=== PATIENT | male | born 1960 | race Caucasian/White ===

== ENCOUNTER → 2020-07-29 14:45 | Outpatient (BNVA) | payer OTHER, SELFPAY | PROVIDERS: PCP Internal Medicine; Referring Provider Internal Medicine; Visit Provider Urology | DX: R35.1 Nocturia (principal); N40.1 Benign prostatic hyperplasia with lower urinary tract symptoms; N13.8 Other obstructive and reflux uropathy; Z88.8 Allergy status to other drugs, medicaments and biological substances; Z12.5 Encounter for screening for malignant neoplasm of prostate | CPT/HCPCS: 99202 ==

== ENCOUNTER 2020-08-12 10:21 | Outpatient (REF) | payer OTHER, SELFPAY ==
[2020-08-12 13:50] LABS: Urine Cytology See Pathology rpt
[2020-08-12 14:22] LABS: Cholesterol 134 mg/dL; Glucose Fasting 97 mg/dL (60-99); HDL Cholesterol 50 mg/dL; LDL Cholesterol Calculated 75 mg/dl; Triglycerides 46 mg/dL
[2020-08-12 14:31] LABS: Estimated Average Glucose 126 mg/dL
[2020-08-12 14:36] LABS: PSA,Total (Free>4and<10) 1.27 ng/mL (0.00-4.00)
== END 2020-08-12 10:22 | disposition home or self-care (01) ==
LOC: HO.10HDL 10:21
PROVIDERS: Absent Provider Internal Medicine; PCP Internal Medicine; Visit Provider Urology
DX: N40.1 Benign prostatic hyperplasia with lower urinary tract symptoms (principal); N13.8 Other obstructive and reflux uropathy; E11.9 Type 2 diabetes mellitus without complications
CPT/HCPCS: 80061; 82947; 83036; 84153; 88112

== ENCOUNTER 2020-08-28 11:18 | Outpatient (REF) | payer OTHER, SELFPAY ==
--- NOTE | 2020-08-28 11:22 | US_ITS ---
EXAMINATION: US PELVIS LIMITED (BLADDER) CLINICAL INFORMATION: Poor urinary stream. COMPARISON: CT abdomen and pelvis with contrast dated 11/03/2015. TECHNIQUE: Real-time imaging of the bladder. FINDINGS: BLADDER: Well distended and normal. Bilateral ureteral jets are demonstrated. Prevoid bladder volume is 171.8 mL. Postvoid bladder volume is 9.9 mL. Prostate volume is 28.5 mL. There is a hypoechoic avascular area seen in central prostate gland. US/US bladder IMPRESSION: Tiny postvoid residual bladder volume. Hypoechoic avascular area in the prostate may represent a TURP defect. Correlate with clinical or surgical history.
== END 2020-08-28 11:19 | disposition home or self-care (01) ==
LOC: HO.US 11:18
PROVIDERS: PCP Internal Medicine; Visit Provider Urology
DX: N40.1 Benign prostatic hyperplasia with lower urinary tract symptoms (principal); R39.12 Poor urinary stream; N13.8 Other obstructive and reflux uropathy
CPT/HCPCS: 76857

== ENCOUNTER → 2020-09-04 14:56 | Outpatient (BNVA) | payer OTHER, SELFPAY | PROVIDERS: Visit Provider Urology | DX: Z76.89 Persons encountering health services in other specified circumstances (principal) ==

== ENCOUNTER → 2020-10-02 10:23 | Outpatient (BNVA) | payer OTHER, SELFPAY | PROVIDERS: Visit Provider Urology | DX: N40.1 Benign prostatic hyperplasia with lower urinary tract symptoms (principal); R35.1 Nocturia; N13.8 Other obstructive and reflux uropathy | CPT/HCPCS: 81002; 99212 ==

== ENCOUNTER 2020-12-19 08:44 | Outpatient (REF) | payer OTHER, SELFPAY ==
[2020-12-19 10:48] LABS: MANUAL DIFF FLAG NO
[2020-12-19 11:00] LABS: Basophils Percent Auto 0.8 % (0-2); Eosinophils Absolute Auto 0.1 X10*3/uL (0.0-0.4); Eosinophils Percent Auto 1.7 % (0-4); Hematocrit 38.9 % (42-52); Hemoglobin 12.6 g/dl (14.0-18.0); Imm Gran Abs Auto 0.01 X10*3/uL (0.00-0.03); Imm Gran Pct Auto 0.2 % (0.0-0.4); Lymphocytes Percent Auto 20.5 % (20-40); Mean Corpuscular HGB Conc 32.4 g/dl (31.0-36.0); Mean Corpuscular Hemoglobin 30.1 pg (27.0-33.0); Mean Corpuscular Volume 92.8 fL (80-98); Mean Platelet Volume 11.4 fL (9.4-12.4); Monocytes Absolute Auto 0.3 X10*3/uL (0.1-1.2); Monocytes Percent Auto 6.3 % (2-11); Neutrophils Absolute Auto 3.4 X10*3/uL (2.0-8.3); Neutrophils Percent Auto 70.5 % (45-73); Platelet Count 158 X10*3/uL (160-400); Red Blood Count 4.19 X10*6/uL (4.60-5.80); Red Cell Distribution Width 13.5 % (11.0-16.0); White Blood Count 4.8 X10*3/uL (4.8-10.8)
[2020-12-19 11:17] LABS: Alanine Aminotransferase 15 U/L (0-40); Albumin Level 4.2 g/dL (3.5-5.0); Alkaline Phosphatase 80 U/L (39-117); Anion Gap 14 (12-20); Aspartate Amino Transferase 15 U/L (5-37); Bilirubin Total < 0.2 mg/dL (0.0-1.0); Blood Urea Nitrogen 17 mg/dL (9-16); Calcium 8.8 mg/dL (8.4-10.2); Carbon Dioxide 27 mmol/L (22-29); Chloride 106 mmol/L (96-108); Cholesterol 154 mg/dL; Estimated Glomerular Filt Rate > 60; Glucose Fasting 107 mg/dL (60-99); HDL Cholesterol 44 mg/dL; LDL Cholesterol Calculated 80 mg/dl; Potassium 3.5 mmol/L (3.3-5.1); Sodium 143 mmol/L (135-145); Total Protein 6.5 g/dL (6.5-8.0); Triglycerides 153 mg/dL
[2020-12-19 11:18] LABS: Estimated Average Glucose 123 mg/dL; Hemoglobin A1c % 5.9 %
== END 2020-12-19 08:45 | disposition home or self-care (01) ==
LOC: HO.10HDL 08:44
PROVIDERS: Visit Provider Internal Medicine
DX: Z00.00 Encounter for general adult medical examination without abnormal findings (principal); E11.9 Type 2 diabetes mellitus without complications
CPT/HCPCS: 36415; 80053; 80061; 83036; 85025

== ENCOUNTER 2021-06-19 07:59 | Outpatient (REF) | payer OTHER, SELFPAY ==
[2021-06-19 10:29] LABS: Estimated Average Glucose 123 mg/dL; Hemoglobin A1c % 5.9 %
[2021-06-19 10:33] LABS: Alanine Aminotransferase 21 U/L (0-40); Albumin Level 4.2 g/dL (3.5-5.0); Alkaline Phosphatase 76 U/L (39-117); Anion Gap 12 (12-20); Aspartate Amino Transferase 22 U/L (5-37); Bilirubin Total 0.5 mg/dL (0.0-1.0); Blood Urea Nitrogen 20 mg/dL (9-16); Calcium 9.3 mg/dL (8.4-10.2); Carbon Dioxide 27 mmol/L (22-29); Chloride 106 mmol/L (96-108); Cholesterol 150 mg/dL; Estimated Glomerular Filt Rate > 60; Glucose Fasting 124 mg/dL (60-99); HDL Cholesterol 49 mg/dL; LDL Cholesterol Calculated 85 mg/dl; Potassium 3.6 mmol/L (3.3-5.1); Sodium 141 mmol/L (135-145); Total Protein 6.6 g/dL (6.5-8.0); Triglycerides 82 mg/dL
[2021-06-19 10:50] LABS: Prostate Specific Antigen 0.89 ng/mL (<0.05-4.0); Thyroid Stimulating Hormone 3.03 uIU/mL (0.32-4.0)
== END 2021-06-19 08:00 | disposition home or self-care (01) ==
LOC: HO.10HDL 07:59
PROVIDERS: Absent Provider Urology; Visit Provider Internal Medicine
DX: Z12.5 Encounter for screening for malignant neoplasm of prostate (principal); E11.9 Type 2 diabetes mellitus without complications; N40.1 Benign prostatic hyperplasia with lower urinary tract symptoms; N13.8 Other obstructive and reflux uropathy; E03.9 Hypothyroidism, unspecified
CPT/HCPCS: 36415; 80053; 80061; 83036; 84153; 84443

== ENCOUNTER → 2021-06-23 10:56 | Outpatient (BNVA) | payer OTHER, SELFPAY | PROVIDERS: Visit Provider Urology ==

== ENCOUNTER 2021-12-21 09:02 | Outpatient (REF) | payer OTHER, SELFPAY ==
[2021-12-21 10:53] LABS: Estimated Average Glucose 126 mg/dL
[2021-12-21 11:00] LABS: Cholesterol 159 mg/dL; Glucose Fasting 119 mg/dL (60-99); HDL Cholesterol 47 mg/dL; LDL Cholesterol Calculated 94 mg/dl; Triglycerides 92 mg/dL
[2021-12-21 11:25] LABS: Thyroid Stimulating Hormone 2.14 uIU/mL (0.32-4.0)
== END 2021-12-21 09:03 | disposition home or self-care (01) ==
LOC: HO.10HDL 09:02
PROVIDERS: Visit Provider Internal Medicine
DX: E11.65 Type 2 diabetes mellitus with hyperglycemia (principal); E03.9 Hypothyroidism, unspecified
CPT/HCPCS: 36415; 80061; 82947; 83036; 84443

== ENCOUNTER → 2022-01-12 13:18 | Outpatient (BNVA) | payer OTHER, SELFPAY | PROVIDERS: PCP Internal Medicine; Visit Provider Orthopaedic Surgery | DX: M65.342 Trigger finger, left ring finger (principal) | CPT/HCPCS: 20550; 99202; J1100 ==

== ENCOUNTER 2022-05-05 09:12 | Outpatient (REF) | payer OTHER, SELFPAY ==
[2022-05-05 11:07] LABS: Estimated Average Glucose 123 mg/dL; Hemoglobin A1c % 5.9 %
[2022-05-05 11:15] LABS: Cholesterol 142 mg/dL; Glucose Fasting 106 mg/dL (60-99); HDL Cholesterol 56 mg/dL; LDL Cholesterol Calculated 72 mg/dl; Triglycerides 72 mg/dL
[2022-05-05 11:37] LABS: Thyroid Stimulating Hormone 1.61 uIU/mL (0.32-4.0)
== END 2022-05-05 09:13 | disposition home or self-care (01) ==
LOC: HO.10HDL 09:12
PROVIDERS: Visit Provider Internal Medicine
DX: Z00.00 Encounter for general adult medical examination without abnormal findings (principal); E03.9 Hypothyroidism, unspecified; E11.65 Type 2 diabetes mellitus with hyperglycemia
CPT/HCPCS: 36415; 80061; 82947; 83036; 84443

== ENCOUNTER 2022-06-16 09:41 | Outpatient (REF) | payer OTHER, SELFPAY ==
[2022-06-16 11:25] LABS: Prostate Specific Antigen 0.81 ng/mL (<0.05-4.0)
== END 2022-06-16 09:42 | disposition home or self-care (01) ==
LOC: HO.10HDL 09:41
PROVIDERS: Visit Provider Urology
DX: N40.1 Benign prostatic hyperplasia with lower urinary tract symptoms (principal); N13.8 Other obstructive and reflux uropathy; Z12.5 Encounter for screening for malignant neoplasm of prostate
CPT/HCPCS: 36415; 84153

== ENCOUNTER → 2022-06-22 08:31 | Outpatient (BNVA) | payer OTHER, SELFPAY | PROVIDERS: PCP Internal Medicine; Visit Provider Urology | DX: N40.1 Benign prostatic hyperplasia with lower urinary tract symptoms (principal); R35.1 Nocturia; N13.8 Other obstructive and reflux uropathy | CPT/HCPCS: 51798; 99212 ==

== ENCOUNTER 2022-09-10 13:45 | Emergency (ER) | payer OTHER, SELFPAY ==
[2022-09-10 13:55] VITALS: BP 151/87; PULSE 123; RESP 18; TEMP 36.1; O2SAT 96; BMI 27.6
--- NOTE | 2022-09-10 14:17 | ED.GENADULT ---
HPI - General Adult General Chief complaint: General Medical Stated complaint: vomiting, Covid + Time Seen by Provider: 09/10/22 14:17 Source: patient and family (patient's ) Mode of arrival: ambulatory Limitations: no limitations History of Present Illness HPI narrative: Patient is a 62 year old assigned male at with a history of DM presenting to the emergency department today with nausea and vomiting. Patient states that 5 days ago he was diagnosed with COVID-19 and was started on Paxlovid. Patient states that he has continued being nauseous and vomiting. Patient states that he has Zofran at home. Patient denies any dizziness, lightheadedness, abdominal pain, fever, chills, blurry vision, double vision, loss of vision, chest pain, difficulty breathing, shortness of breath, back pain, night sweats, pain with urination, increased urinary frequency, increased urinary urgency, blood in his urine or stool, syncope or a near syncopal episode, recent trauma or falls, bowel incontinence, bladder incontinence, bowel retention, bladder retention, or any other complaints at this time. Onset (ago): day(s) (5) Severity: mild Severity scale (1-10): 3 Relieving factors: none Exacerbating factors: none Associated symptoms: nausea/vomiting Treatments prior to arrival: none Related Data Home Medications Medication Instructions Recorded Confirmed aspirin 81 mg tablet,delayed 81 mg PO DAILY 07/03/21 07/15/22 release (Adult Low Dose Aspirin) Previous Rx's Medication Instructions Recorded glipizide 5 mg tablet, extended 5 mg PO DAILY #90 tabs 09/28/21 release 24 hr hydrochlorothiazide 12.5 mg tablet 12.5 mg PO DAILY #90 tabs 09/28/21 levothyroxine 50 mcg tablet 50 mcg PO DAILY #90 tabs 09/28/21 metformin 500 mg tablet 500 mg PO BID #180 tabs 09/28/21 omeprazole 20 mg capsule,delayed 20 mg PO DAILY #90 caps 09/28/21 release pravastatin 80 mg tablet 80 mg PO DAILY #90 tabs 11/16/21 amlodipine 5 mg tablet 5 mg PO DAILY #90 tabs 12/07/21 blood sugar diagnostic (FreeStyle #200 ea 12/21/21 Lite Strips) lancets 28 gauge #200 ea 12/21/21 finasteride 5 mg tablet 5 mg PO DAILY 90 days #90 tabs 10/04/22 terazosin 5 mg capsule 5 mg PO BEDTIME 90 days #90 caps 06/22/22 meclizine 25 mg chewable tablet 25 mg PO DAILY #90 tabs 08/20/22 ondansetron 4 mg disintegrating 4 mg PO Q8H #10 tabs 08/20/22 tablet nirmatrelvir 300 mg (150 mg See Rx Instructions PO .COMPLEX 09/06/22 x2)-ritonavir 100 mg tablet,dose #30 tabs pack(EUA) (Paxlovid) ondansetron HCl 4 mg tablet 4 mg PO Q8H PRN nausea and 09/09/22 vomiting #20 tabs Allergies Allergy/AdvReac Type Severity Reaction Status Date / Time lisinopril [LISINOPRIL] Allergy Severe ANGIOEDEMA, Verified 07/15/22 14:43 hives Review of Systems Constitutional: Constitutional: Reports no additional constitutional complaints, Denies chills, Denies fever(s) and Denies night sweats Eyes: Eyes: Reports no additional eye complaints, Denies blurry vision, Denies change in vision, Denies diplopia, Denies eye discharge, Denies loss of vision and Denies eye pain ENT: Denies dizziness Cardiovascular: Cardiovascular: Reports no additional cardiovascular complaints, Denies chest pain, Denies lightheadedness, Denies Loss of Consciousness and Denies dyspnea Respiratory: Respiratory: Reports no additional respiratory complaints and Denies dyspnea Gastrointestinal: Gastrointestinal: Reports no additional gastrointestinal complaints, Denies abdominal pain, Denies melena, Denies hematochezia, Denies change in bowel habits, Denies change in stool character, Reports nausea and Reports vomiting Genitourinary: Genitourinary: Reports no additional male genitourinary complaints, Denies hematuria, Denies oliguria, Denies difficulty urinating, Denies dysuria, Denies urinary frequency, Denies urinary hesitancy, Denies urinary incontinence and Denies urinary urgency Musculoskeletal: Musculoskeletal: Reports no additional musculoskeletal complaints, Denies numbness and Denies tingling Neurologic: Denies dizziness, Denies loss of vision, Denies numbness and Denies tingling Psychiatric: Psychiatric: Reports no additional psychiatric complaints Endocrine: Endocrine: Reports no additional endocrine complaints Hematologic/Lymphatic: Hematologic/Lymphatic: Reports no additional hematologic/lymphatic complaints Allergic/Immunologic: Allergic/Immunologic: Reports no additional allergic/immunologic complaints PMFSH Past Medical History Attestation statement: The following information was validated with the patient. Source: old records reviewed, obtained from family (patient's ) and nursing notes reviewed Medical History Diabetes Diabetes mellitus with coincident hypertension Hypertension Hypothyroidism Surgical History History of cholecystectomy History of umbilical hernia repair Family History Family History Father No problems noted. Mother No problems noted. Son Substance use disorder Other Mental health disorder Social History Social History Housing: House Alcohol intake: current Alcohol intake frequency: holidays/special occasions only Patient Tobacco Use Status: Former Tobacco user Tobacco use type: Cigarette e-Cigarette/Vaping Use: Never Used Second Hand Smoke Exposure: No Advance Directives: Yes Advance Directives Information Provided: Yes Advance Directives on File: No service: Yes Current occupational status: retired Current occupation: rt hand Cognitive needs: No Hearing needs: No Vision needs: Yes Physical Exam ED Vital Signs: Vital Signs - 24 hr 09/10/22 13:55 Temperature 97 F Pulse Rate 123 H Respiratory Rate 18 Blood Pressure 151/87 H Pulse Oximetry 96 Oxygen Delivery Method Room Air BMI result Body Mass Index 27.6 Const General: cooperative, no acute distress, alert and awake Nutritional Appearance: well nourished Orientation/consciousness: patient oriented x3 Limitations: no limitations [facility] Head: Yes normal to inspection and Yes atraumatic Ears: hearing grossly normal bilaterally and external ears normal General nose exam: Normal external nose present, no nasal discharge noted and no epistaxis Face and sinus: Yes normal facial exam, No abrasion and No laceration Mouth: Normal oral and palatal mucosa present, no drooling and no muffled voice Eyes General: appearance normal, both eyes and all related structures Periorbital: periorbital findings normal Eyelids: Yes eyelids normal Conjunctivae: conjunctivae normal Pupils: Equal, round and reactive pupils present EOM: EOMs intact bilaterally Neck Neck: Yes normal visual inspection, Yes full ROM and Yes no lymphadenopathy Chest Chest palpation & inspection: normal inspection of the chest Resp Effort & Inspection: normal respiratory effort and able to speak in complete sentences Auscultation: clear to auscultation bilaterally Cardio Rate: regular rate Rhythm: regular rhythm GI Inspection: Yes normal to inspection Palpation (GI): Soft to palpation, not firm, nontender and no guarding Neuro General: patient oriented x3 and moves all extremities Cranial nerves: Yes Equal, round and reactive pupils present Cognition (Neuro): normal cognition Motor exam (neuro): 5/5 motor strength present throughout Sensory Exam: Normal double simultaneous stimulation for sensation Coordination: [id number] test normal Extrem General: Yes normal to inspection, Yes full ROM and Yes capillary refill normal Psych Appearance: grossly normal Mental Status: mental status grossly normal Affect: normal affect Attitude: cooperative Thought process: Normal thought process present Thought content: Normal thought content present Insight: Good insight present (Psych) Medications Administered Discontinued Medications Generic Name Dose Route Start Last Admin Trade Name Freq PRN Reason Stop Dose Admin Sodium Chloride 1,000 mls @ 999 mls/hr 09/10/22 14:30 09/10/22 15:01 Ns IV 09/10/22 15:30 999 mls/hr .Q1H1M [place] Administration Metoclopramide HCl 10 mg 09/10/22 14:29 09/10/22 15:01 Metoclopramide Hcl 10 Mg/2 Ml Vial IVPUSH 09/10/22 14:30 10 mg ONCE ONE Administration Medical Decision Making Medical Decision Making [facility] Narrative: Patient is a 62 year old assigned male at with a history of DM presenting to the emergency department today with nausea and vomiting. Patient's physical exam was unremarkable. Patient's blood work showed a decreased potassium of 2.9 but was otherwise unremarkable. I explained my physical exam findings as well as all test results to the patient and the patient's . I answered all questions asked by the patient and the patient's . Patient received IV potassium and PO Potassium. I stressed the importance of the patient taking his medication as prescribed. I stressed the importance of the patient following up with his primary care provider. I stressed the importance of the patient returning to the emergency department immediately if his symptoms were to worsen or if he were to develop any dizziness, shortness of breath, difficulty breathing, chest pain, blurry vision, loss of vision, nausea, vomiting, abdominal pain, fever, chills, back pain, or any other complaints. Patient and the patient's verbalized agreement and understanding with this treatment plan and discharge. Differential Diagnosis Differential Diagnoses: The differential diagnosis associated with the presentation includes COVID-19, nausea, vomiting, hypokalemia Lab Data MDM Lab Attestation statement: I reviewed the patient's lab results. Result Diagrams: 09/10/22 14:55 09/10/22 14:55 Labs: Lab Results 09/10/22 09/10/22 Range/Units 14:55 14:55 WBC 6.3 (4.8-10.8) X10*3/uL RBC 4.83 (4.60-5.80) X10*6/uL Hgb 14.5 (14.0-18.0) g/dl Hct 41.6 L (42.0-52.0) % MCV 86.1 (80.0-98.0) fL MCH 30.0 (27.0-33.0) pg MCHC 34.9 (31.0-36.0) g/dl RDW 12.8 (11.0-16.0) % Plt Count 167 (160-400) X10*3/uL MPV 10.7 (9.4-12.4) fL Immature Gran % (Auto) 0.3 (0.0-0.4) % Neut % (Auto) 81.9 H (45-73) % Lymph % (Auto) 11.4 L (20-40) % Traverse % (Auto) 5.9 (2-11) % Eos % (Auto) 0.2 (0-4) % Baso % (Auto) 0.3 (0-2) % Lymph # (Auto) 0.7 L (1.2-4.9) X10*3/uL [place] # (Auto) 0.4 (0.1-1.2) X10*3/uL Eos # (Auto) 0.0 (0.0-0.4) X10*3/uL Baso # (Auto) 0.0 (0.0-0.2) X10*3/uL Abs Immat Gran (auto) 0.02 (0.00-0.03) X10*3/uL Absolute Neuts (auto) 5.2 (2.0-8.3) x10*3/uL Absolute Nucleated RBC 0.000 (0.0-0.012) X10*3/uL Nucleated RBC % (auto) 0.0 (0.0-0.2) /100WBC Sodium 138 (135-145) mmol/L Potassium 2.9 L (3.3-5.1) mmol/L Chloride 99 (96-108) mmol/L Carbon Dioxide 24 (22-29) mmol/L Anion Gap 18 (12-20) BUN 19 H (9-16) mg/dL Creatinine 1.24 (0.5-1.4) mg/dL Estim Creat Clear Calc 60.9 Estimated GFR 59 Random Glucose 215 H (60-115) mg/dL Calcium 9.8 (8.4-10.2) mg/dL Total Bilirubin 0.8 (0.0-1.0) mg/dL AST 18 (5-37) U/L ALT 20 (0-40) U/L Alkaline Phosphatase 112 (39-117) U/L Total Protein 7.3 (6.5-8.0) g/dL Albumin 4.6 (3.5-5.0) g/dL Independent Historian Clinical information obtained from an independent historian. History obtained from or confirmed by: Spouse Chronic Conditions Patient?s care impacted by: Diabetes Discharge Plan Discharge Clinical Impression: Hypokalemia, COVID-19 Patient Disposition: Home, Self-Care Instructions: Potassium Content of Foods List (ED), Hypokalemia (ED), COVID-19 (Coronavirus Disease 2019) (ED) Additional Instructions: Eat potassium rich foods. Follow up with your primary care provider. Return to the emergency department immediately if your symptoms worsen or if you develop any dizziness, shortness of breath, difficulty breathing, chest pain, blurry vision, loss of vision, nausea, vomiting, abdominal pain, fever, chills, back pain, or any other complaints. Prescriptions: No Action glipizide 5 mg tablet extended release 24 hr 5 mg PO DAILY Qty: 90 8RF hydrochlorothiazide 12.5 mg tablet 12.5 mg PO DAILY Qty: 90 8RF metformin 500 mg tablet 500 mg PO BID Qty: 180 8RF levothyroxine 50 mcg tablet 50 mcg PO DAILY Qty: 90 8RF omeprazole 20 mg capsule,delayed release(DR/EC) 20 mg PO DAILY Qty: 90 8RF pravastatin 80 mg tablet 80 mg PO DAILY Qty: 90 8RF amlodipine 5 mg tablet 5 mg PO DAILY Qty: 90 8RF (DME) lancets 28 gauge misc See Rx Instructions topical .MEDSUPPLY Qty: 200 8RF Rx Instructions: FREESTYLE 28G- TO CHECK BLOOD SUGARS TWICE A DAY (DME) FreeStyle Lite Strips Strip See Rx Instructions .ROUTE .MEDSUPPLY Qty: 200 8RF Rx Instructions: TO CHECK BLOOD SUGARS TWICE A DAY meclizine 25 mg tablet,chewable 25 mg PO DAILY Qty: 90 8RF ondansetron 4 mg tablet,disintegrating 4 mg PO Q8H Qty: 10 0RF Paxlovid (EUA) 300 mg (150 mg x 2)-100 mg tablets,dose pack See Rx Instructions PO .COMPLEX Qty: 30 0RF Rx Instructions: take TWO 150 mg tablets of nirmatrelvir with ONE 100 mg tablet of ritonavir twice daily for 5 days PO ondansetron HCl 4 mg tablet 4 mg PO Q8H PRN (Reason: nausea and vomiting) Qty: 20 0RF aspirin [Adult Low Dose Aspirin] 81 mg tablet,delayed release (DR/EC) 81 mg PO DAILY terazosin 5 mg capsule 5 mg PO BEDTIME 90 Days Qty: 90 3RF finasteride 5 mg tablet 5 mg PO DAILY 90 Days Qty: 90 3RF Referrals: Aguila Gtz MD [Primary Care Provider] - Stand Alone Forms: Work/School Release Print Language: Northern Irish
[2022-09-10 14:59] LABS: MANUAL DIFF FLAG NO
[2022-09-10 15:01] LABS: Basophils Percent Auto 0.3 % (0-2); Eosinophils Percent Auto 0.2 % (0-4); Hematocrit 41.6 % (42.0-52.0); Hemoglobin 14.5 g/dl (14.0-18.0); Imm Gran Abs Auto 0.02 X10*3/uL (0.00-0.03); Imm Gran Pct Auto 0.3 % (0.0-0.4); Lymphocytes Absolute Auto 0.7 X10*3/uL (1.2-4.9); Lymphocytes Percent Auto 11.4 % (20-40); Mean Corpuscular HGB Conc 34.9 g/dl (31.0-36.0); Mean Corpuscular Volume 86.1 fL (80.0-98.0); Mean Platelet Volume 10.7 fL (9.4-12.4); Monocytes Absolute Auto 0.4 X10*3/uL (0.1-1.2); Monocytes Percent Auto 5.9 % (2-11); Neutrophils Absolute Auto 5.2 x10*3/uL (2.0-8.3); Neutrophils Percent Auto 81.9 % (45-73); Platelet Count 167 X10*3/uL (160-400); Red Blood Count 4.83 X10*6/uL (4.60-5.80); Red Cell Distribution Width 12.8 % (11.0-16.0); White Blood Count 6.3 X10*3/uL (4.8-10.8)
[2022-09-10] MEDS: Metoclopramide HCl 10 MG/2 ML VIAL IVPUSH (15:01)
[2022-09-10] MEDS: 0.9 % Sodium Chloride 1,000 ML 999 ML IV (15:01)
[2022-09-10 15:26] LABS: Alanine Aminotransferase 20 U/L (0-40); Albumin Level 4.6 g/dL (3.5-5.0); Alkaline Phosphatase 112 U/L (39-117); Anion Gap 18 (12-20); Aspartate Amino Transferase 18 U/L (5-37); Bilirubin Total 0.8 mg/dL (0.0-1.0); Blood Urea Nitrogen 19 mg/dL (9-16); Calcium 9.8 mg/dL (8.4-10.2); Carbon Dioxide 24 mmol/L (22-29); Chloride 99 mmol/L (96-108); Creatinine Clr Calc Pharmacy 60.9; Estimated Glomerular Filt Rate 59; Glucose Random 215 mg/dL (60-115); Potassium 2.9 mmol/L (3.3-5.1); Sodium 138 mmol/L (135-145); Total Protein 7.3 g/dL (6.5-8.0)
[2022-09-10] MEDS: Potassium Chloride Packet 20 MEQ PACKET 40 MEQ PO (16:39)
== END 2022-09-10 16:46 | disposition home or self-care (01) ==
PROVIDERS: Emergency Provider Student in an Organized Health Care Education/Training Program; PCP Internal Medicine
DX: U07.1 COVID-19 (principal); E87.6 Hypokalemia; Z87.891 Personal history of nicotine dependence; Z79.899 Other long term (current) drug therapy
CPT/HCPCS: 36415; 80053; 85025; 96374; 99284; J2765

== ENCOUNTER 2023-01-03 07:50 | Outpatient (REF) | payer OTHER, SELFPAY ==
[2023-01-03 10:32] LABS: MANUAL DIFF FLAG NO
[2023-01-03 10:36] LABS: Basophils Percent Auto 0.6 % (0-2); Eosinophils Absolute Auto 0.1 X10*3/uL (0.0-0.4); Eosinophils Percent Auto 2.3 % (0-4); Hematocrit 40.8 % (42.0-52.0); Hemoglobin 13.2 g/dl (14.0-18.0); Imm Gran Abs Auto 0.01 X10*3/uL (0.00-0.03); Imm Gran Pct Auto 0.2 % (0.0-0.4); Lymphocytes Absolute Auto 1.2 X10*3/uL (1.2-4.9); Lymphocytes Percent Auto 26.2 % (20-40); Mean Corpuscular HGB Conc 32.4 g/dl (31.0-36.0); Mean Corpuscular Volume 92.7 fL (80.0-98.0); Mean Platelet Volume 11.6 fL (9.4-12.4); Monocytes Absolute Auto 0.4 X10*3/uL (0.1-1.2); Monocytes Percent Auto 7.9 % (2-11); Neutrophils Absolute Auto 2.9 x10*3/uL (2.0-8.3); Neutrophils Percent Auto 62.8 % (45-73); Platelet Count 150 X10*3/uL (160-400); Red Cell Distribution Width 13.5 % (11.0-16.0); White Blood Count 4.7 X10*3/uL (4.8-10.8)
[2023-01-03 10:47] LABS: Estimated Average Glucose 131 mg/dL; Hemoglobin A1c % 6.2 %
[2023-01-03 10:58] LABS: Alanine Aminotransferase 18 U/L (0-40); Albumin Level 4.2 g/dL (3.5-5.0); Alkaline Phosphatase 82 U/L (39-117); Anion Gap 12 (12-20); Aspartate Amino Transferase 19 U/L (5-37); Bilirubin Total 0.4 mg/dL (0.0-1.0); Blood Urea Nitrogen 18 mg/dL (9-16); Calcium 9.3 mg/dL (8.4-10.2); Carbon Dioxide 25 mmol/L (22-29); Chloride 108 mmol/L (96-108); Cholesterol 153 mg/dL; Estimated Glomerular Filt Rate > 60; Glucose Fasting 116 mg/dL (60-99); HDL Cholesterol 41 mg/dL; LDL Cholesterol Calculated 83 mg/dl; Potassium 4.1 mmol/L (3.3-5.1); Sodium 141 mmol/L (135-145); Total Protein 6.4 g/dL (6.5-8.0); Triglycerides 148 mg/dL
== END 2023-01-03 07:51 | disposition home or self-care (01) ==
LOC: HO.10HDL 07:50
PROVIDERS: Visit Provider Internal Medicine
DX: Z13.0 Encounter for screening for diseases of the blood and blood-forming organs and certain disorders involving the immune mechanism (principal); E11.9 Type 2 diabetes mellitus without complications; E78.5 Hyperlipidemia, unspecified; I10 Essential (primary) hypertension
CPT/HCPCS: 36415; 80053; 80061; 83036; 85025

== ENCOUNTER 2023-06-14 08:41 | Outpatient (REF) | payer OTHER, SELFPAY ==
[2023-06-14 09:56] LABS: Estimated Average Glucose 128 mg/dL; Hemoglobin A1C 127.4275 umol/L; Hemoglobin A1c % 6.1 % (<6.0)
[2023-06-14 10:14] LABS: Cholesterol 151 mg/dL (<200); Glucose Fasting 125 mg/dL (60-99); HDL Cholesterol 48 mg/dL (>40); LDL Cholesterol Calculated 90 mg/dL (<100); Triglycerides 66 mg/dL (<150)
== END 2023-06-14 08:42 | disposition home or self-care (01) ==
LOC: HO.LAB 08:41
PROVIDERS: Absent Provider Internal Medicine; PCP Internal Medicine; Visit Provider Urology
DX: Z12.5 Encounter for screening for malignant neoplasm of prostate (principal); N40.1 Benign prostatic hyperplasia with lower urinary tract symptoms; N13.8 Other obstructive and reflux uropathy; E78.5 Hyperlipidemia, unspecified; R73.9 Hyperglycemia, unspecified
CPT/HCPCS: 36415; 80061; 82947; 83036; 84153

== ENCOUNTER 2023-06-21 08:31 | Outpatient (AMB) | payer OTHER, SELFPAY ==
--- NOTE | 2023-06-21 08:42 | A.OFFVIS_ITS ---
Intake Intake Visit Reasons: 1Y PVR Intake Note: Patient is Present for Follow Up PVR Urology Medication: Finasteride, Terazosin Antibiotic Allergies:None Blood Thinners: Aspirin Pharmacy: [facility] PVR: 0ml Allergies lisinopril [LISINOPRIL] Allergy (Severe, Verified 06/21/23 08:43) ANGIOEDEMA, hives Medication List - Last Reconciled 06/21/23 by Michael Quintanilla MD amlodipine 5 mg PO DAILY aspirin (Adult Low Dose Aspirin) 81 mg PO DAILY blood sugar diagnostic (FreeStyle Lite Strips) TO CHECK BLOOD SUGARS TWICE A DAY finasteride 5 mg PO DAILY 90 days glipizide ER 5 mg PO DAILY hydrochlorothiazide 12.5 mg PO DAILY lancets FREESTYLE 28G- TO CHECK BLOOD SUGARS TWICE A DAY levothyroxine 50 mcg PO DAILY meclizine 25 mg PO DAILY metformin 500 mg PO BID omeprazole 20 mg PO DAILY ondansetron HCl 4 mg PO Q8H PRN pravastatin 80 mg PO DAILY terazosin 5 mg PO BEDTIME 90 days HPI HPI Comments History of Present Illness Details Valdemar is a pleasant male. He is a patient of Dr. Ward. He is seen for the following urologic conditions. - lower urinary tract symptoms Tried stopping terazosin last year. Needed to restart within 5 days May reduce finasteride back to Tuesday, Tuesday, Tuesday Otherwise only has nocturia x1 Lower urinary tract symptoms Current visit is for - further evaluation of lower urinary tr act symptoms Current treatment includes - terazosin 5 mg, finasteride Prior treatments include - tamsulosin Prostate Symptom Score - mild, bother 2 Symptoms include - weak stream, incomplete emptying and h ad been improving Results from testing include - Renal/bladder us Yes Date August 2020 PVR 10 Prostate Size 40 Prior Prostate Score mild PSA 09/07 1.3, 05/10 0.8, 06/11 0.8 Prostate volume 30 Testing at next visit will include - PVR Treatment plan continue with medications. Prescriptions provided [facility] Medical History Diabetes mellitus with coincident hypertension Hypertension Hypothyroidism Diabetes Surgical History History of umbilical hernia repair History of cholecystectomy Family History Father No problems noted. Mother No problems noted. Son Substance use disorder Other Mental health disorder Social History Housing: House Alcohol intake: current Alcohol intake frequency: holidays/special occasions only Patient Tobacco Use Status: Former Tobacco user Tobacco use type: Cigarette e-Cigarette/Vaping Use: Never Used Second Hand Smoke Exposure: No service: Yes Current occupational status: retired Current occupation: rt hand Cognitive needs: No Hearing needs: No Vision needs: Yes Review of Systems Const Denies chills and Denies fever(s) Card Reports no additional complaints and Denies syncope Resp Denies cough GI Denies abdominal pain and Denies heartburn Reports as per HPI and Denies change in libido Neuro Denies syncope Psych Denies change in libido Endo Denies change in libido Physical Exam Const General: cooperative, healthy appearing, comfortable and no acute distress Orientation/consciousness: patient oriented x3 HEENT Face and sinus: Yes normal facial exam Mouth: moist mucous membranes Neck Neck: Yes normal visual inspection, Yes full ROM and Yes trachea midline Chest Chest palpation & inspection: normal inspection of the chest Resp Effort & Inspection: normal respiratory effort, able to speak in complete sentences and no respiratory distress GI Inspection: Yes normal to inspection Back/Spine/Pelvis Cervical Spine: normal cervical lordosis Thoracic/Lumbar Spine: thoracic and lumbar spine normal to inspection Skin General skin exam: no rashes or lesions noted Neuro General: patient oriented x3, gait normal, tone normal and moves all extremities Extrem General: Yes normal to inspection and Yes capillary refill normal Office Procedures Post Void Residual Post Residual Void Post Void Residual (PVR): 0 [id number]-[id number] Void Residual by ultrasound Results AMB Urinalysis, Automated UA Leukoctes 0 Marcel/uL Last Edit by LACEY Garcia on 06/21/23 08:51 UA Nitrite Negative Last Edit by LACEY Garcia on 06/21/23 08:51 UA Urobilinogen 0.2 mg/dL Last Edit by LACEY Garcia on 06/21/23 08:5 1 UA Protein 0 mg/dL Last Edit by LACEY Garcia on 06/21/23 08:51 UA pH 6.0 Last Edit by LACEY Garcia on 06/21/23 08:51 UA Blood 0 Enoc/uL Last Edit by SANDER GarciaA on 06/21/23 08:51 UA Specific [place] 1.015 Last Edit by Tish Rosado RMA on 06/21/23 08: 51 UA Ketone Negative Last Edit by Tish Rosado RMA on 06/21/23 08:51 UA Bilirubin 1 mg/dL Last Edit by Tish Rosado RMA on 06/21/23 08:51 UA Glucose 0 mg/dL Last Edit by Tish Rosado A on 06/21/23 08:51 Results Reviewed Results Reviewed: Laboratory Last Values Urine pH (Auto) 6.0 06/21/23 08:43 Specific [place] (Auto) 1.015 06/21/23 08:43 Urine Protein (Auto) 0 mg/dL 06/21/23 08:43 Glucose (UA)(Auto) 0 mg/dL 06/21/23 08:43 Urine Ketones (Auto) Negative 06/21/23 08:43 Urine Blood (Auto) 0 Enoc/uL 06/21/23 08:43 Urine Nitrite (Auto) Negative 06/21/23 08:43 Urine Bilirubin (Auto) 1 mg/dL 06/21/23 08:43 Urine Urobilinogen (Auto) 0.2 mg/dL 06/21/23 08:43 Leukocyte Esterase (Auto) 0 Marcel/uL 06/21/23 08:43 Assessment & Plan Assessment & Plan (1) Nocturia more than twice per night: Code(s): R35.1 - Nocturia (2) BPH w urinary obs/LUTS: Code(s): N40.1 - Benign prostatic hyperplasia with lower urinary tract symptoms; N13.8 - Other obstructive and reflux uropathy Plan Twelve month follow-up PVR and PSA Orders: Orders AMB Post Void Residual by ultrasound Today N13.8 - Other obstructive and reflux uropathy, N40.1 - Benign prostatic hyperplasia with lower urinary tract symptoms Prostate Specific Antigen 364 Days N13.8 - Other obstructive and reflux uropathy, N40.1 - Benign prostatic hyperplasia with lower urinary tract symptoms AMB Urinalysis Automated Today Z13.9 - Encounter for screening, unspecified Patient Instructions: Imaging studies, laboratory and physical exam results were discussed and reviewed in detail. No major barriers to patient understanding were identified. An opportunity to ask questions regarding the treatment plan was provided. All questions were answered. The patient expressed understanding and agreement with the above treatment plan. The patient is aware they should contact our office by phone for worsening of their current condition or the appearance of new urologic symptoms. Compliance is encouraged with any medications and followup testing that is ordered. It is a privilege to participate in the urologic care of your patient. If you have any questions or concerns regarding treatment for the above conditions, or other urologic issues, please do not hesitate to contact me. The office telephone contact is [phone]. This note is constructed using voice recognition software. While every effort has been made to ensure accuracy patient financial advocate errors may have been included. Yours sincerely, Dr Michael Quintanilla MD, [facility] - Urology Providers of Expert, Compassionate Care for the Genitourinary System Coding Level of Care Code Est Pt Level 4 (78156) Diagnoses Nocturia more than twice per night R35.1 BPH w urinary obs/LUTS N40.1; N13.8 CPT Codes Post Residual Void - PVR CPT Code: 42384-Ehht Void Residual by ultrasound ([id number])
== END 2023-06-21 09:05 | disposition home or self-care (01) ==
PROVIDERS: PCP Internal Medicine; Visit Provider Urology
DX: N40.1 Benign prostatic hyperplasia with lower urinary tract symptoms (principal); R35.1 Nocturia; N13.8 Other obstructive and reflux uropathy; Z13.9 Encounter for screening, unspecified
CPT/HCPCS: 99214

== ENCOUNTER → 2023-06-21 08:31 | Outpatient (BNVA) | payer OTHER, SELFPAY | PROVIDERS: Visit Provider Urology | DX: N40.1 Benign prostatic hyperplasia with lower urinary tract symptoms (principal); N13.8 Other obstructive and reflux uropathy; R35.1 Nocturia | CPT/HCPCS: 51798; 81003; 99212 ==

== ENCOUNTER 2023-06-24 08:14 | Outpatient (AMB) | payer OTHER, SELFPAY ==
[2023-06-24 08:38] VITALS: BP 134/64; PULSE 77; BMI 28.6
--- NOTE | 2023-06-24 08:38 | MHC.PC.OV ---
Vital Signs 06/24/23 08:38 Height 5 ft 9 in Weight 194 lb BMI 28.6 BP 134/64 Blood Pressure Location Lt brachial Position Sitting Pulse 77 Pulse Source Pulse Oximeter Oxygen Delivery Method Room Air Intake Visit Reasons: 6mth f/u DM Allergies lisinopril [LISINOPRIL] Allergy (Severe, Verified 06/24/23 08:38) ANGIOEDEMA, hives Medication List - Last Reconciled 06/24/23 by Aguila Gtz MD amlodipine 5 mg PO DAILY aspirin (Adult Low Dose Aspirin) 81 mg PO DAILY blood sugar diagnostic (FreeStyle Lite Strips) TO CHECK BLOOD SUGARS TWICE A DAY finasteride 5 mg PO DAILY 90 days glipizide ER 5 mg PO DAILY hydrochlorothiazide 12.5 mg PO DAILY lancets FREESTYLE 28G- TO CHECK BLOOD SUGARS TWICE A DAY levothyroxine 50 mcg PO DAILY meclizine 25 mg PO DAILY metformin 500 mg PO BID omeprazole 20 mg PO DAILY ondansetron HCl 4 mg PO Q8H PRN pravastatin 80 mg PO DAILY terazosin 5 mg PO BEDTIME 90 days Tobacco use date assessed: 01/13/23 Dental Screening Dental Screen Date: 06/24/23 Did you have a dental visit in the last 12 months?: Yes Did you have a dental problem in the last 6 months where you did not have access to dental care?: No Was dental information given to patient?: Patient has dentist HPI 6mth f/u DM HPI Details HTN DM and BPH; doing well on rx; compliant [facility] Medical History Diabetes mellitus with coincident hypertension Hypertension Hypothyroidism Diabetes Surgical History History of umbilical hernia repair History of cholecystectomy Family History Father No problems noted. Mother No problems noted. Son Substance use disorder Other Mental health disorder Social History Housing: House Alcohol intake: current Alcohol intake frequency: holidays/special occasions only Patient Tobacco Use Status: Former Tobacco user Tobacco use type: Cigarette e-Cigarette/Vaping Use: Never Used Second Hand Smoke Exposure: No service: Yes Current occupational status: retired Current occupation: rt hand Cognitive needs: No Hearing needs: No Vision needs: Yes Questionnaire PHQ-9 Over the last 2 weeks, how often have you been bothered by any of the following problems? 1. Little interest or pleasure in doing things: not at all 2. Feeling down, depressed, or hopeless: not at all 3. Trouble falling or staying asleep, or sleeping too much: not at all 4. Feeling tired or having little energy: not at all 5. Poor appetite or overeating: not at all 6. Feeling bad about yourself - or that you are a failure or have let yourself or your family down: not at all 7. Trouble concentrating on things, such as reading the newspaper or watching television: not at all 8. Moving or speaking so slowly that other people could have noticed. Or the opposite - being so fidgety or restless that you have been moving around a lot more than usual: not at all 9. Thoughts that you would be better off or of hurting yourself in some way: not at all Total score: 0 Depression Screening Interpretation: Negative Depression Screening Done: Yes [id number] - PHQ-9 Billing: Yes Source: Developed by Drs. Laureano Dean, Gale Chandler, Baltazar Delaney and colleagues, with an educational alva from [employer]. Thrive Questionnaire Date Thrive assessed: 01/13/23 AUDIT C Alcohol Use Questionnaire (AUDIT-C) 1. How often do you have a drink containing alcohol?: Monthly or less 2. How many drinks containing alcohol do you have on a typical day when you are drinking?: 1 or 2 Total Score: 1 Score Reviewed/Action Taken: Yes ARYA-7 AMB Questionnaire ARYA-7 Date ARYA - 7 assessed: 01/13/23 Source: Developed by Drs. Laureano Dean, Gale Chandler, Baltazar Delaney and colleagues, with an educational alva from [employer]. Review of Systems Const Denies chills, Denies headache(s) and Denies weight loss ENT Denies headache(s) Card Denies chest pain, Denies syncope, Denies irregular heart rhythm and Denies dyspnea Resp Denies chest congestion, Denies cough and Denies dyspnea GI Denies abdominal pain, Denies change in stool character, Denies nausea and Denies vomiting Musc Denies deformity and Denies joint swelling Neuro Denies syncope and Denies headache(s) Physical exam (Primary Care) Vital Signs: Last Vital Signs Pulse 77 06/24/23 08:38 BP 134/64 06/24/23 08:38 Oxygen Delivery Method Room Air 06/24/23 08:38 BMI result Body Mass Index 28.6 Tobacco/Smoking Status: Tobacco use Status Tobacco use date assessed 01/13/23 06/24/23 08:41 Patient Tobacco Use Status Former Tobacco user 06/24/23 08:41 Tobacco use type Cigarette 06/24/23 08:41 e-Cigarette/Vaping Use Never Used 06/24/23 08:41 PHQ-9: PHQ-9 Score PHQ-9: Total score 0 06/24/23 08:41 Depression Screening Interpretation: Negative Thrive Assessment: Date of Thrive Assessment Date Thrive assessed 01/13/23 06/24/23 08:41 Const General: cooperative, comfortable, no acute distress and alert Neck Neck: Yes no lymphadenopathy Thyroid: Thyroid normal Resp Effort & Inspection: normal respiratory effort Auscultation: clear to auscultation bilaterally Percussion: percussion normal Cardio Jugular venous distension: no JVD Palpation: normal PMI Rate: regular rate Rhythm: regular rhythm Heart sounds: S1 normal heart sound present and S2 normal heart sound present GI Inspection: Yes normal to inspection Palpation (GI): No hepatosplenomegaly present Skin General skin exam: no rashes or lesions noted Extrem General: Yes no clubbing, cyanosis or edema Assessment and Plan Assessment & Plan (1) Diabetes mellitus with coincident hypertension: Code(s): E11.9 - Type 2 diabetes mellitus without complications; I10 - Essential (primary) hypertension Plan: stable; same rx (2) Hypertension: Code(s): I10 - Essential (primary) hypertension Plan: stable; same rx (3) BPH w urinary obs/LUTS: Code(s): N40.1 - Benign prostatic hyperplasia with lower urinary tract symptoms; N13.8 - Other obstructive and reflux uropathy Plan stable; same rx Orders: Orders Complete Blood Count Auto Diff Today D64.9 - Anemia, unspecified Comprehensive [place]. Panel Fast Today N28.9 - Disorder of kidney and ureter, unspecified Thyroid Stimulating Hormone Today E03.9 - Hypothyroidism, unspecified Lipid Panel Today E78.5 - Hyperlipidemia, unspecified Hemoglobin A1c Today R73.9 - Hyperglycemia, unspecified Microalbumin, Random (w Creat) Today E11.69 - Type 2 diabetes mellitus with other specified complication, E66.01 - Morbid (severe) obesity due to excess calories Coding Level of Care Code Est Pt Level 4 (10842) Diagnoses Diabetes mellitus with coincident hypertension E11.9; I10 Hypertension I10 BPH w urinary obs/LUTS N40.1; N13.8
== END 2023-06-24 08:52 | disposition home or self-care (01) ==
PROVIDERS: PCP Internal Medicine; Visit Provider Internal Medicine
DX: E11.9 Type 2 diabetes mellitus without complications (principal); I10 Essential (primary) hypertension; N40.1 Benign prostatic hyperplasia with lower urinary tract symptoms; N13.8 Other obstructive and reflux uropathy
CPT/HCPCS: 99214

== ENCOUNTER 2023-12-21 08:02 | Outpatient (REF) | payer OTHER, SELFPAY ==
[2023-12-21 10:36] LABS: MANUAL DIFF FLAG NO
[2023-12-21 10:43] LABS: Basophils Percent Auto 0.7 % (0-2); Eosinophils Absolute Auto 0.1 X10*3/uL (0.0-0.4); Eosinophils Percent Auto 3.1 % (0-4); Hematocrit 40.1 % (42.0-52.0); Hemoglobin 13.6 g/dl (14.0-18.0); Imm Gran Abs Auto 0.01 X10*3/uL (0.00-0.03); Imm Gran Pct Auto 0.2 % (0.0-0.4); Lymphocytes Absolute Auto 1.1 X10*3/uL (1.2-4.9); Lymphocytes Percent Auto 26.3 % (20-40); Mean Corpuscular HGB Conc 33.9 g/dl (31.0-36.0); Mean Corpuscular Hemoglobin 30.5 pg (27.0-33.0); Mean Corpuscular Volume 89.9 fL (80.0-98.0); Monocytes Absolute Auto 0.4 X10*3/uL (0.1-1.2); Monocytes Percent Auto 9.6 % (2-11); Neutrophils Absolute Auto 2.5 x10*3/uL (2.0-8.3); Neutrophils Percent Auto 60.1 % (45-73); Platelet Count 153 X10*3/uL (160-400); Red Blood Count 4.46 X10*6/uL (4.60-5.80); Red Cell Distribution Width 13.5 % (11.0-16.0); White Blood Count 4.2 X10*3/uL (4.8-10.8)
[2023-12-21 11:04] LABS: Alanine Aminotransferase 28 U/L (0-40); Albumin Level 4.2 g/dL (3.5-5.0); Alkaline Phosphatase 88 U/L (39-117); Anion Gap 12 (12-20); Aspartate Amino Transferase 23 U/L (5-37); Bilirubin Total 0.4 mg/dL (0.0-1.0); Blood Urea Nitrogen 17 mg/dL (9-16); Calcium 9.4 mg/dL (8.4-10.2); Carbon Dioxide 25 mmol/L (22-29); Chloride 107 mmol/L (96-108); Cholesterol 157 mg/dL (<200); Estimated Glomerular Filt Rate > 60; Glucose Fasting 137 mg/dL (60-99); HDL Cholesterol 49 mg/dL (>40); LDL Cholesterol Calculated 88 mg/dL (<100); Potassium 3.1 mmol/L (3.3-5.1); Sodium 141 mmol/L (135-145); Triglycerides 104 mg/dL (<150)
[2023-12-21 11:21] LABS: Estimated Average Glucose 137 mg/dL; Hemoglobin A1c % 6.4 % (<6.0)
[2023-12-21 11:31] LABS: Creatinine Urine 90.55 mg/dL; Microalbum/Creatinine Ratio Ur 15.4 ug/mg cr (<30)
== END 2023-12-21 08:03 | disposition home or self-care (01) ==
LOC: HO.10HDL 08:02
PROVIDERS: Visit Provider Internal Medicine
DX: E03.9 Hypothyroidism, unspecified (principal); E11.69 Type 2 diabetes mellitus with other specified complication; E11.65 Type 2 diabetes mellitus with hyperglycemia; E66.01 Morbid (severe) obesity due to excess calories; E78.5 Hyperlipidemia, unspecified; D64.9 Anemia, unspecified; N28.9 Disorder of kidney and ureter, unspecified
CPT/HCPCS: 36415; 80053; 80061; 82043; 82570; 83036; 84443; 85025

== ENCOUNTER 2023-12-28 08:11 | Outpatient (AMB) | payer OTHER, SELFPAY ==
--- NOTE | 2023-12-28 08:19 | A.OFFPC_ITS ---
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: No Accompanied by: Self / Same As Patient Allergies lisinopril [LISINOPRIL] Allergy (Severe, Verified 12/28/23 08:21) ANGIOEDEMA, hives Medication List - Last Reconciled 12/28/23 by Aguila Gtz MD amlodipine 5 mg PO DAILY aspirin (Adult Low Dose Aspirin) 81 mg PO DAILY blood sugar diagnostic (FreeStyle Lite Strips) TO CHECK BLOOD SUGARS TWICE A DAY finasteride 5 mg PO DAILY 90 days glipizide ER 5 mg PO DAILY hydrochlorothiazide 12.5 mg PO DAILY lancets FREESTYLE 28G- TO CHECK BLOOD SUGARS TWICE A DAY levothyroxine 50 mcg PO DAILY meclizine 25 mg PO DAILY metformin 500 mg PO BID omeprazole 20 mg PO DAILY ondansetron HCl 4 mg PO Q8H PRN pravastatin 80 mg PO DAILY terazosin 5 mg PO BEDTIME 90 days Tobacco use date assessed: 12/28/23 Fall risk assessment: No Falls in past year Last assessed Fall Risk: 12/28/23 Dental Screening Dental Screen Date: 12/28/23 Did you have a dental visit in the last 12 months?: Yes Did you have a dental problem in the last 6 months where you did not have access to dental care?: No Was dental information given to patient?: Patient has dentist HPI DM HPI Details HTN DM and BPH; stable on rx; BS spikes to 180 and some lows in the 60s; may benefit from CGM [facility] Medical History Diabetes mellitus with coincident hypertension Hypertension Hypothyroidism Diabetes Surgical History History of umbilical hernia repair History of cholecystectomy Family History Father No problems noted. Mother No problems noted. Son Substance use disorder Other Mental health disorder Social History Housing: House Alcohol intake: current Alcohol intake frequency: holidays/special occasions only Patient Tobacco Use Status: Former Tobacco user Tobacco use type: Cigarette e-Cigarette/Vaping Use: Never Used Second Hand Smoke Exposure: No service: Yes Current occupational status: retired Current occupation: rt hand Cognitive needs: No Hearing needs: No Vision needs: Yes Questionnaire PHQ-9 Over the last 2 weeks, how often have you been bothered by any of the following problems? 1. Little interest or pleasure in doing things: not at all 2. Feeling down, depressed, or hopeless: not at all 3. Trouble falling or staying asleep, or sleeping too much: not at all 4. Feeling tired or having little energy: not at all 5. Poor appetite or overeating: not at all 6. Feeling bad about yourself - or that you are a failure or have let yourself or your family down: not at all 7. Trouble concentrating on things, such as reading the newspaper or watching television: not at all 8. Moving or speaking so slowly that other people could have noticed. Or the opposite - being so fidgety or restless that you have been moving around a lot more than usual: not at all 9. Thoughts that you would be better off or of hurting yourself in some way: not at all Total score: 0 Source: Developed by Drs. Laureano Dean, Gale Chandler, Baltazar Delaney and colleagues, with an educational alva from [employer]. Thrive Questionnaire Date Thrive assessed: 12/28/23 I am a: Patient What is your living situation today?: I have a steady place to live Within the past 12 months, did the food you bought not last and you didn't have the money to get more?: Never true Within the past 12 months, did you worry whether your food would run out before you got money to buy more?: Never true Do you have trouble paying for medicines?: No Do you have trouble getting transportation to medical appointments?: No Do you have trouble paying your heating and electricity bill?: No Do you have trouble taking care of your child, family member or friend?: No Do you have trouble with day-to-day activities such as bathing, preparing meals, shopping, managing finances, etc.?: No Are you currently unemployed and looking for a job?: No Are you interested in more education?: No Please select the resources that you would like help with: None Currently or been in a relationship where the following occur: no concerns reported THRIVE Score: 0 AUDIT C Alcohol Use Questionnaire (AUDIT-C) 1. How often do you have a drink containing alcohol?: Monthly or less 2. How many drinks containing alcohol do you have on a typical day when you are drinking?: 1 or 2 3. How often do you have six or more drinks on one occasion?: Never Total Score: 1 ARYA-7 AMB Questionnaire ARYA-7 Date ARYA - 7 assessed: 12/28/23 Feeling nervous, anxious, or on edge: 0 = Not at all Not being able to stop or control worryin = Not at all Worrying too much about different things: 0 = Not at all Trouble relaxin = Not at all Being so restless that it is hard to sit still: 0 = Not at all Becoming easily annoyed or irritable: 0 = Not at all Feeling afraid as if something awful might happen: 0 = Not at all Total ARYA-7 score (0-4 normal; 5-9 mild; 10-14 moderate; 15-21 severe): 0 Source: Developed by Drs. Laureano Dean, Gale Chandler, Baltazar Delaney and colleagues, with an educational alva from [employer]. Review of Systems Const Denies chills, Denies headache(s) and Denies weight loss ENT Denies headache(s) Card Denies chest pain, Denies syncope, Denies irregular heart rhythm and Denies dyspnea Resp Denies chest congestion, Denies cough and Denies dyspnea GI Denies abdominal pain, Denies change in stool character, Denies nausea and Denies vomiting Musc Denies deformity and Denies joint swelling Neuro Denies syncope and Denies headache(s) Physical exam (Primary Care) Vital Signs: Last Vital Signs Pulse 83 12/28/23 08:20 BP 118/64 12/28/23 08:20 Pulse Ox 97 12/28/23 08:20 Oxygen Delivery Method Room Air 12/28/23 08:20 BMI result Body Mass Index 28.6 Tobacco/Smoking Status: Tobacco use Status Tobacco use date assessed 12/28/23 12/28/23 08:26 Patient Tobacco Use Status Former Tobacco user 12/28/23 08:26 Tobacco use type Cigarette 12/28/23 08:26 e-Cigarette/Vaping Use Never Used 12/28/23 08:26 PHQ-9: PHQ-9 Score PHQ-9: Total score 0 12/28/23 08:26 Thrive Assessment: Date of Thrive Assessment Date Thrive assessed 12/28/23 12/28/23 08:26 Currently or been in a relationship where the following occur: no concerns reported Const General: cooperative, comfortable, no acute distress and alert Neck Neck: Yes no lymphadenopathy Thyroid: Thyroid normal Resp Effort & Inspection: normal respiratory effort Auscultation: clear to auscultation bilaterally Percussion: percussion normal Cardio Jugular venous distension: no JVD Palpation: normal PMI Rate: regular rate Rhythm: regular rhythm Heart sounds: S1 normal heart sound present and S2 normal heart sound present GI Inspection: Yes normal to inspection Palpation (GI): No hepatosplenomegaly present Skin General skin exam: no rashes or lesions noted Extrem General: Yes no clubbing, cyanosis or edema Assessment and Plan Assessment & Plan (1) Diabetes mellitus with coincident hypertension: Code(s): E11.9 - Type 2 diabetes mellitus without complications; I10 - Essential (primary) hypertension Plan: stable; same rx; consider CGM (2) Hypertension: Code(s): I10 - Essential (primary) hypertension Plan: stable; same rx (3) BPH w urinary obs/LUTS: Code(s): N40.1 - Benign prostatic hyperplasia with lower urinary tract symptoms; N13.8 - Other obstructive and reflux uropathy Plan: stable; same rx Orders: Orders Lipid Panel Today Z13.220 - Encounter for screening for lipoid disorders Glucose Fasting Today R73.9 - Hyperglycemia, unspecified Hemoglobin A1c Today R73.9 - Hyperglycemia, unspecified Coding Level of Care Code Est Pt Level 4 (10933) Diagnoses Diabetes mellitus with coincident hypertension E11.9; I10 Hypertension I10 BPH w urinary obs/LUTS N40.1; N13.8
[2023-12-28 08:20] VITALS: BP 118/64; PULSE 83; O2SAT 97; BMI 28.6
== END 2023-12-28 08:55 | disposition home or self-care (01) ==
PROVIDERS: PCP Internal Medicine; Visit Provider Internal Medicine
DX: E11.9 Type 2 diabetes mellitus without complications (principal); I10 Essential (primary) hypertension; N40.1 Benign prostatic hyperplasia with lower urinary tract symptoms; N13.8 Other obstructive and reflux uropathy
CPT/HCPCS: 99214

== ENCOUNTER 2024-06-18 08:03 | Outpatient (REF) | payer OTHER, SELFPAY ==
[2024-06-18 09:23] LABS: Estimated Average Glucose 128 mg/dL; Hemoglobin A1C 144.3064 umol/L; Hemoglobin A1c % 6.1 % (<6.0)
[2024-06-18 09:49] LABS: Cholesterol 163 mg/dL (<200); Glucose Fasting 118 mg/dL (60-99); HDL Cholesterol 50 mg/dL (>40); LDL Cholesterol Calculated 95 mg/dL (<100); Triglycerides 94 mg/dL (<150)
[2024-06-18 10:08] LABS: Prostate Specific Antigen 0.89 ng/mL (<0.05-4.0)
== END 2024-06-18 08:04 | disposition home or self-care (01) ==
LOC: HO.LAB 08:03
PROVIDERS: Absent Provider Urology; PCP Internal Medicine; Visit Provider Internal Medicine
DX: R73.9 Hyperglycemia, unspecified (principal); N40.1 Benign prostatic hyperplasia with lower urinary tract symptoms; N13.8 Other obstructive and reflux uropathy; Z13.220 Encounter for screening for lipoid disorders; Z12.5 Encounter for screening for malignant neoplasm of prostate
CPT/HCPCS: 36415; 80061; 82947; 83036; 84153

== ENCOUNTER 2024-06-21 08:22 | Outpatient (AMB) | payer MEDICARE, OTHER, SELFPAY ==
--- NOTE | 2024-06-21 08:37 | A.OFFVIS_ITS ---
Intake Visit Reasons: 1Y Follow Up-PSA/PVR(set) Intake Note: Patient is Present for 1y Follow Up PV/PSA Urology Medication: Finasteride, Terazosin Antibiotic Allergies:None Blood Thinners: Aspirin PVR: 0ml TODAY'S PVR:0ML'S Tattoo Identifier Required: No Allergies lisinopril [LISINOPRIL] Allergy (Severe, Verified 06/21/24 08:39) ANGIOEDEMA, hives HPI Comments Details: Valdemar is a pleasant male. He is a patient of Dr. Ward. He is seen for the following urologic conditions. - lower urinary tract symptoms Yearly appointment Has remained on combination therapy Finasteride back to Tuesday, Tuesday, Tuesday Lower urinary tract symptoms Current visit is for - further evaluation of lower urinary tract symptoms Current treatment includes - terazosin 5 mg, finasteride Prior treatments include - tamsulosin Prostate Symptom Score - mild, bother 2 Symptoms include - weak stream, incomplete emptying and had been improving Results from testing include - Renal/bladder us Yes Date August 2020 PVR 10 Prostate Size 40 Prior Prostate Score mild PSA 09/07 1.3, 05/10 0.8, 06/11 0.8, 06/12 0.9 Prostate volume 30 Testing at next visit will include - PVR Treatment plan continue with medications. Prescriptions provided [facility] Medical History Diabetes mellitus with coincident hypertension Hypertension Hypothyroidism Diabetes Surgical History History of umbilical hernia repair History of cholecystectomy Family History Father No problems noted. Mother No problems noted. Son Substance use disorder Other Mental health disorder Social History Housing: House Alcohol intake: current Alcohol intake frequency: holidays/special occasions only Patient Tobacco Use Status: Former Tobacco user Tobacco use type: Cigarette e-Cigarette/Vaping Use: Never Used Second Hand Smoke Exposure: No service: Yes Current occupational status: retired Current occupation: rt hand Cognitive needs: No Hearing needs: No Vision needs: Yes Review of Systems Const Denies chills and Denies fever(s) Card Reports no additional complaints and Denies syncope Resp Denies cough GI Denies abdominal pain and Denies heartburn Reports as per HPI and Denies change in libido Neuro Denies syncope Psych Denies change in libido Endo Denies change in libido Physical Exam Const General: cooperative, healthy appearing, comfortable and no acute distress Orientation/consciousness: patient oriented x3 HEENT Face and sinus: Yes normal facial exam Mouth: moist mucous membranes Neck Neck: Yes normal visual inspection, Yes full ROM and Yes trachea midline Chest Chest palpation & inspection: normal inspection of the chest Resp Effort & Inspection: normal respiratory effort, able to speak in complete sentences and no respiratory distress GI Inspection: Yes normal to inspection Back/Spine/Pelvis Cervical Spine: normal cervical lordosis Thoracic/Lumbar Spine: thoracic and lumbar spine normal to inspection Skin General skin exam: no rashes or lesions noted Neuro General: patient oriented x3, gait normal, tone normal and moves all extremities Extrem General: Yes normal to inspection and Yes capillary refill normal Office Procedures Post Void Residual Post Residual Void Post Void Residual (PVR): 0 [id number] Void Residual by ultrasound Results AMB Urinalysis, Automated UA Leukoctes 0 Marcel/uL Last Edit by NICOLETTE Lundberg on 06/21/24 08:48 UA Nitrite Negative Last Edit by NICOLETTE Lundberg on 06/21/24 08:48 UA Urobilinogen 0.2 mg/dL Last Edit by NICOLETTE Lundberg on 06/21/24 08:4 8 UA Protein 15 mg/dL Last Edit by NICOLETTE Lundberg on 06/21/24 08:48 UA pH 5.5 Last Edit by NICOLETTE Lundberg on 06/21/24 08:48 UA Blood 0 Enoc/uL Last Edit by NICOLETTE Lundberg on 06/21/24 08:48 UA Specific [place] 1.015 Last Edit by NICOLETTE Lundberg on 06/21/24 08: 48 UA Ketone Negative Last Edit by NICOLETTE Lundberg on 06/21/24 08:48 UA Bilirubin 1 mg/dL Last Edit by NICOLETTE Lundberg on 06/21/24 08:48 UA Glucose 0 mg/dL Last Edit by NICOLETTE Lundberg on 06/21/24 08:48 Results Reviewed Results Reviewed: Laboratory Last Values Urine pH (Auto) 5.5 06/21/24 08:46 Specific [place] (Auto) 1.015 06/21/24 08:46 Urine Protein (Auto) 15 mg/dL 06/21/24 08:46 Glucose (UA)(Auto) 0 mg/dL 06/21/24 08:46 Urine Ketones (Auto) Negative 06/21/24 08:46 Urine Blood (Auto) 0 Enoc/uL 06/21/24 08:46 Urine Nitrite (Auto) Negative 06/21/24 08:46 Urine Bilirubin (Auto) 1 mg/dL 06/21/24 08:46 Urine Urobilinogen (Auto) 0.2 mg/dL 06/21/24 08:46 Leukocyte Esterase (Auto) 0 Marcel/uL 06/21/24 08:46 Assessment & Plan Assessment & Plan (1) Nocturia more than twice per night: Code(s): R35.1 - Nocturia Category: Medical (2) BPH w urinary obs/LUTS: Code(s): N40.1 - Benign prostatic hyperplasia with lower urinary tract symptoms; N13.8 - Other obstructive and reflux uropathy Category: Medical Plan Yearly follow-up Orders: Orders AMB Urinalysis Automated Today Z13.9 - Encounter for screening, unspecified Patient Instructions: Imaging studies, laboratory and physical exam results were discussed and reviewed in detail. No major barriers to patient understanding were identified. An opportunity to ask questions regarding the treatment plan was provided. All questions were answered. The patient expressed understanding and agreement with the above treatment plan. The patient is aware they should contact our office by phone for worsening of their current condition or the appearance of new urologic symptoms. Compliance is encouraged with any medications and followup testing that is ordered. It is a privilege to participate in the urologic care of your patient. If you have any questions or concerns regarding treatment for the above conditions, or other urologic issues, please do not hesitate to contact me. The office telephone contact is [phone]. This note is constructed using voice recognition software. While every effort has been made to ensure accuracy engineering professionals errors may have been included. Yours sincerely, Dr Michael Quintanilla MD, [facility] - Urology Providers of Expert, Compassionate Care for the Genitourinary System Coding Level of Care Code Est Pt Level 4 (98684) Diagnoses Nocturia more than twice per night R35.1 BPH w urinary obs/LUTS N40.1; N13.8 CPT Codes Post Residual Void - PVR CPT Code: 43808-Sfhr Void Residual by ultrasound ([id number])
== END 2024-06-21 09:11 | disposition home or self-care (01) ==
PROVIDERS: PCP Internal Medicine; Visit Provider Urology
DX: N40.1 Benign prostatic hyperplasia with lower urinary tract symptoms (principal); R35.1 Nocturia; N13.8 Other obstructive and reflux uropathy; Z13.9 Encounter for screening, unspecified
CPT/HCPCS: 99214

== ENCOUNTER → 2024-06-21 08:22 | Outpatient (BNVA) | payer OTHER, SELFPAY | PROVIDERS: PCP Internal Medicine; Visit Provider Urology | DX: N40.1 Benign prostatic hyperplasia with lower urinary tract symptoms (principal); N13.8 Other obstructive and reflux uropathy; R35.1 Nocturia | CPT/HCPCS: 51798; 81003; 99212 ==

== ENCOUNTER 2024-06-29 08:21 | Outpatient (AMB) | payer MEDICARE, OTHER, SELFPAY ==
[2024-06-29 08:37] VITALS: BP 142/78; PULSE 76; O2SAT 97; BMI 28.6
--- NOTE | 2024-06-29 08:37 | MHC.PC.OV ---
Vital Signs 06/29/24 08:37 Height 5 ft 9 in Weight 194 lb BMI 28.6 BP 142/78 H Blood Pressure Location Lt brachial Position Sitting Pulse 76 Pulse Source Pulse Oximeter Pulse Oximetry (%) 97 Oxygen Delivery Method Room Air Intake Visit Reasons: 6mth f/u-see comm Recruitment Director Required: No Accompanied by: Self / Same As Patient Allergies lisinopril [LISINOPRIL] Allergy (Severe, Verified 06/29/24 08:38) ANGIOEDEMA, hives Medication List - Last Reconciled 06/29/24 by Aguila Gtz MD amlodipine 5 mg PO DAILY aspirin (Adult Low Dose Aspirin) 81 mg PO DAILY blood sugar diagnostic (FreeStyle Lite Strips) TO CHECK BLOOD SUGARS TWICE A DAY finasteride 5 mg PO DAILY 90 days glipizide ER 5 mg PO DAILY hydrochlorothiazide 12.5 mg PO DAILY lancets FREESTYLE 28G- TO CHECK BLOOD SUGARS TWICE A DAY levothyroxine 50 mcg PO DAILY meclizine 25 mg PO DAILY metformin 500 mg PO BID omeprazole 20 mg PO DAILY ondansetron HCl 4 mg PO Q8H PRN pravastatin 80 mg PO DAILY scopolamine base 1 patch transdermal Q3D PRN terazosin 5 mg PO BEDTIME 90 days Tobacco use date assessed: 12/28/23 Fall risk assessment: No Falls in past year Last assessed Fall Risk: 06/29/24 Dental Screening Dental Screen Date: 12/28/23 HPI 6mth f/u-see comm HPI Details HTN DM and hypothyroidism; doing well; compliant [facility], [facility] Medical History Diabetes mellitus with coincident hypertension Hypertension Hypothyroidism Diabetes Surgical History History of umbilical hernia repair History of cholecystectomy Family History Father No problems noted. Mother No problems noted. Son Substance use disorder Other Mental health disorder Social History Housing: House Alcohol intake: current Alcohol intake frequency: holidays/special occasions only Patient Tobacco Use Status: Former Tobacco user Tobacco use type: Cigarette e-Cigarette/Vaping Use: Never Used Second Hand Smoke Exposure: No service: Yes Current occupational status: retired Current occupation: rt hand Cognitive needs: No Hearing needs: No Vision needs: Yes Questionnaire PHQ-9 Over the last 2 weeks, how often have you been bothered by any of the following problems? 1. Little interest or pleasure in doing things: not at all 2. Feeling down, depressed, or hopeless: not at all 3. Trouble falling or staying asleep, or sleeping too much: not at all 4. Feeling tired or having little energy: not at all 5. Poor appetite or overeating: not at all 6. Feeling bad about yourself - or that you are a failure or have let yourself or your family down: not at all 7. Trouble concentrating on things, such as reading the newspaper or watching television: not at all 8. Moving or speaking so slowly that other people could have noticed. Or the opposite - being so fidgety or restless that you have been moving around a lot more than usual: not at all 9. Thoughts that you would be better off or of hurting yourself in some way: not at all Total score: 0 Source: Developed by Drs. Laureano Dean, Gale Chandler, Baltazar Delaney and colleagues, with an educational alva from [email or web address]. Thrive Questionnaire Date Thrive assessed: 12/28/23 Are you currently unemployed and looking for a job?: No AUDIT C Alcohol Use Questionnaire (AUDIT-C) 1. How often do you have a drink containing alcohol?: Monthly or less 2. How many drinks containing alcohol do you have on a typical day when you are drinking?: 1 or 2 3. How often do you have six or more drinks on one occasion?: Never Total Score: 1 ARYA-7 AMB Questionnaire ARYA-7 Date ARYA - 7 assessed: 12/28/23 Source: Developed by Drs. Laureano Dean, Gale Chandler, Baltazar Delaney and colleagues, with an educational alva from [email or web address]. Review of Systems Const Denies chills, Denies headache(s) and Denies weight loss ENT Denies headache(s) Card Denies chest pain, Denies syncope, Denies irregular heart rhythm and Denies dyspnea Resp Denies chest congestion, Denies cough and Denies dyspnea GI Denies abdominal pain, Denies change in stool character, Denies nausea and Denies vomiting Musc Denies deformity and Denies joint swelling Neuro Denies syncope and Denies headache(s) Physical exam (Primary Care) Vital Signs: Last Vital Signs Pulse 76 06/29/24 08:37 BP 142/78 H 06/29/24 08:37 Pulse Ox 97 06/29/24 08:37 Oxygen Delivery Method Room Air 06/29/24 08:37 BMI result Body Mass Index 28.6 Tobacco/Smoking Status: Tobacco use Status Tobacco use date assessed 12/28/23 06/29/24 08:38 Patient Tobacco Use Status Former Tobacco user 06/29/24 08:38 Tobacco use type Cigarette 06/29/24 08:38 e-Cigarette/Vaping Use Never Used 06/29/24 08:38 PHQ-9: PHQ-9 Score PHQ-9: Total score 0 06/29/24 08:40 Thrive Assessment: Date of Thrive Assessment Date Thrive assessed 12/28/23 06/29/24 08:38 Const General: cooperative, comfortable, no acute distress and alert Neck Neck: Yes no lymphadenopathy Thyroid: Thyroid normal Resp Effort & Inspection: normal respiratory effort Auscultation: clear to auscultation bilaterally Percussion: percussion normal Cardio Jugular venous distension: no JVD Palpation: normal PMI Rate: regular rate Rhythm: regular rhythm Heart sounds: S1 normal heart sound present and S2 normal heart sound present GI Inspection: Yes normal to inspection Palpation (GI): No hepatosplenomegaly present Skin General skin exam: no rashes or lesions noted Extrem General: Yes no clubbing, cyanosis or edema Coding Level of Care Code Est Pt Level 4 (65732) Diagnoses Diabetes mellitus with coincident hypertension E11.9; I10 Hypertension I10 Hypothyroidism E03.9 Assessment & Plan Assessment & Plan (1) Diabetes mellitus with coincident hypertension: Code(s): E11.9 - Type 2 diabetes mellitus without complications; I10 - Essential (primary) hypertension Category: Medical Plan: stable; same rx (2) Hypertension: Code(s): I10 - Essential (primary) hypertension Category: Medical Plan: BP fine at home; stable; same rx (3) Hypothyroidism: Code(s): E03.9 - Hypothyroidism, unspecified Category: Medical Plan: stable; same rx Orders: Orders Glucose Fasting Today R73.9 - Hyperglycemia, unspecified Hemoglobin A1c Today R73.9 - Hyperglycemia, unspecified Thyroid Stimulating Hormone Today Z13.29 - Encounter for screening for other suspected endocrine disorder
== END 2024-06-29 08:55 | disposition home or self-care (01) ==
PROVIDERS: PCP Internal Medicine; Visit Provider Internal Medicine
DX: E11.9 Type 2 diabetes mellitus without complications (principal); I10 Essential (primary) hypertension; E03.9 Hypothyroidism, unspecified

== ENCOUNTER → 2024-06-29 08:21 | Outpatient (BNVA) | payer MEDICARE, OTHER, SELFPAY | PROVIDERS: PCP Internal Medicine; Visit Provider Internal Medicine | DX: E11.9 Type 2 diabetes mellitus without complications (principal); E03.9 Hypothyroidism, unspecified; I10 Essential (primary) hypertension | CPT/HCPCS: 96127; 99212 ==

== ENCOUNTER 2024-11-19 08:22 | Outpatient (REF) | payer MEDICARE, OTHER, SELFPAY ==
[2024-11-19 10:47] LABS: Estimated Average Glucose 131 mg/dL; Hemoglobin A1C 156.5658 umol/L; Hemoglobin A1c % 6.2 % (<6.0); Total Hemoglobin (HGBA1C) 3535.1015 umol/L
[2024-11-19 10:58] LABS: Glucose Fasting 120 mg/dL (60-99)
[2024-11-19 11:19] LABS: Thyroid Stimulating Hormone 3.55 uIU/mL (0.32-4.0)
== END 2024-11-19 08:23 | disposition home or self-care (01) ==
LOC: HO.10HDL 08:22
PROVIDERS: Visit Provider Internal Medicine
DX: R73.9 Hyperglycemia, unspecified (principal); Z13.29 Encounter for screening for other suspected endocrine disorder
CPT/HCPCS: 36415; 82947; 83036; 84443

== ENCOUNTER 2024-11-26 08:25 | Outpatient (AMB) | payer MEDICARE, OTHER, SELFPAY ==
--- NOTE | 2024-11-26 08:33 | MHC.PC.OV ---
Vital Signs 11/26/24 08:35 Height 5 ft 9 in Weight 186 lb 4 oz BMI 27.5 BP 132/72 Blood Pressure Location Lt brachial Position Sitting Pulse 97 Pulse Source Pulse Oximeter Temp 97.5 F Temp Source Temporal Artery Scan Pulse Oximetry (%) 97 Oxygen Delivery Method Room Air Intake Visit Reasons: 5mth f/u Intake Note: Patient is here to follow up on DM, HTN, Hypothyroidism. 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 Turner: Not Required per policy Accompanied by: Self / Same As Patient Allergies lisinopril [LISINOPRIL] Allergy (Severe, Verified 11/26/24 08:35) ANGIOEDEMA, hives Medication List - Last Reconciled 11/26/24 by Aguila Gtz MD amlodipine 5 mg PO DAILY aspirin (Adult Low Dose Aspirin) 81 mg PO DAILY blood sugar diagnostic (FreeStyle Lite Strips) TO CHECK BLOOD SUGARS TWICE A DAY finasteride 5 mg PO DAILY 90 days glipizide ER 5 mg PO DAILY hydrochlorothiazide 12.5 mg PO DAILY lancets FREESTYLE 28G- TO CHECK BLOOD SUGARS TWICE A DAY levothyroxine 50 mcg PO DAILY meclizine 25 mg PO DAILY metformin 500 mg PO BID omeprazole 20 mg PO DAILY ondansetron HCl 4 mg PO Q8H PRN pravastatin 80 mg PO DAILY scopolamine base 1 patch transdermal Q3D PRN terazosin 5 mg PO BEDTIME 90 days Tobacco use date assessed: 11/26/24 Fall risk assessment: 1 Fall in past year Last assessed Fall Risk: 11/26/24 Dental Screening Dental Screen Date: 11/26/24 Did you have a dental visit in the last 12 months?: Yes Did you have a dental problem in the last 6 months where you did not have access to dental care?: No Was dental information given to patient?: Patient has dentist HPI 5mth f/u HPI Details DM and HTN on rx; doing well; compliant [facility] Medical History Diabetes mellitus with coincident hypertension Hypertension Hypothyroidism Diabetes Surgical History History of umbilical hernia repair History of cholecystectomy Family History Father No problems noted. Mother No problems noted. Son Substance use disorder Other Mental health disorder Social History Housing: House Alcohol intake: current Alcohol intake frequency: holidays/special occasions only Patient Tobacco Use Status: Former Tobacco user Tobacco use type: Cigarette e-Cigarette/Vaping Use: Never Used Second Hand Smoke Exposure: Yes service: Yes Current occupational status: retired Current occupation: rt hand Cognitive needs: No Hearing needs: No Vision needs: Yes Questionnaire PHQ-9 Over the last 2 weeks, how often have you been bothered by any of the following problems? 1. Little interest or pleasure in doing things: not at all 2. Feeling down, depressed, or hopeless: not at all 3. Trouble falling or staying asleep, or sleeping too much: not at all 4. Feeling tired or having little energy: not at all 5. Poor appetite or overeating: not at all 6. Feeling bad about yourself - or that you are a failure or have let yourself or your family down: not at all 7. Trouble concentrating on things, such as reading the newspaper or watching television: not at all 8. Moving or speaking so slowly that other people could have noticed. Or the opposite - being so fidgety or restless that you have been moving around a lot more than usual: not at all 9. Thoughts that you would be better off or of hurting yourself in some way: not at all Total score: 0 Depression Screening Interpretation: Negative Depression Screening Done: Yes Source: Developed by Drs. Laureano Dean, Gale Chandler, Baltazar Delaney and colleagues, with an educational alva from [facility]. Thrive Questionnaire Date Thrive assessed: 11/26/24 I am a: Patient What is your living situation today?: I have a steady place to live Within the past 12 months, did the food you bought not last and you didn't have the money to get more?: Never true Within the past 12 months, did you worry whether your food would run out before you got money to buy more?: Never true Do you have trouble paying for medicines?: No Do you have trouble getting transportation to medical appointments?: No Do you have trouble paying your heating and electricity bill?: No Do you have trouble taking care of your child, family member or friend?: No Do you have trouble with day-to-day activities such as bathing, preparing meals, shopping, managing finances, etc.?: No Are you currently unemployed and looking for a job?: No Are you interested in more education?: No Please select the resources that you would like help with: None Currently or been in a relationship where the following occur: No concerns reported THRIVE Score: 0 AUDIT C Alcohol Use Questionnaire (AUDIT-C) 1. How often do you have a drink containing alcohol?: Never 3. How often do you have six or more drinks on one occasion?: Never Total Score: 0 ARYA-7 AMB Questionnaire ARYA-7 Date ARYA - 7 assessed: 11/26/24 Feeling nervous, anxious, or on edge: 0 = Not at all Not being able to stop or control worryin = Not at all Worrying too much about different things: 0 = Not at all Trouble relaxin = Not at all Being so restless that it is hard to sit still: 0 = Not at all Becoming easily annoyed or irritable: 0 = Not at all Feeling afraid as if something awful might happen: 0 = Not at all Total ARYA-7 score (0-4 normal; 5-9 mild; 10-14 moderate; 15-21 severe): 0 Source: Developed by Drs. Laureano Dean, Gale Chandler, Baltazar Delaney and colleagues, with an educational alva from [facility]. Review of Systems Const Denies chills, Denies headache(s) and Denies weight loss ENT Denies headache(s) Card Denies chest pain, Denies syncope, Denies irregular heart rhythm and Denies dyspnea Resp Denies chest congestion, Denies cough and Denies dyspnea GI Denies abdominal pain, Denies change in stool character, Denies nausea and Denies vomiting Musc Denies deformity and Denies joint swelling Neuro Denies syncope and Denies headache(s) Physical exam (Primary Care) Vital Signs: Last Vital Signs Temp 97.5 F 11/26/24 08:35 Pulse 97 11/26/24 08:35 BP 132/72 11/26/24 08:35 Pulse Ox 97 11/26/24 08:35 Oxygen Delivery Method Room Air 11/26/24 08:35 BMI result Body Mass Index 27.5 Tobacco/Smoking Status: Tobacco use Status Tobacco use date assessed 11/26/24 11/26/24 08:40 Patient Tobacco Use Status Former Tobacco user 11/26/24 08:40 Tobacco use type Cigarette 11/26/24 08:40 e-Cigarette/Vaping Use Never Used 11/26/24 08:40 PHQ-9: PHQ-9 Score PHQ-9: Total score 0 11/26/24 08:40 Depression Screening Interpretation: Negative Thrive Assessment: Date of Thrive Assessment Date Thrive assessed 11/26/24 11/26/24 08:40 Currently or been in a relationship where the following occur: No concerns reported Const General: cooperative, comfortable, no acute distress and alert Neck Neck: Yes no lymphadenopathy Thyroid: Thyroid normal Resp Effort & Inspection: normal respiratory effort Auscultation: clear to auscultation bilaterally Percussion: percussion normal Cardio Jugular venous distension: no JVD Palpation: normal PMI Rate: regular rate Rhythm: regular rhythm Heart sounds: S1 normal heart sound present and S2 normal heart sound present GI Inspection: Yes normal to inspection Palpation (GI): No hepatosplenomegaly present Skin General skin exam: no rashes or lesions noted Extrem General: Yes no clubbing, cyanosis or edema Coding Level of Care Code Est Pt Level 3 (66913) Diagnoses Diabetes E11.9 Hypertension I10 Assessment & Plan Assessment & Plan (1) Diabetes: Code(s): E11.9 - Type 2 diabetes mellitus without complications Category: Medical Plan: stable; same rx (2) Hypertension: Code(s): I10 - Essential (primary) hypertension Category: Medical Plan: stable; same rx
[2024-11-26 08:35] VITALS: BP 132/72; PULSE 97; TEMP 36.4; O2SAT 97; BMI 27.5
== END 2024-11-26 08:52 | disposition home or self-care (01) ==
PROVIDERS: PCP Internal Medicine; Visit Provider Internal Medicine
DX: E11.9 Type 2 diabetes mellitus without complications (principal); I10 Essential (primary) hypertension

== ENCOUNTER → 2024-11-26 08:25 | Outpatient (BNVA) | payer MEDICARE, OTHER, SELFPAY | PROVIDERS: PCP Internal Medicine; Visit Provider Internal Medicine | DX: E11.9 Type 2 diabetes mellitus without complications (principal); I10 Essential (primary) hypertension | CPT/HCPCS: 99212 ==

== ENCOUNTER 2025-05-22 08:02 | Outpatient (REF) | payer MEDICARE, OTHER, SELFPAY ==
[2025-05-22 09:38] LABS: MANUAL DIFF FLAG NO
[2025-05-22 09:47] LABS: Hematocrit 40.0 % (42.0-52.0); Hemoglobin 13.4 g/dl (14.0-18.0); Imm Gran Abs Auto 0.01 X10*3/uL (0.00-0.03); Imm Gran Pct Auto 0.2 % (0.0-0.4); Lymphocytes Absolute Auto 1.2 X10*3/uL (1.2-4.9); Mean Corpuscular HGB Conc 33.5 g/dl (31.0-36.0); Mean Corpuscular Hemoglobin 30.5 pg (27.0-33.0); Mean Corpuscular Volume 91.1 fL (80.0-98.0); NRBC Abs Auto 0.000 X10*3/uL (0.0-0.012); NRBC Pct Auto 0.0 /100WBC (0.0-0.2); Platelet Count 158 X10*3/uL (160-400); Red Blood Count 4.39 X10*6/uL (4.60-5.80); White Blood Count 4.9 X10*3/uL (4.8-10.8)
[2025-05-22 09:50] LABS: Appearance Urine Clear; Glucose Urine UA Negative (Negative); PH 6.0 (5.0-9.0); Specific Gravity - Urine 1.020 (1.005-1.025)
[2025-05-22 10:01] LABS: Hemoglobin A1C 161.8233 umol/L; Total Hemoglobin (HGBA1C) 3435.0296 umol/L
[2025-05-22 10:14] LABS: Alanine Aminotransferase 23 U/L (0-40); Albumin Level 4.7 g/dL (3.5-5.0); Alkaline Phosphatase 90 U/L (39-117); Anion Gap 13 (12-20); Aspartate Amino Transferase 25 U/L (5-37); Blood Urea Nitrogen 16 mg/dL (9-16); Calcium 9.5 mg/dL (8.4-10.2); Carbon Dioxide 27 mmol/L (22-29); Chloride 106 mmol/L (96-108); Cholesterol 162 mg/dL (<200); Estimated Glomerular Filt Rate > 60; HDL Cholesterol 44 mg/dL (>40); Potassium 3.5 mmol/L (3.3-5.1); Sodium 142 mmol/L (135-145); Total Protein 7.2 g/dL (6.5-8.0); Triglycerides 145 mg/dL (<150)
[2025-05-22 10:54] LABS: Free T4 (Free Thyroxine) 0.91 ng/dL (0.71-1.85)
== END 2025-05-22 08:03 | disposition home or self-care (01) ==
LOC: HO.10HDL 08:02
DX: Z00.00 Encounter for general adult medical examination without abnormal findings (principal); I10 Essential (primary) hypertension; E11.9 Type 2 diabetes mellitus without complications; E03.9 Hypothyroidism, unspecified; R35.1 Nocturia
CPT/HCPCS: 36415; 80053; 80061; 81003; 82306; 83036; 84439; 84443; 85025

== ENCOUNTER 2025-05-29 08:44 | Outpatient (AMB) | payer MEDICARE, OTHER, SELFPAY ==
[2025-05-29 08:45] VITALS: BP 120/62; PULSE 79; RESP 18; TEMP 36.2; O2SAT 97; BMI 28.7
--- NOTE | 2025-05-29 08:45 | MHC.PC.OV ---
Vital Signs 05/29/25 08:45 Height 5 ft 9 in Weight 194 lb 2 oz BMI 28.7 BP 120/62 Blood Pressure Location Lt brachial Position Sitting Respiration 18 Pulse 79 Pulse Source Pulse Oximeter Temp 97.1 F Temp Source Temporal Artery Scan Pulse Oximetry (%) 97 Oxygen Delivery Method Room Air Intake Visit Reasons: Transfer Care from Dr. Gtz 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 Instructions: Doctor's Order hydrochlorothiazide 12.5 mg PO DAILY lancets FREESTYLE 28G- TO CHECK BLOOD SUGARS TWICE A DAY levothyroxine 50 mcg PO DAILY meclizine 25 mg PO DAILY metformin 500 mg PO BID Held on 05/29/25. Instructions: Doctor's Order metformin ER (Glucophage XR) 1,000 mg (2 x 500 mg) PO DAILY omeprazole 20 mg PO DAILY ondansetron HCl 4 mg PO Q8H PRN pravastatin 80 mg PO DAILY scopolamine base 1 patch transdermal Q3D PRN terazosin 5 mg PO BEDTIME 90 days Tobacco use date assessed: 05/29/25 Fall risk assessment: 1 Fall in past year Last assessed Fall Risk: 05/29/25 Dental Screening Dental Screen Date: 05/29/25 Did you have a dental visit in the last 12 months?: Yes Did you have a dental problem in the last 6 months where you did not have access to dental care?: No Was dental information given to patient?: Patient has dentist HPI Transfer Care from Dr. [facility] f/u HPI Details The patient is a 64-year-old male presenting to transition care from Dr. Gtz who retired six-month ago. He is here for management of chronic conditions including hypertension, hypothyroidism, diabetes mellitus, and Meniere's disease. The patient has a history of essential hypertension and hypothyroidism, both managed with medication. He has diabetes mellitus, treated with glipizide and metformin, and experiences occasional low blood sugar episodes. His diabetes is well-controlled, with a reduced A1c 6.5%. Meniere's disease is managed by avoiding certain head positions, with meclizine used for symptom relief. Attacks vary in duration, and he has not had recent ENT follow-up due to lack of available interventions. The patient has cerumen impaction in right ear, however, there is a risk of setting off a Meniere's attack with ear flushing. Anemia, likely due to B12 and folate deficiency from past alcohol use, was recently identified. He maintains a diet rich in grains and meats, sources of B12 and folate. [facility] Medical History (Updated 05/29/25 @ 21:41 by TESS Cid) Meniere disease Diabetes mellitus with coincident hypertension Hypertension Hypothyroidism Diabetes Surgical History History of umbilical hernia repair History of cholecystectomy Family History Father No problems noted. Mother No problems noted. Son Substance use disorder Other Mental health disorder Social History Housing: House Alcohol intake: current Alcohol intake frequency: holidays/special occasions only Patient Tobacco Use Status: Former Tobacco user Tobacco use type: Cigarette e-Cigarette/Vaping Use: Never Used Second Hand Smoke Exposure: Yes service: Yes Current occupational status: retired Current occupation: rt hand Cognitive needs: No Hearing needs: No Vision needs: Yes Questionnaire PHQ-9 Over the last 2 weeks, how often have you been bothered by any of the following problems? 1. Little interest or pleasure in doing things: not at all 2. Feeling down, depressed, or hopeless: not at all 3. Trouble falling or staying asleep, or sleeping too much: not at all 4. Feeling tired or having little energy: not at all 5. Poor appetite or overeating: not at all 6. Feeling bad about yourself - or that you are a failure or have let yourself or your family down: not at all 7. Trouble concentrating on things, such as reading the newspaper or watching television: not at all 8. Moving or speaking so slowly that other people could have noticed. Or the opposite - being so fidgety or restless that you have been moving around a lot more than usual: not at all 9. Thoughts that you would be better off or of hurting yourself in some way: not at all Total score: 0 Depression Screening Interpretation: Negative Depression Screening Done: Yes Source: Developed by Drs. Laureano Dean, Gale Chandler, Baltazar Delaney and colleagues, with an educational alva from [employer]. Thrive Questionnaire Date Thrive assessed: 05/29/25 I am a: Patient What is your living situation today?: I have a steady place to live Within the past 12 months, did the food you bought not last and you didn't have the money to get more?: Never true Within the past 12 months, did you worry whether your food would run out before you got money to buy more?: Never true Do you have trouble paying for medicines?: No Do you have trouble getting transportation to medical appointments?: No Do you have trouble paying your heating and electricity bill?: No Do you have trouble taking care of your child, family member or friend?: No Do you have trouble with day-to-day activities such as bathing, preparing meals, shopping, managing finances, etc.?: No Are you currently unemployed and looking for a job?: No Are you interested in more education?: No Please select the resources that you would like help with: None Currently or been in a relationship where the following occur: No concerns reported THRIVE Score: 0 AUDIT C Alcohol Use Questionnaire (AUDIT-C) 1. How often do you have a drink containing alcohol?: Monthly or less 2. How many drinks containing alcohol do you have on a typical day when you are drinking?: 1 or 2 Total Score: 1 ARYA-7 AMB Questionnaire ARYA-7 Date ARYA - 7 assessed: 05/29/25 Feeling nervous, anxious, or on edge: 0 = Not at all Not being able to stop or control worryin = Not at all Worrying too much about different things: 0 = Not at all Trouble relaxin = Not at all Being so restless that it is hard to sit still: 0 = Not at all Becoming easily annoyed or irritable: 0 = Not at all Feeling afraid as if something awful might happen: 0 = Not at all Total ARYA-7 score (0-4 normal; 5-9 mild; 10-14 moderate; 15-21 severe): 0 Source: Developed by Drs. Laureano Dean, Gale Chandler, Baltazar Delaney and colleagues, with an educational alva from [employer]. Review of Systems Const Denies headache(s) Eyes Denies loss of vision ENT Reports vertigo (Intermittently), Denies dizziness, Denies headache(s) and Denies sore throat Card Denies chest pain, Denies leg edema and Denies lightheadedness Resp Denies cough, Denies hemoptysis and Denies wheezing GI Denies abdominal pain, Denies melena, Denies constipation, Denies diarrhea, Reports nausea (Associated with vertigo) and Denies vomiting Denies dysuria, Denies urinary frequency and Denies urinary urgency Musc Denies arthralgias, Denies joint swelling, Denies numbness and Denies tingling Neuro Denies Abnormal speech present, Denies behavioral changes, Reports vertigo (Intermittently), Denies dizziness, Denies headache(s), Denies loss of vision, Denies memory loss, Denies numbness and Denies tingling Psych Denies anxiety, Denies behavioral changes, Denies depression, Denies memory loss and Denies panic attacks Paulo/Lymph Denies easy bleeding and Denies easy bruising Aller/Immun Denies wheezing Physical exam (Primary Care) Vital Signs: Last Vital Signs Temp 97.1 F 05/29/25 08:45 Pulse 79 05/29/25 08:45 Resp 18 05/29/25 08:45 BP 120/62 05/29/25 08:45 Pulse Ox 97 05/29/25 08:45 Oxygen Delivery Method Room Air 05/29/25 08:45 BMI result Body Mass Index 28.7 Tobacco/Smoking Status: Tobacco use Status Tobacco use date assessed 05/29/25 05/29/25 08:51 Patient Tobacco Use Status Former Tobacco user 05/29/25 08:51 Tobacco use type Cigarette 05/29/25 08:51 e-Cigarette/Vaping Use Never Used 05/29/25 08:51 PHQ-9: PHQ-9 Score PHQ-9: Total score 0 05/29/25 16:27 Depression Screening Interpretation: Negative Thrive Assessment: Date of Thrive Assessment Date Thrive assessed 05/29/25 05/29/25 08:51 Currently or been in a relationship where the following occur: No concerns reported Const General: healthy appearing, no acute distress, alert and awake Nutritional Appearance: well nourished Orientation/consciousness: oriented to person, oriented to place and oriented to time HENMT Ears: TM normal on the left and Abnormal EAC present cerumen impaction on the right General nose exam: Normal nasal mucous membranes and turbinates present Eyes Conjunctivae: conjunctivae normal Sclerae: sclerae normal Pupils: Equal, round and reactive pupils present Neck Neck: Yes no lymphadenopathy and Yes no JVD Thyroid: Thyroid normal Carotids: no bruits Resp Effort & Inspection: normal respiratory effort and not tachypneic Auscultation: no crackles, no rales, no rhonchi and no wheezes Cardio Rate: regular rate Rhythm: regular rhythm Heart sounds: S1 normal heart sound present, S2 normal heart sound present, no murmurs and normal S1 and S2 GI Palpation (GI): Soft to palpation, nontender, no hepatomegaly and no splenomegaly Auscultation: normal bowel sounds General: Yes no CVA tenderness Back/Spine/Pelvis Back: no CVA tenderness Skin General skin exam: no rashes or lesions noted and dry skin Neuro General: oriented to person, oriented to place and oriented to time Cranial nerves: Yes Equal, round and reactive pupils present Speech: No Abnormal speech present Gait exam (Neuro): Normal gait present Motor exam (neuro): no tremor noted Extrem Right upper extremity: full ROM Left upper extremity: full ROM Right lower extremity: full ROM; no edema Left lower extremity: full ROM; no edema Psych Mental Status: mental status grossly normal Speech and movement: Normal speech and movement present Affect: normal affect Attitude: cooperative Thought process: Normal thought process present Results Reviewed Results Reviewed: Laboratory Tests 05/22/25 08:05 WBC 4.9 RBC 4.39 L Hgb 13.4 L Hct 40.0 L MCV 91.1 MCH 30.5 MCHC 33.5 RDW 13.1 Plt Count 158 L Sodium 142 Potassium 3.5 Chloride 106 Carbon Dioxide 27 Anion Gap 13 BUN 16 Creatinine 0.93 Estimated GFR > 60 Fasting Glucose 121 H Estimat Average Glucose 140 Hemoglobin A1c % 6.5 H Calcium 9.5 Total Bilirubin 0.3 AST 25 ALT 23 Alkaline Phosphatase 90 Total Protein 7.2 Albumin 4.7 Triglycerides 145 Cholesterol 162 LDL Cholesterol, Calc 89 HDL Cholesterol 44 25-OH Vitamin D Total 38.1 TSH 4.80 H Free T4 0.91 Urine Color Yellow Urine Appearance Clear Urine pH 6.0 Ur Specific [place] 1.020 Urine Protein Negative Urine Glucose (UA) Negative Urine Ketones Negative Urine Blood Negative Urine Nitrite Negative Ur Leukocyte Esterase Negative Coding Level of Care Code Est Pt Level 4 (15795) Diagnoses Hypertension, unspecified type I10 Hypertension type: unspecified Type 2 diabetes mellitus with other specified complication, without long-term current use of insulin E11.69 Diabetes mellitus type: type 2 Diabetes mellitus half-way insulin use: without half-way use Diabetes mellitus complication status: with other specified complication Hypothyroidism, unspecified type E03.9 Hypothyroidism type: unspecified BPH w urinary obs/LUTS N40.1; N13.8 Meniere's disease of both ears H81.03 Laterality: bilateral Impacted cerumen of right ear H61.21 Laterality: right Anemia, unspecified type D64.9 Anemia type: unspecified type Time Spent (min) 39 Assessment & Plan Assessment & Plan (1) Hypertension: Code(s): I10 - Essential (primary) hypertension Category: Medical Qualifiers: Hypertension type: unspecified Qualified Code(s): I10 - Essential (primary) hypertension Plan: The patient's essential hypertension is being managed with medication, and no changes were discussed during this visit. Encouraged low-salt diet. Continue amlodipine 5 mg, hydrochlorothiazide 12.5 mg daily (2) Diabetes: Code(s): E11.9 - Type 2 diabetes mellitus without complications Category: Medical Qualifiers: Diabetes mellitus type: type 2 Diabetes mellitus intermediate card tender insulin use: without intermediate card tender use Diabetes mellitus complication status: with other specified complication Qualified Code(s): E11.69 - Type 2 diabetes mellitus with other specified complication Plan: The patient is currently on glipizide and metformin for diabetes management. A plan was discussed to increase metformin to 1000 mg XR 2 tabs daily and discontinue glipizide if blood sugar levels remain stable. Follow-up in three months with repeat A1c testing was recommended to assess the effectiveness of this change. A1c was 6.5% (3) Hypothyroidism: Code(s): E03.9 - Hypothyroidism, unspecified Category: Medical Qualifiers: Hypothyroidism type: unspecified Qualified Code(s): E03.9 - Hypothyroidism, unspecified Plan: The patient's hypothyroidism is under control with current treatment, and no adjustments were made during this visit. Continue levothyroxine 50 mcg daily (4) BPH w urinary obs/LUTS: Code(s): N40.1 - Benign prostatic hyperplasia with lower urinary tract symptoms; N13.8 - Other obstructive and reflux uropathy Category: Medical Plan: Continue terazosin 5 mg at bedtime Follow up with Urology as scheduled (5) Meniere disease: Code(s): H81.09 - Meniere's disease, unspecified ear Category: Medical Qualifiers: Laterality: bilateral Qualified Code(s): H81.03 - Meniere's disease, bilateral Plan: The patient manages Meniere's disease by avoiding certain head positions and using meclizine as needed. A referral to ENT was discussed to address ear wax buildup, which may exacerbate symptoms. (6) Cerumen impaction: Code(s): H61.20 - Impacted cerumen, unspecified ear Category: Medical Qualifiers: Laterality: right Qualified Code(s): H61.21 - Impacted cerumen, right ear Plan: Right ear cerumen impaction. Discussed using Debrox ear drops and flushing ear, which might trigger a Meniere's attack. The decision was made refer the patient to ENT instead. (7) Anemia: Code(s): D64.9 - Anemia, unspecified Category: Medical Qualifiers: Anemia type: unspecified type Qualified Code(s): D64.9 - Anemia, unspecified Plan: Anemia was identified, likely due to B12 and folate deficiency from past alcohol use. Dietary intake of B12 and folate-rich foods was encouraged, and follow-up labs were planned to monitor levels. Orders: Orders Complete Blood Count Auto Diff 3 Months E03.9 - Hypothyroidism, unspecified, E11.9 - Type 2 diabetes mellitus without complications, I10 - Essential (primary) hypertension, N13.8 - Other obstructive and reflux uropathy, N40.1 - Benign prostatic hyperplasia with lower urinary tract symptoms Comprehensive [place]. Panel Fast 3 Months E03.9 - Hypothyroidism, unspecified, E11.9 - Type 2 diabetes mellitus without complications, I10 - Essential (primary) hypertension, N13.8 - Other obstructive and reflux uropathy, N40.1 - Benign prostatic hyperplasia with lower urinary tract symptoms Vitamin D 25-OH Total 3 Months E03.9 - Hypothyroidism, unspecified, E11.9 - Type 2 diabetes mellitus without complications, I10 - Essential (primary) hypertension, N13.8 - Other obstructive and reflux uropathy, N40.1 - Benign prostatic hyperplasia with lower urinary tract symptoms TSH reflex Free T4 3 Months E03.9 - Hypothyroidism, unspecified, E11.9 - Type 2 diabetes mellitus without complications, I10 - Essential (primary) hypertension, N13.8 - Other obstructive and reflux uropathy, N40.1 - Benign prostatic hyperplasia with lower urinary tract symptoms Hemoglobin A1c 3 Months E03.9 - Hypothyroidism, unspecified, E11.9 - Type 2 diabetes mellitus without complications, I10 - Essential (primary) hypertension, N13.8 - Other obstructive and reflux uropathy, N40.1 - Benign prostatic hyperplasia with lower urinary tract symptoms Vitamin B12 and Folate 3 Months E03.9 - Hypothyroidism, unspecified, E11.9 - Type 2 diabetes mellitus without complications, I10 - Essential (primary) hypertension, N13.8 - Other obstructive and reflux uropathy, N40.1 - Benign prostatic hyperplasia with lower urinary tract symptoms Lipid Panel 3 Months E03.9 - Hypothyroidism, unspecified, E11.9 - Type 2 diabetes mellitus without complications, I10 - Essential (primary) hypertension, N13.8 - Other obstructive and reflux uropathy, N40.1 - Benign prostatic hyperplasia with lower urinary tract symptoms UA CC w/rflx Micro + Cult 3 Months E03.9 - Hypothyroidism, unspecified, E11.9 - Type 2 diabetes mellitus without complications, I10 - Essential (primary) hypertension, N13.8 - Other obstructive and reflux uropathy, N40.1 - Benign prostatic hyperplasia with lower urinary tract symptoms Referrals Ear/Nose/Throat Referral H61.21 - Impacted cerumen, right ear, H81.03 - Meniere's disease, bilateral Medications: New metformin ER (Glucophage XR) 1,000 mg (2 x 500 mg) PO DAILY 30 tabs 3RF On Hold glipizide ER Hold Comment: Doctor's Order 5 mg PO DAILY 90 tabs 8RF metformin Hold Comment: Doctor's Order 500 mg PO BID 180 tabs 8RF
== END 2025-05-29 09:38 | disposition home or self-care (01) ==
LOC: HO.HMCH 08:44
DX: I10 Essential (primary) hypertension (principal); E11.69 Type 2 diabetes mellitus with other specified complication; E03.9 Hypothyroidism, unspecified; N40.1 Benign prostatic hyperplasia with lower urinary tract symptoms; N13.8 Other obstructive and reflux uropathy; H81.03 Meniere's disease, bilateral; H61.21 Impacted cerumen, right ear; D64.9 Anemia, unspecified

== ENCOUNTER → 2025-05-29 08:44 | Outpatient (BNVA) | payer MEDICARE, OTHER, SELFPAY | PROVIDERS: PCP Internal Medicine | DX: I10 Essential (primary) hypertension (principal); E03.9 Hypothyroidism, unspecified; D64.9 Anemia, unspecified; E11.69 Type 2 diabetes mellitus with other specified complication; N40.1 Benign prostatic hyperplasia with lower urinary tract symptoms; N13.8 Other obstructive and reflux uropathy; H81.03 Meniere's disease, bilateral; H61.21 Impacted cerumen, right ear; Z79.84 Long term (current) use of oral hypoglycemic drugs | CPT/HCPCS: 96127; 99212 ==

== ENCOUNTER 2025-06-21 08:25 | Outpatient (AMB) | payer MEDICARE, OTHER, SELFPAY ==
--- NOTE | 2025-06-21 08:27 | MHC.OFFVIS ---
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 He is a patient of Dr. Ward. He is seen for the following urologic conditions. - lower urinary tract symptoms Yearly appointment Has remained on combination therapy Finasteride back to Tuesday, Tuesday, Tuesday Borderline HbA1c 6.5 Recommend testosterone review None on file Check today Has lost significant weight over past 4 years On metformin 500 mg t.i.d. Lower urinary tract symptoms Current visit is for - further evaluation of lower urinary tract symptoms Current treatment includes - terazosin 5 mg, finasteride Prior treatments include - tamsulosin Prostate Symptom Score - mild, bother 2 Symptoms include - weak stream, incomplete emptying and had been improving Results from testing include - Renal/bladder us Yes Date August 2020 PVR 10 Prostate Size 40 Prior Prostate Score mild PSA 09/07 1.3, 05/10 0.8, 06/11 0.8, 06/12 0.9, 06/13 0.9 Prostate volume 30 Testing at next visit will include - PVR Treatment plan continue with medications. Prescriptions provided [facility] Medical History (Updated 05/29/25 @ 21:41 by TESS Cid) Meniere disease Diabetes mellitus with coincident hypertension Hypertension Hypothyroidism Diabetes Surgical History History of umbilical hernia repair History of cholecystectomy Family History Father No problems noted. Mother No problems noted. Son Substance use disorder Other Mental health disorder Social History Housing: House Alcohol intake: current Alcohol intake frequency: holidays/special occasions only Patient Tobacco Use Status: Former Tobacco user Tobacco use type: Cigarette e-Cigarette/Vaping Use: Never Used Second Hand Smoke Exposure: Yes service: Yes Current occupational status: retired Current occupation: rt hand Cognitive needs: No Hearing needs: No Vision needs: Yes Review of Systems Const Denies chills and Denies fever(s) Card Reports no additional complaints and Denies syncope Resp Denies cough GI Denies abdominal pain and Denies heartburn Reports as per HPI and Denies change in libido Neuro Denies syncope Psych Denies change in libido Endo Denies change in libido Physical Exam Const General: cooperative, healthy appearing, comfortable and no acute distress Orientation/consciousness: patient oriented x3 HEENT Face and sinus: Yes normal facial exam Mouth: moist mucous membranes Neck Neck: Yes normal visual inspection, Yes full ROM and Yes trachea midline Chest Chest palpation & inspection: normal inspection of the chest Resp Effort & Inspection: normal respiratory effort, able to speak in complete sentences and no respiratory distress GI Inspection: Yes normal to inspection Back/Spine/Pelvis Cervical Spine: normal cervical lordosis Thoracic/Lumbar Spine: thoracic and lumbar spine normal to inspection Skin General skin exam: no rashes or lesions noted Neuro General: patient oriented x3, gait normal, tone normal and moves all extremities Extrem General: Yes normal to inspection and Yes capillary refill normal Office Procedures Post Void Residual Post Residual Void Post Void Residual (PVR): 0 [id number] Void Residual by ultrasound Results AMB Urinalysis, Automated UA Leukoctes 0 Marcel/uL Last Edit by NICOLETTE Schmitt on 06/21/25 08:48 UA Nitrite Last Edit by NICOLETTE Schmitt on 06/21/25 08:48 UA Urobilinogen 0.2 mg/dL Last Edit by NICOLETTE Schmitt on 06/21/25 08:48 UA Protein 15 mg/dL Last Edit by NICOLETTE Schmitt on 06/21/25 08:48 UA pH 6.0 Last Edit by NICOLETTE Schmitt on 06/21/25 08:48 UA Blood 0 Enoc/uL Last Edit by NICOLETTE Schmitt on 06/21/25 08:48 UA Specific [place] 1.015 Last Edit by NICOLETTE Schmitt on 06/21/25 08:48 UA Ketone Last Edit by NICOLETTE Schmitt on 06/21/25 08:48 UA Bilirubin 1 mg/dL Last Edit by NICOLETTE Schmitt on 06/21/25 08:48 UA Glucose 0 mg/dL Last Edit by NICOLETTE Schmitt on 06/21/25 08:48 Assessment & Plan Assessment & Plan (1) Nocturia more than twice per night: Code(s): R35.1 - Nocturia Category: Medical (2) BPH w urinary obs/LUTS: Code(s): N40.1 - Benign prostatic hyperplasia with lower urinary tract symptoms; N13.8 - Other obstructive and reflux uropathy Category: Medical Plan Twelve month follow-up PSA Orders: Orders AMB Post Void Residual by ultrasound Today N13.8 - Other obstructive and reflux uropathy, N40.1 - Benign prostatic hyperplasia with lower urinary tract symptoms Testosterone, Total Today E11.69 - Type 2 diabetes mellitus with other specified complication Lutenizing Hormone Today E11.69 - Type 2 diabetes mellitus with other specified complication AMB Urinalysis Automated Today Z13.9 - Encounter for screening, unspecified Prostate Specific Antigen 12 Months N13.8 - Other obstructive and reflux uropathy, N40.1 - Benign prostatic hyperplasia with lower urinary tract symptoms Medications: Discontinued glipizide ER Discontinued Reason: Patient Completed Course 5 mg PO DAILY 90 tabs 8RF metformin Discontinued Reason: Patient Completed Course 500 mg PO BID 180 tabs 8RF Patient Instructions: This note is constructed using voice recognition software. While every effort has been made to ensure accuracy boilermaker industrial boilers errors may have been included. Imaging studies, laboratory and physical exam results were discussed and reviewed in detail. No major barriers to patient understanding were identified. An opportunity to ask questions regarding the treatment plan was provided. All questions were answered. The patient expressed understanding and agreement with the above treatment plan. The patient is aware they should contact our office by phone for worsening of their current condition or the appearance of new urologic symptoms. Compliance is encouraged with any medications and followup testing that is ordered. It is a privilege to participate in the urologic care of your patient. If you have any questions or concerns regarding treatment for the above conditions, or other urologic issues, please do not hesitate to contact me. The office telephone contact is [phone]. Sincerely, Dr Michael Quintanilla MD, [facility] - Urology Compassionate Specialist Care for the Genitourinary System Coding Level of Care Code Est Pt Level 4 (56049) Complex EM visit Add On G2211 Diagnoses Nocturia more than twice per night R35.1 BPH w urinary obs/LUTS N40.1; N13.8 CPT Codes Post Residual Void - PVR CPT Code: 99643-Vhlb Void Residual by ultrasound ([id number])
== END 2025-06-21 08:53 | disposition home or self-care (01) ==
LOC: HO.HUSH 08:25
PROVIDERS: Visit Provider Urology
DX: N40.1 Benign prostatic hyperplasia with lower urinary tract symptoms (principal); R35.1 Nocturia; N13.8 Other obstructive and reflux uropathy
CPT/HCPCS: 99214

== ENCOUNTER → 2025-06-21 08:25 | Outpatient (BNVA) | payer MEDICARE, OTHER, SELFPAY | PROVIDERS: Visit Provider Urology | DX: N40.1 Benign prostatic hyperplasia with lower urinary tract symptoms (principal); R35.1 Nocturia; N13.8 Other obstructive and reflux uropathy | CPT/HCPCS: 51798; 81003; 99212 ==

== ENCOUNTER 2025-06-21 08:54 | Outpatient (REF) | payer MEDICARE, OTHER, SELFPAY | END 2025-06-21 08:55 | disposition home or self-care (01) | LOC: HO.10HDL 08:54 | PROVIDERS: Visit Provider Urology | DX: E11.69 Type 2 diabetes mellitus with other specified complication (principal) | CPT/HCPCS: 36415; 83002; 84403 ==

== ENCOUNTER 2025-06-25 10:57 | Outpatient (AMB) | payer MEDICARE, OTHER, SELFPAY ==
--- NOTE | 2025-06-25 11:02 | MHC.PC.OV ---
Vital Signs 06/25/25 11:03 Height 5 ft 9 in Weight 187 lb 6 oz BMI 27.7 BP 140/64 H Blood Pressure Location Lt brachial Position Sitting Pulse 112 H Pulse Source Pulse Oximeter Temp 97.1 F Temp Source Temporal Artery Scan Pulse Oximetry (%) 98 Oxygen Delivery Method Room Air Intake Visit Reasons: Bad Cough Intake Note: Patient is here to follow up on Bad cough. Other symptoms are no appetite, fatigue, diarrhea and chills on Tuesday. Did not test for covid at home. 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 The patient has been experiencing diarrhea since the increase in metformin dosage to three 500 mg extended-release tablets daily, which began on the of the month. The diarrhea is severe, with the patient reporting significant fluid loss in the mornings, occurring two to three times before subsiding. Imodium has been ineffective in managing the symptoms, and the diarrhea persisted. The patient also reports a persistent cough that began around the same time as the diarrhea, approximately a day after starting the increased metformin dosage. The cough has progressively worsened, impacting the patient's ability to walk and perform daily activities. There is no associated fever or chills currently, although chills were experienced over the weekend. The patient has a history of well-controlled diabetes mellitus with an A1c of 6.5 or below when on a regimen of metformin and glipizide. The recent change in medication was due to a previous physician's preference to discontinue glipizide, due to concerns of low blood sugar. The patient has been monitoring blood glucose levels more frequently due to fluctuations, with recent readings as high as 150 mg/dL in the morning. The patient denies smoking for the past 23 years and reports significant weight loss of approximately 50 pounds. He maintains an active lifestyle, walking seven miles daily, and has recently eliminated sugar from his diet, reporting improved well-being. [facility] Medical History (Updated 06/25/25 @ 12:03 by Harvinder Acuña MD) Meniere disease Diabetes mellitus with coincident hypertension Hypertension Hypothyroidism Diabetes Surgical History History of umbilical hernia repair History of cholecystectomy Family History Father No problems noted. Mother No problems noted. Son Substance use disorder Other Mental health disorder Social History Housing: House Alcohol intake: current Alcohol intake frequency: holidays/special occasions only Patient Tobacco Use Status: Former Tobacco user Tobacco use type: Cigarette e-Cigarette/Vaping Use: Never Used Second Hand Smoke Exposure: Yes service: Yes Current occupational status: retired Current occupation: rt hand Cognitive needs: No Hearing needs: No Vision needs: Yes Questionnaire Thrive Questionnaire Date Thrive assessed: 05/23/25 I am a: Patient What is your living situation today?: I have a steady place to live Within the past 12 months, did the food you bought not last and you didn't have the money to get more?: Never true Within the past 12 months, did you worry whether your food would run out before you got money to buy more?: Never true Do you have trouble paying for medicines?: No Do you have trouble getting transportation to medical appointments?: No Do you have trouble paying your heating and electricity bill?: No Do you have trouble taking care of your child, family member or friend?: No Do you have trouble with day-to-day activities such as bathing, preparing meals, shopping, managing finances, etc.?: No Are you currently unemployed and looking for a job?: No Are you interested in more education?: No Please select the resources that you would like help with: None Currently or been in a relationship where the following occur: No concerns reported THRIVE Score: 0 ARYA-7 AMB Questionnaire ARYA-7 Date ARYA - 7 assessed: 05/29/25 Source: Developed by Drs. Laureano Dean, Gale Chandler, Baltazar Delaney and colleagues, with an educational alva from [employer]. Review of Systems Const Details: Positives besides what was mentioned in HPI are in BOLD Constitutional: No Weight Change, No Fever, No Chills, No Night Sweats, No Fatigue, No Malaise ENT/Mouth: No Hearing Changes, No Ear Pain, No Nasal Congestion, No Sinus Pain, No Hoarseness, No sore throat, No Rhinorrhea, No Swallowing Difficulty Eyes: No Eye Pain, No Swelling, No Redness, No Foreign Body, No Discharge, No Vision Changes Cardiovascular: No Chest Pain, No SOB, No PND, No Dyspnea on Exertion, No Orthopnea, No Claudication, No Edema, No Palpitations Respiratory: No Cough, No Sputum, No Wheezing, No Smoke Exposure, No Dyspnea Gastrointestinal: No Nausea, No Vomiting, No Diarrhea, No Constipation, No Pain, No Heartburn, No Anorexia, No Dysphagia, No Hematochezia, No Melena, No Flatulence, No Jaundice Genitourinary: No Dysmenorrhea, No DUB, No Dyspareunia, No Dysuria, No Urinary Frequency, No Hematuria, No Urinary Incontinence, No Urgency, No Flank Pain, No Urinary Flow Changes, No Hesitancy Musculoskeletal: No Arthralgias, No Myalgias, No Joint Swelling, No Joint Stiffness, No Back Pain, No Neck Pain, No Injury History Skin: No Skin Lesions, No Pruritis, No Hair Changes, No Breast/Skin Changes, No Nipple Discharge Neuro: No Weakness, No Numbness, No Paresthesias, No Loss of Consciousness, No Syncope, No Dizziness, No Headache, No Coordination Changes, No Recent Falls Psych: No Anxiety/Panic, No Depression, No Insomnia, No Personality Changes, No Delusions, No Rumination, No SI/HI/AH/VH, No Social Issues, No Memory Changes, No Violence/Abuse Hx., No Eating Concerns Heme/Lymph: No Bruising, No Bleeding, No Transfusions History, No Lymphadenopathy Endocrine: No Polyuria, No Polydipsia, No Temperature Intolerance Physical exam (Primary Care) Vital Signs: Last Vital Signs Temp 97.1 F 06/25/25 11:03 Pulse 112 H 06/25/25 11:03 BP 140/64 H 06/25/25 11:03 Pulse Ox 98 06/25/25 11:03 Oxygen Delivery Method Room Air 06/25/25 11:03 BMI result Body Mass Index 27.7 Tobacco/Smoking Status: Tobacco use Status Tobacco use date assessed 06/25/25 06/25/25 11:09 Patient Tobacco Use Status Former Tobacco user 06/25/25 11:09 Tobacco use type Cigarette 06/25/25 11:09 e-Cigarette/Vaping Use Never Used 06/25/25 11:09 Thrive Assessment: Date of Thrive Assessment Date Thrive assessed 05/23/25 06/25/25 11:09 Currently or been in a relationship where the following occur: No concerns reported Const Other: Pertinent findings are in BOLD GENERAL APPEARANCE NAD, activity normal for age, well developed/ well nourished, no cyanosis, pallor, or diaphoresis. EYES lids/conjunctiva normal. EARS/NOSE/THROAT Mucous membranes moist, nares normal, lips/teeth normal uvula midline without oral pharyngeal erythema, exudate or swelling TMs normal bilaterally. No lymphangitis/lymphedema. HEAD/NECK normocephalic atraumatic, no facial trauma, neck is supple. RESPIRATORY respiratory effort normal, speaks in full sentences, no tripod position, no accessory muscle use. Lungs clear to auscultation without rhonchi, wheezes, rales CARDIAC Regular rate and rhythm, no edema. ABDOMINAL Soft, ND/NT. No evidence of fluid wave. No pulsatile masses on exam, rebound tenderness, Ramires sign or pain over Mcburney's point. MUSCLES/EXTREMITIES No abnormal range of motion, no swelling. SKIN Warm, pink and dry. No rashes, dermatoses, petechiae or lesions. NEUROLOGICAL Speech is clear and appropriate. Normal level of consciousness. Gait and coordination are normal. 5/5 strength in all extremities. PSYCH Normal mood and affect. Judgement/competence is appropriate Coding Level of Care Code Est Pt Level 4 (16439) Diagnoses Cough R05.9 Diarrhea R19.7 Type 2 diabetes mellitus with other specified complication, without long-term current use of insulin E11.69 Diabetes mellitus type: type 2 Diabetes mellitus terminal press operator insulin use: without care home use Diabetes mellitus complication status: with other specified complication Insomnia G47.00 Time Spent (min) 30 Assessment & Plan Assessment & Plan (1) Cough: Code(s): R05.9 - Cough, unspecified Category: Medical Plan: - Conduct COVID-19 and flu testing to rule out infectious causes. - Prescribe Z-Yimi (azithromycin) for potential bacterial infection. - Order chest x-ray to assess for any underlying pulmonary issues. - Continue OTC cough medication. (2) Diarrhea: Code(s): R19.7 - Diarrhea, unspecified Category: Medical Plan: Might be 2/2 Metformin dose increase vs viral infection. Metformrin dose reduced to 625 BID. Was increased to 1500 mg ER. Conduct COVID-19 and flu testing to rule out infectious causes. (3) Diabetes: Code(s): E11.9 - Type 2 diabetes mellitus without complications Category: Medical Qualifiers: Diabetes mellitus type: type 2 Diabetes mellitus terminal press operator insulin use: without terminal press operator use Diabetes mellitus complication status: with other specified complication Qualified Code(s): E11.69 - Type 2 diabetes mellitus with other specified complication Plan: Patient reports significant diarrhea since his metformin was increased. He reports his blood sugar were better controlled when he was on Glipizide. Metformin dose reduced back to 625 BID. Okay to increase the dose once GI symptoms improve. Sitagliptin was started. Asked patient to bring Blood sugar log to his next appointment. (4) Insomnia: Code(s): G47.00 - Insomnia, unspecified Category: Medical Plan: Started Melatonin 3 mg Daily. Plan During the visit, we discussed the management of diabetes mellitus, including adjusting the metformin dosage and introducing sitagliptin to better control blood glucose levels. We also addressed the patient's gastrointestinal symptoms by reducing the metformin dosage and monitoring for improvement. For the cough, we planned to conduct COVID-19 and flu testing, prescribe a Z-Yimi, and order a chest x-ray to rule out any underlying issues. Additionally, we recommended melatonin to help with insomnia. Follow-up was advised to monitor the effectiveness of these interventions. Orders: Orders XR chest 2V Today R05.9 - Cough, unspecified SARS-CoV2/FLU/RSV Today R05.9 - Cough, unspecified Medications: New azithromycin 1 g PO DAILY 10 ea 0RF 5 days melatonin 3 mg PO BEDTIME PRN 30 caps 3RF sleep metformin 625 mg PO BID 30 tabs 3RF sitagliptin 25 mg PO DAILY 30 tabs 3RF Discontinued metformin ER (Glucophage XR) Discontinued Reason: Doctor's Order 1,500 mg (3 x 500 mg) PO DAILY 90 tabs 3RF
[2025-06-25 11:03] VITALS: BP 140/64; PULSE 112; TEMP 36.2; O2SAT 98; BMI 27.7
== END 2025-06-25 12:31 | disposition home or self-care (01) ==
LOC: HO.HMCH 10:58
PROVIDERS: Visit Provider Internal Medicine
DX: R05.9 Cough, unspecified (principal); R19.7 Diarrhea, unspecified; E11.69 Type 2 diabetes mellitus with other specified complication; G47.00 Insomnia, unspecified

== ENCOUNTER 2025-06-25 10:57 | Outpatient (REF) | payer MEDICARE, OTHER, SELFPAY ==
--- NOTE | ~2025-06-25 | XR_ITS ---
EXAMINATION: XR CHEST CLINICAL INFORMATION: R05.9 - Cough, unspecified COMPARISON: None available. TECHNIQUE: 2 views of the chest were obtained. FINDINGS: The patient is rotated toward the right. No significant abnormality is noted involving the heart, lungs, mediastinum, bony thorax or soft tissues. XR/XR chest 2V IMPRESSION: No acute disease. Electronically signed by: Severiano Donahue MD 06/25/2025 12:43 PM EDT
[2025-06-25 13:31] LABS: Resp Syncy Virus RNA Qual PCR NEGATIVE (Negative); SARS COV2 PCR INHOUSE NEGATIVE (Negative)
== END 2025-06-25 10:58 | disposition home or self-care (01) ==
LOC: HO.XRAY 10:57
PROVIDERS: Visit Provider Internal Medicine
DX: R05.3 Chronic cough (principal); E11.9 Type 2 diabetes mellitus without complications; E11.69 Type 2 diabetes mellitus with other specified complication; G47.00 Insomnia, unspecified; R19.7 Diarrhea, unspecified; Z79.84 Long term (current) use of oral hypoglycemic drugs; Z87.891 Personal history of nicotine dependence
CPT/HCPCS: 71046; 87637; 99212

== ENCOUNTER → 2025-06-25 12:28 | Outpatient (BNV) | payer MEDICARE, OTHER, SELFPAY | PROVIDERS: Visit Provider Radiology Diagnostic Radiology | DX: R05.9 Cough, unspecified (principal) | CPT/HCPCS: 71046 ==

== ENCOUNTER 2025-07-01 11:14 | Inpatient (IN) | payer MEDICARE, OTHER, SELFPAY ==
[2025-07-01] VITALS (7 sets, daily range): BP systolic 130–179; BP diastolic 70–89; PULSE 61–118; RESP 16–20; TEMP 35.9–36.6; O2SAT 95–99; BMI 26.4
--- NOTE | ~2025-07-01 | XR_ITS ---
CLINICAL HISTORY: cough 2 view chest x-ray Comparison: CR/SR - XR CHEST 2 VIEWS - 06/25/25 12:35 EDT Findings: The lungs are clear. Normal size heart. No acute fracture. IMPRESSION: 1. No acute findings. This document has been electronically signed by: Jaya Dobson DO on 07/01/2025 12:40:26
--- NOTE | ~2025-07-01 | CT_ITS ---
CLINICAL HISTORY: Diffuse abdominal pain, persistent vomiting CT abdomen and pelvis with contrast Comparison: None available Findings: No consolidation at the lung bases. Unremarkable gallbladder and bladder. The solid organs are normal. Small hiatal hernia. Duodenal and jejunal diverticula. No bowel wall thickening or dilation. A normal appendix is identified. Colonic diverticulosis. No aneurysm. Mild calcified atherosclerotic disease. No lymphadenopathy. No ascites. No acute osseous abnormality. Impression: No acute findings. This document has been electronically signed by: Ivon Capone MD on 07/01/2025 14:00:53
--- NOTE | 2025-07-01 11:20 | ED.GENADULT ---
HPI - General Adult General Chief complaint: Nausea/Vomiting/Diarrhea Stated complaint: n/v/d 1 week Time Seen by Provider: 07/01/25 12:44 Source: patient Mode of arrival: ambulatory Limitations: no limitations History of Present Illness ED Provider: DR. Reyes HPI narrative: A 64-year-old male history of diabetes symptoms started a week ago with cough and nonbloody watery diarrhea patient was seen and evaluated by his PCP started on the Zithromax x5 days with persistent of his symptoms, patient now complaining of vomiting on unable to keep any food or fluids down, patient claimed that he lost 8 lb in the last week. Complain of no abdominal pain, no fever, no chills, no recent travel, patient recently used Zithromax, patient reports that the GI symptoms started before using the Zithromax. Past surgical abdominal history significant for cholecystectomy, patient has been passing flatus with ongoing diarrhea. Exposure to sick contacts 2 days before patient's symptoms started. Related Data Home Medications ?Medication ?Instructions ?Recorded ?Confirmed aspirin 81 mg tablet,delayed 81 mg PO DAILY 07/03/21 05/29/25 release (Adult Low Dose Aspirin) Previous Rx's ?Medication ?Instructions ?Recorded scopolamine base 1 mg over 3 days 1 patch transdermal Q3D PRN nausea 12/28/23 transdermal patch and vomiting #4 ea meclizine 25 mg chewable tablet 25 mg PO DAILY #90 tabs 03/09/24 ondansetron HCl 4 mg tablet 4 mg PO Q8H PRN nausea and 04/25/24 vomiting #20 tabs amlodipine 5 mg tablet 5 mg PO DAILY #90 tabs 09/05/24 blood sugar diagnostic (FreeStyle #200 ea 09/05/24 Lite Strips) finasteride 5 mg tablet 5 mg PO DAILY 90 days #90 tabs 09/05/24 hydrochlorothiazide 12.5 mg tablet 12.5 mg PO DAILY #90 tabs 09/05/24 lancets 28 gauge #200 ea 09/05/24 levothyroxine 50 mcg tablet 50 mcg PO DAILY #90 tabs 09/05/24 omeprazole 20 mg capsule,delayed 20 mg PO DAILY #90 caps 09/05/24 release terazosin 5 mg capsule 5 mg PO BEDTIME 90 days #90 caps 09/05/24 pravastatin 80 mg tablet 80 mg PO DAILY #90 tabs 11/08/24 melatonin 3 mg capsule 3 mg PO BEDTIME PRN sleep #30 caps 06/25/25 azithromycin 500 mg tablet 1,000 mg (2 x 500 mg) PO DAILY 5 06/26/25 days #10 tabs glipizide 5 mg tablet 5 mg PO DAILY #90 tabs 06/27/25 metformin 500 mg tablet 500 mg PO BID 90 days #180 tabs 06/27/25 Allergies Allergy/AdvReac Type Severity Reaction Status Date / Time lisinopril (LISINOPRIL) Allergy Severe ANGIOEDEMA, Verified 07/01/25 11:21 hives Review of Systems Review of Systems: All other systems are reviewed and are negative Constitutional: Reports as per HPI and Reports no additional constitutional complaints Eyes: Reports as per HPI and Reports no additional eye complaints Reports system reviewed and no additional complaints, except as documented Cardiovascular: Reports as per HPI and Reports no additional cardiovascular complaints Respiratory: Reports as per HPI and Reports no additional respiratory complaints Gastrointestinal: Reports as per HPI and Reports no additional gastrointestinal complaints Genitourinary: Reports no additional female genitourinary complaints Musculoskeletal: Reports no additional musculoskeletal complaints Skin/Breast: Reports system reviewed and no additional complaints, except as docu Psychiatric: Reports no additional psychiatric complaints Endocrine: Reports no additional endocrine complaints Hematologic/Lymphatic: Reports no additional hematologic/lymphatic complaints Allergic/Immunologic: Reports no additional allergic/immunologic complaints Reports system reviewed and no additional complaints, except as documented and Reports Abnormal speech present [facility] Past Medical History Medical History Meniere disease Diabetes mellitus with coincident hypertension Hypertension Hypothyroidism Diabetes Surgical History History of umbilical hernia repair History of cholecystectomy Family History Family History Father No problems noted. Mother No problems noted. Son Substance use disorder Other Mental health disorder Social History Social History Housing: House Alcohol intake: current Alcohol intake frequency: holidays/special occasions only Patient Tobacco Use Status: Former Tobacco user Tobacco use type: Cigarette Smoked in Last 30 Days: No e-Cigarette/Vaping Use: Never Used Second Hand Smoke Exposure: Yes Use of substances other than those prescribed or required for medical reasons: No Advance Directives: Yes Advance Directives Information Provided: No Advance Directives on File: No Do you have a plan to hurt others: No Plan service: Yes Current occupational status: retired Current occupation: rt hand Cognitive needs: No Hearing needs: No Vision needs: Yes Physical Exam ED Vital Signs: Vital Signs - 24 hr 07/01/25 11:20 07/01/25 13:38 07/01/25 13:38 Temperature 97.6 F Pulse Rate 118 H 78 80 Respiratory Rate 20 Blood Pressure 179/89 H 142/81 H 142/75 H Pulse Oximetry 95 Oxygen Delivery Method Room Air 07/01/25 13:41 Temperature Pulse Rate 98 Respiratory Rate Blood Pressure 148/82 H Pulse Oximetry Oxygen Delivery Method BMI result Body Mass Index 26.4 Vital signs have been reviewed and appear to be correct. Blood pressure elevated. Heart rate normal. Respiratory rate normal. Temperature normal. Oxygen saturation normal. Appearance: Alert. Oriented X3. No acute distress. Head: Normal external exam. Normocephalic. Atraumatic. No Perez signs noted. No raccoon eyes noted Eyes: PERRLA. EOMI. Conjunctiva and sclera normal. Eyelids normal. ENT: TM's Normal. Pharynx normal. Uvula midline. Dry mucous membranes. No trismus noted. No drooling noted. No muffled voice noted. Neck: Normal inspection. Neck supple. FROM. No adenopathy. Thyroid Normal. No meningeal signs. No neck mass noted. CVS: Normal heart rate and rhythm. Heart sound normal. No murmurs noted. Pulses normal throughout. Respiratory: No respiratory distress. Painless inspiration. Breath sounds normal. No wheezes/rales/rhonchi noted. Chest nontender. No accessory muscle usage noted or decreased air movement noted. Abdomen: Soft and nontender. Bowel sounds normal in all 4 quadrants. No distention noted. No organomegaly noted. No visible injury noted. Back: No CVA tenderness. Full range of motion noted. Skin: Skin warm and dry. Normal skin color. Normal skin turgor. No rashes/lesions/lacerations noted. Extremities: No lower extremity edema. Extremities exhibit normal range of motion. Extremities nontender. Neuro: Oriented X 3. Cranial nerve exam: II-XII are grossly intact No motor deficit. No sensory deficit. Reflexes normal. Course Course Course Narrative: Rapid medical examination performed in triage by Collette Condon PA-C. Patient is a 64 year old assigned male at presenting to the emergency department with a cough and vomiting. Patient states that he was recently seen for the cough and diarrhea for which he was given Azithromycin and finished but he continues to have vomiting, cough, and feel generally unwell. Detailed physical exam and review of systems are deferred to the triage clinician. Labs ordered. Patient placed back in the waiting room pending room availability and results. Reevaluation(s) Reevaluation #1: Gastroenteritis, hypomagnesemia, dehydration, patient's symptoms started before using the Zithromax for upper respiratory infection by his PCP await for stool culture to test for C diff, will cover was 1 empirical vancomycin orally. Because the severity of the symptoms and hypomagnesemia patient do not feel better will hospitalize the patient for IV hydration. Time: 14:28 Medications Administered Discontinued Medications Generic Name Dose Route Start Last Admin Trade Name Genaro PRN Reason Stop Dose Admin Famotidine 20 mg 07/01/25 13:06 07/01/25 14:12 Famotidine/Pf 20 Mg/2 Ml Vial IVPUSH 07/01/25 13:07 20 mg ONCE ONE Administration Sodium Chloride 1,000 mls @ 999 mls/hr 07/01/25 12:15 07/01/25 13:33 Ns IV 07/01/25 13:15 Infused .Q1H1M [facility] Infusion Magnesium Sulfate/Dextrose 1 gm in 100 mls @ 100 mls/hr 07/01/25 12:15 07/01/25 13:32 Magnesium Sulfate/D5w IV 07/01/25 13:14 Infused ONCE ONE Infusion Iohexol 85 ml 07/01/25 13:21 07/01/25 13:21 Iohexol 350 Mg/Ml 75 Ml Infus..Btl IV 07/01/25 13:22 85 ml ONCE ONE Administration Ondansetron HCl 4 mg 07/01/25 12:15 07/01/25 12:32 Ondansetron Hcl 4 Mg/2 Ml Vial IVPUSH 07/01/25 12:16 4 mg ONCE ONE Administration Sucralfate 1 gm 07/01/25 13:06 07/01/25 14:12 Sucralfate Oral Suspension 1 Gm/10 Ml Oral.Susp PO 07/01/25 13:07 1 gm ONCE ONE Administration Medical Decision Making Differential Diagnosis Differential Diagnoses: The differential diagnosis associated with the presentation includes (Dehydration, electrolyte derangement, severe anemia, C diff, colitis, diverticulitis, small-bowel obstruction.) Admission/Observation Consideration of admission/observation: Escalation of care including admission/observation considered Consult Healthcare Provider Management of the patient was discussed with: Hospitalist (Becka Saha) Lab Data MDM Lab Attestation statement: I reviewed the patient's lab results. 07/01/25 11:33 07/01/25 11:33 Labs: Lab Results 07/01/25 Range/Units 11:33 WBC 8.3 (4.8-10.8) X10*3/uL RBC 4.97 (4.60-5.80) X10*6/uL Hgb 14.9 (14.0-18.0) g/dl Hct 43.6 (42.0-52.0) % MCV 87.7 (80.0-98.0) fL MCH 30.0 (27.0-33.0) pg MCHC 34.2 (31.0-36.0) g/dl RDW 12.3 (11.0-16.0) % Plt Count 167 (160-400) X10*3/uL MPV 10.9 (9.4-12.4) fL Immature Gran % (Auto) 0.4 (0.0-0.4) % Neut % (Auto) 73.3 H (45-73) % Lymph % (Auto) 18.5 L (20-40) % [place] % (Auto) 5.5 (2-11) % Eos % (Auto) 1.7 (0-4) % Baso % (Auto) 0.6 (0-2) % Lymph # (Auto) 1.5 (1.2-4.9) X10*3/uL [place] # (Auto) 0.5 (0.1-1.2) X10*3/uL Eos # (Auto) 0.1 (0.0-0.4) X10*3/uL Baso # (Auto) 0.1 (0.0-0.2) X10*3/uL Abs Immat Gran (auto) 0.03 (0.00-0.03) X10*3/uL Absolute Neuts (auto) 6.1 (2.0-8.3) x10*3/uL Absolute Nucleated RBC 0.000 (0.0-0.012) X10*3/uL Nucleated RBC % (auto) 0.0 (0.0-0.2) /100WBC Sodium 143 (135-145) mmol/L Potassium 3.4 (3.3-5.1) mmol/L Chloride 101 (96-108) mmol/L Carbon Dioxide 27 (22-29) mmol/L Anion Gap 18 (12-20) BUN 13 (9-16) mg/dL Creatinine 1.07 (0.5-1.4) mg/dL Estim Creat Clear Calc 68.8 Estimated GFR > 60 Random Glucose 168 H (60-115) mg/dL Calcium 9.8 (8.4-10.2) mg/dL Magnesium 1.4 L* (1.6-2.6) mg/dL Total Bilirubin 0.7 (0.0-1.0) mg/dL AST 28 (5-37) U/L ALT 24 (0-40) U/L Alkaline Phosphatase 106 (39-117) U/L Total Protein 7.5 (6.5-8.0) g/dL Albumin 4.9 (3.5-5.0) g/dL COVID-19 (GANGA) Negative (Negative) COVID-19 Clin Com See Note Influenza Type A (ARELI) Negative (Negative) Influenza Type B (ARELI) Negative (Negative) Influenza A & B Note See Note Independent Interpretation I performed an independent interpretation of an: Plain X-Ray (Chest: No acute findings.) and CT Scan (Abdomen pelvis: No acute findings.) Radiology Impression Discussion of test interpretation with radiology: I have reviewed the radiologist's reading. Discharge Plan Discharge Clinical Impression: Gastroenteritis, Hypomagnesemia, Dehydration Patient Disposition: Admitted As Inpatient
[2025-07-01 11:40] LABS: MANUAL DIFF FLAG NO
[2025-07-01 11:42] LABS: Hematocrit 43.6 % (42.0-52.0); Hemoglobin 14.9 g/dl (14.0-18.0); Imm Gran Abs Auto 0.03 X10*3/uL (0.00-0.03); Imm Gran Pct Auto 0.4 % (0.0-0.4); Lymphocytes Absolute Auto 1.5 X10*3/uL (1.2-4.9); Mean Corpuscular HGB Conc 34.2 g/dl (31.0-36.0); Mean Corpuscular Hemoglobin 30.0 pg (27.0-33.0); Mean Corpuscular Volume 87.7 fL (80.0-98.0); NRBC Abs Auto 0.000 X10*3/uL (0.0-0.012); NRBC Pct Auto 0.0 /100WBC (0.0-0.2); Platelet Count 167 X10*3/uL (160-400); Red Blood Count 4.97 X10*6/uL (4.60-5.80); White Blood Count 8.3 X10*3/uL (4.8-10.8)
[2025-07-01 11:57] LABS: COVID-19 Test Negative (Negative); IDNOW Serial# 152EDE1D
--- NOTE | 2025-07-01 12:00 | PC.NURSE ---
patient a&ox3, iv inserted, labs drawn, pt aware we need a stool sample, rr equal/non labored, denies abdominal pain at this time, call price within reach, plan of care ongoing
[2025-07-01 12:04] LABS: Alanine Aminotransferase 24 U/L (0-40); Albumin Level 4.9 g/dL (3.5-5.0); Alkaline Phosphatase 106 U/L (39-117); Anion Gap 18 (12-20); Aspartate Amino Transferase 28 U/L (5-37); Blood Urea Nitrogen 13 mg/dL (9-16); Calcium 9.8 mg/dL (8.4-10.2); Carbon Dioxide 27 mmol/L (22-29); Chloride 101 mmol/L (96-108); Creatinine Clr Calc Pharmacy 68.8; Estimated Glomerular Filt Rate > 60; Magnesium 1.4 mg/dL (1.6-2.6); Potassium 3.4 mmol/L (3.3-5.1); Sodium 143 mmol/L (135-145); Total Protein 7.5 g/dL (6.5-8.0)
[2025-07-01 12:12] LABS: IDNOW Serial# 58CA691E; Influenza B2 Negative (Negative)
[2025-07-01] MEDS: iohexoL 350 MG/ML 75 ML INFUS..BTL 85 ML IV (13:21)
--- NOTE | 2025-07-01 13:40 | PC.NURSE ---
patient medicated per order
--- NOTE | 2025-07-01 13:45 | PC.NURSE ---
chest xr performed, orthostats performed
--- NOTE | 2025-07-01 14:10 | PC.NURSE ---
pt returned from ct
[2025-07-01] MEDS: Sucralfate Oral Suspension 1 GM/10 ML ORAL.SUSP PO (14:12)
--- NOTE | 2025-07-01 14:45 | PM.IMHP ---
History of Present Illness Date of Service: 07/01/25 Chief Complaint: nausea and vomiting 64-year-old man reported that approximately 2 weeks ago developed upper respiratory symptoms including dry cough and stuffy nose. He then developed nausea, vomiting and watery diarrhea. Reports after a few days he was just vomiting bile and having at least 2 episodes a day of watery stools. He reported that he likely lost about 14 lb had not been eating well. He went to see his primary care provider who had started him on azithromycin and he completed the treatment but symptoms continued. Just prior to symptoms started he did report that his primary care provider changed his medications including stopping his glipizide and doubling his metformin. Patient then also reported that a friend of his reported having the same exact symptoms as him. The patient denied fever, chills, recent travel, eating improperly cooked foods. In the ED, Abdominal CT negative for acute abnormality, normal LFTs, no fever leukocytosis. Magnesium 1.4, treated with IV magnesium in the ED. Also was given IV fluids, Pepcid, Zofran, oral vancomycin empirically secondary to diarrhea. Patient replaced on observation for intractable nausea and vomiting and diarrhea. Review of Systems Review of Systems: Denies any recent fever chills or decrease in appetite respiratory denies any shortness of breath or cough cardiovascular denied chest pain gastrointestinal see HPI genitourinary denies any dysuria frequency or hematuria musculoskeletal denies any joint pain or swelling neuropsych denies any weakness or seizures all other systems reviewed are negative [facility] Medical History Meniere disease Diabetes mellitus with coincident hypertension Hypertension Hypothyroidism Diabetes Family History Father No problems noted. Mother No problems noted. Son Substance use disorder Other Mental health disorder Surgical History History of umbilical hernia repair History of cholecystectomy Social History Housing: House Alcohol intake: current Alcohol intake frequency: holidays/special occasions only Patient Tobacco Use Status: Former Tobacco user Tobacco use type: Cigarette Smoked in Last 30 Days: No e-Cigarette/Vaping Use: Never Used Second Hand Smoke Exposure: Yes Use of substances other than those prescribed or required for medical reasons: No Advance Directives: Yes Advance Directives Information Provided: No Advance Directives on File: No Advance Directives Date on File: 07/01/25 Do you have a plan to hurt others: No Plan service: Yes Current occupational status: retired Current occupation: rt hand Cognitive needs: No Hearing needs: No Vision needs: Yes Meds Allergies Allergy/AdvReac Type Severity Reaction Status Date / Time lisinopril (LISINOPRIL) Allergy Severe ANGIOEDEMA, Verified 07/01/25 11:21 hives Active Medications: Current Medications Famotidine (Famotidine/Pf 20 Mg/2 Ml Vial) 20 mg IVPUSH BID [facility] Home Medications ?Medication ?Instructions ?Recorded ?Confirmed ?Last Taken ?Type aspirin 81 mg tablet,delayed 81 mg PO DAILY 07/03/21 07/01/25 Unknown History release (Adult Low Dose Aspirin) finasteride 5 mg tablet 5 mg PO BEDTIME 07/01/25 07/01/25 Unknown History glipizide 5 mg tablet 5 mg PO BEDTIME 07/01/25 07/01/25 Unknown History levothyroxine 50 mcg tablet 50 mcg PO DAILY@0600 07/01/25 07/01/25 Unknown History meclizine 25 mg chewable tablet 25 mg PO DAILY PRN Vertigo 07/01/25 07/01/25 Unknown History omeprazole 20 mg capsule,delayed 20 mg PO DAILY@0630 07/01/25 07/01/25 Unknown History release Physical Exam Vital Signs and Narrative: Vital Signs: Last Vital Signs Temp 97.6 F 07/01/25 11:20 Pulse 98 07/01/25 13:41 Resp 20 07/01/25 11:20 BP 148/82 H 07/01/25 13:41 Pulse Ox 95 07/01/25 11:20 O2 Del Method Room Air 07/01/25 11:20 BMI result Body Mass Index 26.4 Appearing in no acute distress head is normocephalic atraumatic eyes pupils are PERRLA sclera is anicteric mouth throat mucous membranes are intact and moist neck is supple no lymphadenopathy, no JVD noted lung sounds are clear to auscultation heart regular rate rhythm, clear S1, S2 positive bowel sounds, abdomen is soft, nontender neuro patient is alert x3, no focal deficits Results Labs 07/01/25 11:33 07/01/25 11:33 Labs: Laboratory Results - last 24 hr 07/01/25 11:33 MCV 87.7 MCH 30.0 MCHC 34.2 RDW 12.3 Plt Count 167 MPV 10.9 Immature Gran % (Auto) 0.4 Neut % (Auto) 73.3 H Lymph % (Auto) 18.5 L [place] % (Auto) 5.5 Eos % (Auto) 1.7 Baso % (Auto) 0.6 Lymph # (Auto) 1.5 [place] # (Auto) 0.5 Eos # (Auto) 0.1 Baso # (Auto) 0.1 Abs Immat Gran (auto) 0.03 Absolute Neuts (auto) 6.1 Absolute Nucleated RBC 0.000 Nucleated RBC % (auto) 0.0 Anion Gap 18 Estim Creat Clear Calc 68.8 Estimated GFR > 60 Random Glucose 168 H Calcium 9.8 Magnesium 1.4 L* Total Bilirubin 0.7 AST 28 ALT 24 Alkaline Phosphatase 106 Total Protein 7.5 Albumin 4.9 COVID-19 (GANGA) Negative COVID-19 Clin Com See Note Influenza Type A (ARELI) Negative Influenza Type B (ARELI) Negative Influenza A & B Note See Note Assessment and Plan (1) Gastroenteritis: Status: Acute (2) Diabetes mellitus with coincident hypertension: Status: Acute Plan 64 year old man placed on observation for intractable nausea and vomiting with abdominal pain Intractable Nausea, vomiting and diarrhea Recent antibiotic use, ? Cdiff vs viral gastroenteritis illness Abd ct neg for acute abnormalities normal LFT's Continue IV fluids Clear liquid diet for now and advance as tolerated stool studies and cdiff pending IV pepcid If no improvement consider Gastroenterology consultation Hypomagnesemia secondary to GI lossed s/p IV magnesium recheck in the am Hypertension stable continue amlodipine hold HCTZ for now due to GI loses DM 2 SS, clear diet for now hold metformin and glipizide due to GI symptoms Hypothyroidism Continue levothyroxine Hyperlipidemia Hold statin and aspirin due to GI symptoms and possible gastroenteritis BPH Continue finasteride and terazosin DVT prophylaxis with Lovenox Full code Quality Stroke Does the patient have a stroke diagnosis?: No VTE Prior VTE?: No VTE Risk Level:: Medical - moderate - high VTE Device Contraindication: Treatment Not Indicated VTE Drug Contraindication: N/A - Med Ordered
[2025-07-01] MEDS: Lactated Ringers 1,000 ML 100 ML IVCONT (15:39)
--- NOTE | 2025-07-01 15:44 | PC.NURSE ---
patient medicated per order
--- NOTE | 2025-07-01 15:45 | PHA.MEDREC ---
Pharmacy Consult ? Medication Reconciliation Pharmacy has completed the medication reconciliation. Patient had a medication list with them.
--- NOTE | 2025-07-01 15:45 | HO.NURTONUR ---
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 IVF just hung LR @ 100ml/hr, on a clear liquid diet. he has been unable to give us a stool sample- he is aware he needs to give one.
[2025-07-01 22:09] LABS: Glucose, Whole Blood 113 mg/dL (60-115)
[2025-07-01 22:51] LABS: Appearance Urine Clear; Glucose Urine UA Negative (Negative); PH 7.5 (5.0-9.0); Specific Gravity - Urine 1.020 (1.005-1.025)
--- NOTE | 2025-07-02 | ECG_ITS ---
Test Reason : qtc Blood Pressure : */* mmHG Vent. Rate : 64 BPM Atrial Rate : 64 BPM P-R Int : 178 ms QRS Dur : 136 ms QT Int : 440 ms P-R-T Axes : -15 -43 25 degrees QTcB Int : 453 ms Normal sinus rhythm with sinus arrhythmia Left axis deviation Right bundle branch block Minimal voltage criteria for LVH, may be normal variant ( R in aVL ) Abnormal ECG When compared with ECG of 04-Dec-2015 16:56, Vent. rate has decreased by 43 bpm Right bundle branch block is now Present Referred By: Brittany Dexter Electronically Signed By: Matthieu Benavidez
[2025-07-02] MEDS: Lactated Ringers 1,000 ML 100 ML IVCONT ×2 (00:50→19:46)
[2025-07-02 03:39] VITALS: BP 145/68; PULSE 63; RESP 18; TEMP 36; O2SAT 98
[2025-07-02 06:25] LABS: Hematocrit 35.8 % (42.0-52.0); Hemoglobin 12.2 g/dl (14.0-18.0); Mean Corpuscular HGB Conc 34.1 g/dl (31.0-36.0); Mean Corpuscular Hemoglobin 30.2 pg (27.0-33.0); Mean Corpuscular Volume 88.6 fL (80.0-98.0); NRBC Abs Auto 0.000 X10*3/uL (0.0-0.012); NRBC Pct Auto 0.0 /100WBC (0.0-0.2); Platelet Count 139 X10*3/uL (160-400); Red Blood Count 4.04 X10*6/uL (4.60-5.80); White Blood Count 5.0 X10*3/uL (4.8-10.8)
[2025-07-02 06:50] LABS: Anion Gap 12 (12-20); Blood Urea Nitrogen 10 mg/dL (9-16); Calcium 8.7 mg/dL (8.4-10.2); Carbon Dioxide 28 mmol/L (22-29); Chloride 106 mmol/L (96-108); Creatinine Clr Calc Pharmacy 79.1; Estimated Glomerular Filt Rate > 60; Magnesium 1.6 mg/dL (1.6-2.6); Potassium 2.9 mmol/L (3.3-5.1); Sodium 143 mmol/L (135-145)
[2025-07-02] MEDS: Potassium Chloride Packet 20 MEQ PACKET 40 MEQ PO ×2 (07:38→16:57)
[2025-07-02 07:47] VITALS: BP 152/72; PULSE 66; RESP 18; TEMP 36.2; O2SAT 99
[2025-07-02 08:00] LABS: Glucose, Whole Blood 113 mg/dL (60-115)
[2025-07-02] MEDS: Magnesium Sulfate/H2O 2 GM/50 ML PIGGYBACK IV (09:38)
--- NOTE | 2025-07-02 10:35 | MHC.CM.PN ---
IMM DELIVERED PT LIVES WITH SPOUSE AND IS FUNCTIONALLY INDEPENDENT. PT WALKS 7 MILES DAILY. NO DME OR SERVICES. + COPY OF HCP AT HOME. PCP CAROLE CASTANEDA DP: HOME, NO SERVICES IS THE GOAL. PT'S SPOUSE WILL DRIVE. CM WILL CONTINUE TO FOLLOW FOR ANY CHANGE TO DC PLAN/NEEDS.
[2025-07-02 11:25] LABS: Glucose, Whole Blood 125 mg/dL (60-115)
[2025-07-02 11:26] VITALS: BP 141/78; PULSE 61; RESP 20; TEMP 36.1; O2SAT 98
[2025-07-02 11:33] LABS: Reflex Lactate? Lactic Acid Added
[2025-07-02] MEDS: Potassium Chloride/H20 10 MEQ/100 ML PIGGYBACK 50 MEQ IV ×4 (11:33→16:48)
[2025-07-02 12:52] LABS: Anion Gap 13 (12-20); Carbon Dioxide 26 mmol/L (22-29); Chloride 106 mmol/L (96-108); Potassium 3.0 mmol/L (3.3-5.1); Sodium 142 mmol/L (135-145)
[2025-07-02 12:56] LABS: ~Lactic Acid-LAB USE ONLY 0.9 mmol/L (0.5-2.0)
--- NOTE | 2025-07-02 14:36 | HO.PM.IMPN ---
Subjective Subjective Date of Service: 07/02/25 Interval History: Pt seen this am, at bedside, pt states that he feels slightly better today and his nausea and vomiting are better now, he has not been able to keep anything down for a week now, does state that other ppl are also sick after they all ate from the same place, CT abd -ve, Review of Systems -ve except as stated above Physical Exam Exam: Exam: Appearing in no acute distress mouth throat mucous membranes are intact and moist lung sounds are clear to auscultation, on RA heart RRR positive bowel sounds, abdomen is soft, nontender neuro patient is alert x3, no focal deficits Vital Signs: Vital Signs: Last Vital Signs Temp 97.0 F 07/02/25 11:26 Pulse 61 07/02/25 11:26 Resp 20 07/02/25 11:26 BP 141/78 H 07/02/25 11:26 Pulse Ox 98 07/02/25 11:26 O2 Del Method Room Air 07/02/25 11:26 BMI result Body Mass Index 26.4 Objective Data Active Medications Acetaminophen (Acetaminophen 325 Mg Tablet) 650 mg PO Q6H PRN PRN Reason: Pain, Mild 1-3,fever,headache Amlodipine Besylate (Amlodipine Besylate 5 Mg Tablet) 5 mg PO DAILY [facility]; Protocol Last Admin: 07/02/25 07:42 Dose: 5 mg Documented By: LYLE Calcium Carbonate (Calcium Carbonate 750 Mg Tab.Chew) 750 mg PO Q4H PRN PRN Reason: Heartburn Dextrose (Dextrose 50 % 25 Gm/50 Ml Syringe) 25 gm IVPUSH Q15M PRN; Protocol PRN Reason: per Hypoglycemia Standing Ord. Doxazosin Mesylate (Doxazosin Mesylate 2 Mg Tablet) 4 mg PO BEDTIME [facility] Last Admin: 07/01/25 20:42 Dose: 4 mg Documented By: HEMA Enoxaparin Sodium (Enoxaparin Sodium 40 Mg/0.4 Ml Syringe) 40 mg SUBCUT Q24H [facility] Last Admin: 07/01/25 15:38 Dose: 40 mg Documented By: LISA Famotidine (Famotidine/Pf 20 Mg/2 Ml Vial) 20 mg IVPUSH BID [facility] Last Admin: 07/02/25 07:38 Dose: 20 mg Documented By: LYLE Finasteride (Finasteride 5 Mg Tablet) 5 mg PO BEDTIME PENDING SALE TO [facility] Last Admin: 07/01/25 20:42 Dose: 5 mg Documented By: HEMA Glucose (Glucose Gel 15 Gm Gel..Gram.) 15 gm PO Q15M PRN; Protocol PRN Reason: per Hypoglycemia Standing Ord. Lactated Ringer's (Lr) 1,000 mls @ 100 mls/hr IVCONT .Q10H PENDING SALE TO [facility] Last Infusion: 07/02/25 11:59 Dose: Infused Documented By: LYLE Insulin Human Lispro (Insulin Lispro 100 Unit/Ml 3 Ml Vial) 0 unit SUBCUT QIDACHS PENDING SALE TO [facility]; Protocol Last Admin: 07/02/25 11:49 Dose: Not Given Documented By: LYLE Non-Admin Reason: No Insulin Coverage Levothyroxine Sodium (Levothyroxine Sodium 50 Mcg Tablet) 50 mcg PO DAILY@0600 [facility]END[facility] S[facility] TO [facility] Last Admin: 07/02/25 05:59 Dose: 50 mcg Documented By: HEMA Magnesium Hydroxide (Milk Of Magnesia 30 Ml Oral.Susp) 30 ml PO DAILY PRN PRN Reason: Constipation Meclizine HCl (Meclizine Hcl 25 Mg Tablet) 25 mg PO DAILY PRN PRN Reason: Vertigo Melatonin (Melatonin 3 Mg Tablet) 6 mg PO BEDTIME PRN PRN Reason: Insomnia Ondansetron HCl (Ondansetron Hcl 4 Mg/2 Ml Vial) 4 mg IVPUSH Q8H PRN PRN Reason: Nausea and Vomiting Last Admin: 07/02/25 12:03 Dose: 4 mg Documented By: LYLE Sodium Chloride (0.9 % Sodium Chloride Flush 3 Ml Syringe) 3 ml IVFLUSH QSHIFT [facility]END[facility] S[facility] TO [facility] Last Admin: 07/02/25 07:38 Dose: Not Given Documented By: LYLE Non-Admin Reason: IV Running Labs 07/02/25 05:42 07/02/25 12:32 Labs: Laboratory Results - last 24 hr 07/01/25 07/01/25 07/02/25 22:05 22:10 05:42 MCV 88.6 MCH 30.2 MCHC 34.1 RDW 12.2 Plt Count 139 L MPV 11.1 Absolute Nucleated RBC 0.000 Nucleated RBC % (auto) 0.0 Hold Purple Top Anion Gap 12 Estim Creat Clear Calc 79.1 Estimated GFR > 60 POC Glucose 113 Random Glucose 109 Lactic Acid Lactic Acid F/U @ 2Hr Calcium 8.7 D Magnesium 1.6 Urine Color Yellow Urine Appearance Clear Urine pH 7.5 Ur Specific [place] 1.020 Urine Protein Negative Urine Glucose (UA) Negative Urine Ketones Negative Urine Blood Negative Urine Nitrite Negative Ur Leukocyte Esterase Negative 07/02/25 07/02/25 07/02/25 07:55 09:27 09:31 MCV MCH MCHC RDW Plt Count MPV Absolute Nucleated RBC Nucleated RBC % (auto) Hold Purple Top SEE NOTE Anion Gap Estim Creat Clear Calc Estimated GFR POC Glucose 113 Random Glucose Lactic Acid 2.1 H* Lactic Acid F/U @ 2Hr Calcium Magnesium Urine Color Urine Appearance Urine pH Ur Specific [place] Urine Protein Urine Glucose (UA) Urine Ketones Urine Blood Urine Nitrite Ur Leukocyte Esterase 07/02/25 07/02/25 11:09 12:32 MCV MCH MCHC RDW Plt Count MPV Absolute Nucleated RBC Nucleated RBC % (auto) Hold Purple Top Anion Gap 13 Estim Creat Clear Calc Estimated GFR POC Glucose 125 H Random Glucose Lactic Acid Lactic Acid F/U @ 2Hr 0.9 Calcium Magnesium Urine Color Urine Appearance Urine pH Ur Specific [place] Urine Protein Urine Glucose (UA) Urine Ketones Urine Blood Urine Nitrite Ur Leukocyte Esterase Assessment and Plan (1) Hypertension: Status: Acute (2) Diabetes: Status: Acute (3) Hypothyroidism: Status: Acute (4) Gastroenteritis: Status: Acute (5) Vomiting: Status: Acute Plan 64 year old man placed on observation for intractable nausea and vomiting with abdominal pain Intractable Nausea, vomiting likely gastroenteritis diarrhea resolved Abd ct -ve lfts wnl CLD and advance as tolerated IVF famotidine IV Hypomagnesemia secondary to GI lossed s/p IV magnesium monitor and replete Hypertension stable continue amlodipine hold HCTZ for now due to GI loses DM 2 SS, clear diet for now hold metformin and glipizide due to GI symptoms Hypothyroidism Continue levothyroxine Hyperlipidemia Hold statin and aspirin due to GI symptoms and possible gastroenteritis BPH Continue finasteride and doxazosin DVT prophylaxis with Lovenox Full code Quality Stroke Does the patient have a stroke diagnosis?: No VTE Prior VTE?: No VTE Risk Level:: Medical - moderate - high VTE Device Contraindication: Treatment Not Indicated VTE Drug Contraindication: N/A - Med Ordered
[2025-07-02 15:36] VITALS: BP 160/80; PULSE 79; RESP 18; TEMP 36.3; O2SAT 99
[2025-07-02 16:34] LABS: Glucose, Whole Blood 172 mg/dL (60-115)
[2025-07-02 20:00] VITALS: BP 141/78; PULSE 74; RESP 18; TEMP 36.4; O2SAT 97
[2025-07-02] MEDS: 0.9 % Sodium Chloride Flush 3 ML SYRINGE IVFLUSH (20:27)
[2025-07-02 20:34] LABS: Glucose, Whole Blood 149 mg/dL (60-115)
[2025-07-03 03:43] VITALS: BP 158/89; PULSE 62; RESP 18; TEMP 36.6; O2SAT 98
[2025-07-03] MEDS: Lactated Ringers 1,000 ML 100 ML IVCONT (05:15)
[2025-07-03 06:45] LABS: Alanine Aminotransferase 22 U/L (0-40); Albumin Level 3.9 g/dL (3.5-5.0); Alkaline Phosphatase 80 U/L (39-117); Anion Gap 11 (12-20); Aspartate Amino Transferase 26 U/L (5-37); Blood Urea Nitrogen 9 mg/dL (9-16); Calcium 8.8 mg/dL (8.4-10.2); Carbon Dioxide 27 mmol/L (22-29); Chloride 109 mmol/L (96-108); Creatinine Clr Calc Pharmacy 85.6; Estimated Glomerular Filt Rate > 60; Potassium 3.8 mmol/L (3.3-5.1); Sodium 143 mmol/L (135-145); Total Protein 6.0 g/dL (6.5-8.0)
[2025-07-03 07:35] VITALS: BP 158/74; PULSE 65; RESP 16; TEMP 36.6; O2SAT 98
[2025-07-03 07:52] LABS: Glucose, Whole Blood 140 mg/dL (60-115)
[2025-07-03 11:16] LABS: Glucose, Whole Blood 198 mg/dL (60-115)
[2025-07-03] MEDS: 0.9 % Sodium Chloride Flush 3 ML SYRINGE IVFLUSH ×2 (14:24→21:43)
--- NOTE | 2025-07-03 14:43 | MHC.CM.PN ---
EMR REVIEWED. PT IS SLIGHTLY IMPROVED TODAY. DP: REMAINS HOME, NO SERVICES ANTICIPATED. CM WILL CONTINUE TO FOLLOW.
[2025-07-03 15:06] LABS: CDiff Gene PCR NEGATIVE (Negative)
[2025-07-03 15:40] VITALS: BP 160/81; PULSE 63; RESP 18; TEMP 36.6; O2SAT 96
--- NOTE | 2025-07-03 16:02 | HO.PM.IMPN ---
Subjective Subjective Date of Service: 07/03/25 Interval History: Pt seen this am, states he feels worse in am, nauseous and feeling ill, states that as the days goes by he starts to feel better but he is still not back to his baseline. Review of Systems -ve except as stated above Physical Exam Exam: Exam: Appearing in no acute distress mouth throat mucous membranes are intact and moist lung sounds are clear to auscultation, on RA heart RRR positive bowel sounds, abdomen is soft, nontender neuro patient is alert x3, no focal deficits Vital Signs: Vital Signs: Last Vital Signs Temp 97.8 F 07/03/25 15:40 Pulse 63 07/03/25 15:40 Resp 18 07/03/25 15:40 BP 160/81 H 07/03/25 15:40 Pulse Ox 96 07/03/25 15:40 O2 Del Method Room Air 07/03/25 15:40 BMI result Body Mass Index 26.4 Objective Data Active Medications Acetaminophen (Acetaminophen 325 Mg Tablet) 650 mg PO Q6H PRN PRN Reason: Pain, Mild 1-3,fever,headache Last Admin: 07/03/25 09:13 Dose: 650 mg Documented By: LYLE Amlodipine Besylate (Amlodipine Besylate 5 Mg Tablet) 5 mg PO DAILY [facility]; Protocol Last Admin: 07/03/25 08:52 Dose: 5 mg Documented By: LYLE Calcium Carbonate (Calcium Carbonate 750 Mg Tab.Chew) 750 mg PO Q4H PRN PRN Reason: Heartburn Dextrose (Dextrose 50 % 25 Gm/50 Ml Syringe) 25 gm IVPUSH Q15M PRN; Protocol PRN Reason: per Hypoglycemia Standing Ord. Doxazosin Mesylate (Doxazosin Mesylate 2 Mg Tablet) 4 mg PO BEDTIME [facility] Last Admin: 07/02/25 20:26 Dose: 4 mg Documented By: BORADHAQC Enoxaparin Sodium (Enoxaparin Sodium 40 Mg/0.4 Ml Syringe) 40 mg SUBCUT Q24H [facility] Last Admin: 07/03/25 14:23 Dose: 40 mg Documented By: LYLE Famotidine (Famotidine/Pf 20 Mg/2 Ml Vial) 20 mg IVPUSH BID [facility] Last Admin: 07/03/25 08:52 Dose: 20 mg Documented By: LYLE Finasteride (Finasteride 5 Mg Tablet) 5 mg PO BEDTIME [facility] Last Admin: 07/02/25 20:26 Dose: 5 mg Documented By: JUN Glucose (Glucose Gel 15 Gm Gel..Gram.) 15 gm PO Q15M PRN; Protocol PRN Reason: per Hypoglycemia Standing Ord. Insulin Human Lispro (Insulin Lispro 100 Unit/Ml 3 Ml Vial) 0 unit SUBCUT QIDACHS [facility]; Protocol Last Admin: 07/03/25 12:24 Dose: 2 unit Documented By: LYLE Levothyroxine Sodium (Levothyroxine Sodium 50 Mcg Tablet) 50 mcg PO DAILY@0600 [facility] Last Admin: 07/03/25 05:15 Dose: 50 mcg Documented By: JUN Magnesium Hydroxide (Milk Of Magnesia 30 Ml Oral.Susp) 30 ml PO DAILY PRN PRN Reason: Constipation Meclizine HCl (Meclizine Hcl 25 Mg Tablet) 25 mg PO DAILY PRN PRN Reason: Vertigo Melatonin (Melatonin 3 Mg Tablet) 6 mg PO BEDTIME PRN PRN Reason: Insomnia Last Admin: 07/02/25 20:27 Dose: 6 mg Documented By: JUN Ondansetron HCl (Ondansetron Hcl 4 Mg/2 Ml Vial) 4 mg IVPUSH Q8H PRN PRN Reason: Nausea and Vomiting Last Admin: 07/03/25 14:30 Dose: 4 mg Documented By: LYLE Sodium Chloride (0.9 % Sodium Chloride Flush 3 Ml Syringe) [facility] Last Admin: 07/03/25 14:24 Dose: 3 ml Documented By: LYLE Labs 07/02/25 05:42 07/03/25 06:15 Labs: Laboratory Results - last 24 hr 07/02/25 07/02/25 07/03/25 16:27 20:25 06:15 Hold Purple Top SEE NOTE Anion Gap 11 L Estim Creat Clear Calc 85.6 Estimated GFR > 60 POC Glucose 172 H 149 H Random Glucose 139 H Calcium 8.8 Total Bilirubin 0.5 AST 26 ALT 22 Alkaline Phosphatase 80 Total Protein 6.0 L Albumin 3.9 C. difficile Tox B Gene 07/03/25 07/03/25 07/03/25 07:36 11:07 13:54 Hold Purple Top Anion Gap Estim Creat Clear Calc Estimated GFR POC Glucose 140 H 198 H Random Glucose Calcium Total Bilirubin AST ALT Alkaline Phosphatase Total Protein Albumin C. difficile Tox B Gene NEGATIVE Assessment and Plan (1) Hypertension: Status: Acute (2) Diabetes: Status: Acute (3) Hypothyroidism: Status: Acute (4) Vomiting: Status: Acute (5) Gastroenteritis: Status: Acute Plan 64 year old man placed on observation for intractable nausea and vomiting with abdominal pain Intractable Nausea, vomiting likely gastroenteritis diarrhea resolved Abd ct -ve lfts wnl regular diet IVF dc today famotidine IV Hypomagnesemia secondary to GI loss s/p IV magnesium monitor and replete Hypertension stable continue amlodipine hold HCTZ for now due to GI loses DM 2 SS, clear diet for now hold metformin and glipizide due to GI symptoms Hypothyroidism Continue levothyroxine Hyperlipidemia Hold statin and aspirin due to GI symptoms and possible gastroenteritis BPH Continue finasteride and doxazosin DVT prophylaxis with Lovenox Full code Quality Stroke Does the patient have a stroke diagnosis?: No VTE Prior VTE?: No VTE Risk Level:: Medical - moderate - high VTE Device Contraindication: Treatment Not Indicated VTE Drug Contraindication: N/A - Med Ordered
[2025-07-03 16:10] LABS: Glucose, Whole Blood 117 mg/dL (60-115)
[2025-07-03 16:35] LABS: Magnesium 1.9 mg/dL (1.6-2.6)
[2025-07-03 19:20] VITALS: BP 157/81; PULSE 69; RESP 18; TEMP 37.1; O2SAT 96
[2025-07-03 20:23] LABS: Glucose, Whole Blood 159 mg/dL (60-115)
[2025-07-04 04:00] VITALS: BP 121/86; PULSE 70; RESP 16; TEMP 36.1; O2SAT 98
[2025-07-04 06:28] LABS: Alanine Aminotransferase 26 U/L (0-40); Albumin Level 3.9 g/dL (3.5-5.0); Alkaline Phosphatase 78 U/L (39-117); Anion Gap 12 (12-20); Aspartate Amino Transferase 29 U/L (5-37); Blood Urea Nitrogen 8 mg/dL (9-16); Calcium 9.3 mg/dL (8.4-10.2); Carbon Dioxide 26 mmol/L (22-29); Chloride 108 mmol/L (96-108); Creatinine Clr Calc Pharmacy 78.3; Estimated Glomerular Filt Rate > 60; Potassium 3.3 mmol/L (3.3-5.1); Sodium 143 mmol/L (135-145); Total Protein 6.1 g/dL (6.5-8.0)
--- NOTE | 2025-07-04 07:34 | PC.NURSE ---
End of Shift Note [id number] 07/04/25 Pt Alert oriented x4. One episode of Nausea noted at beginning of shift, Zofran providing good effect in alleviating Nausea and allowing patient to sleep. Patient independent in ambulation and toileting. Pt utilizing call price appropriately. Patient rested quietly with eyes closed throughout the shift with stable VS.
[2025-07-04] MEDS: 0.9 % Sodium Chloride Flush 3 ML SYRINGE IVFLUSH ×3 (07:46→20:24)
[2025-07-04 07:50] LABS: Glucose, Whole Blood 125 mg/dL (60-115)
[2025-07-04 07:58] VITALS: BP 147/80; PULSE 70; RESP 20; TEMP 36.1; O2SAT 96
[2025-07-04] MEDS: Bismuth Subsalicylate Liquid 524 MG/30 ML ORAL.SUSP 262 MG PO (09:06)
[2025-07-04 11:06] LABS: E. coli EAEC Not Detected (Not Detect.); E. coli EPEC Not Detected (Not Detect.); E. coli ETEC Not Detected (Not Detect.); E. coli STEC Not Detected (Not Detect.); Shigella sp./EIEC Not Detected (Not Detect.)
[2025-07-04 11:43] LABS: Glucose, Whole Blood 140 mg/dL (60-115)
--- NOTE | 2025-07-04 14:26 | HO.PM.IMPN ---
Subjective Subjective Date of Service: 07/04/25 Interval History: Patient seen examined at bedside this morning, patient complaining of persistent nausea and vomiting, mentions that his nausea will usually begin after exertion. With prior history of Meniere's disease. Review of Systems Review of Systems: Yes all other systems are reviewed and are negative Physical Exam Exam: Exam: General: AxOx3, No acute distress Head: AT/NC ENT: Moist mucous membranes Neck: supple CVS; RRR, S1 S2 normal Lungs: Clear bilateral breath sounds, no wheezes or crackles Abd: Soft non tender, non distended Ext: No edema and no calf tenderness MSK: moving all 4 limbs Skin: No cyanosis or edema Psych: Cooperative with exam Neurology: no focal deficit Vital Signs: Vital Signs: Last Vital Signs Temp 96.9 F 07/04/25 07:58 Pulse 70 07/04/25 07:58 Resp 20 07/04/25 07:58 BP 147/80 H 07/04/25 07:58 Pulse Ox 96 07/04/25 07:58 O2 Del Method Room Air 07/04/25 07:58 BMI result Body Mass Index 26.4 Objective Data Active Medications Acetaminophen (Acetaminophen 325 Mg Tablet) 650 mg PO Q6H PRN PRN Reason: Pain, Mild 1-3,fever,headache Last Admin: 07/03/25 09:13 Dose: 650 mg Documented By: LYLE Amlodipine Besylate (Amlodipine Besylate 5 Mg Tablet) 5 mg PO DAILY [facility]; Protocol Last Admin: 07/04/25 07:45 Dose: 5 mg Documented By: LYLE Calcium Carbonate (Calcium Carbonate 750 Mg Tab.Chew) 750 mg PO Q4H PRN PRN Reason: Heartburn Last Admin: 07/03/25 19:43 Dose: 750 mg Documented By: SHAHAB Dextrose (Dextrose 50 % 25 Gm/50 Ml Syringe) 25 gm IVPUSH Q15M PRN; Protocol PRN Reason: per Hypoglycemia Standing Ord. Doxazosin Mesylate (Doxazosin Mesylate 2 Mg Tablet) 4 mg PO BEDTIME [facility] Last Admin: 07/03/25 21:02 Dose: 4 mg Documented By: SHAHAB Enoxaparin Sodium (Enoxaparin Sodium 40 Mg/0.4 Ml Syringe) 40 mg SUBCUT Q24H [facility] Last Admin: 07/04/25 13:50 Dose: 40 mg Documented By: LYLE Famotidine (Famotidine/Pf 20 Mg/2 Ml Vial) 20 mg IVPUSH BID [facility] Last Admin: 07/04/25 07:45 Dose: 20 mg Documented By: LYLE Finasteride (Finasteride 5 Mg Tablet) 5 mg PO BEDTIME [facility] Last Admin: 07/03/25 21:02 Dose: 5 mg Documented By: SHAHAB Glucose (Glucose Gel 15 Gm Gel..Gram.) 15 gm PO Q15M PRN; Protocol PRN Reason: per Hypoglycemia Standing Ord. Insulin Human Lispro (Insulin Lispro 100 Unit/Ml 3 Ml Vial) 0 unit SUBCUT QIDACHS [facility]; Protocol Last Admin: 07/04/25 12:21 Dose: Not Given Documented By: LYLE Non-Admin Reason: No Insulin Coverage Levothyroxine Sodium (Levothyroxine Sodium 50 Mcg Tablet) 50 mcg PO DAILY@0600 [facility] Last Admin: 07/04/25 05:54 Dose: 50 mcg Documented By: SHAHAB Magnesium Hydroxide (Milk Of Magnesia 30 Ml Oral.Susp) 30 ml PO DAILY PRN PRN Reason: Constipation Meclizine HCl (Meclizine Hcl 25 Mg Tablet) 25 mg PO DAILY PRN PRN Reason: Vertigo Last Admin: 07/04/25 10:37 Dose: 25 mg Documented By: LYLE Melatonin (Melatonin 3 Mg Tablet) 6 mg PO BEDTIME PRN PRN Reason: Insomnia Last Admin: 07/02/25 20:27 Dose: 6 mg Documented By: MONICAQC Ondansetron HCl (Ondansetron Hcl 4 Mg/2 Ml Vial) 4 mg IVPUSH Q8H PRN PRN Reason: Nausea and Vomiting Last Admin: 07/04/25 09:06 Dose: 4 mg Documented By: LYLE Sodium Chloride (0.9 % Sodium Chloride Flush 3 Ml Syringe) [facility] Last Admin: 07/04/25 13:52 Dose: 3 ml Documented By: LYLE Labs 07/02/25 05:42 07/04/25 05:49 Labs: Laboratory Results - last 24 hr 07/03/25 07/03/25 07/03/25 06:15 13:54 16:03 Anion Gap Estim Creat Clear Calc Estimated GFR POC Glucose 117 H Random Glucose Calcium Magnesium 1.9 Total Bilirubin AST ALT Alkaline Phosphatase Total Protein Albumin Stl C. cayetanensis PCR Not Detected Stool Rotavirus A PCR Not Detected Stl Adenov F 40/41 PCR Not Detected Stool Astrovirus (PCR) Not Detected Stool Campylobacter PCR Not Detected Stool Cryptosporidium PCR Not Detected Stl Sh Tox Pr E STEC PCR Not Detected Stool E coli O157 PCR Not applicable Stl Enterotoxigenic E PCR Not Detected Stool EPEC (PCR) Not Detected Stool EAEC (PCR) Not Detected Stl E. histolytica PCR Not Detected Stool Giardia Lamblia PCR Not Detected Stl P. shigelloides PCR Not Detected Stool Salmonella PCR Not Detected Stool Sapovirus (PCR) Not Detected Stl Shigella/EIEC PCR Not Detected St Y.enterocolitica PCR Not Detected Stool Vibrio (PCR) Not Detected Stl Vibrio cholerae PCR Not Detected Stl Norovirus GI/GII PCR Not Detected C. difficile Tox B Gene NEGATIVE 07/03/25 07/04/25 07/04/25 20:12 05:49 07:39 Anion Gap 12 Estim Creat Clear Calc 78.3 Estimated GFR > 60 POC Glucose 159 H 125 H Random Glucose 119 H Calcium 9.3 Magnesium Total Bilirubin 0.4 AST 29 ALT 26 Alkaline Phosphatase 78 Total Protein 6.1 L Albumin 3.9 Stl C. cayetanensis PCR Stool Rotavirus A PCR Stl Adenov F 40/ PCR Stool Astrovirus (PCR) Stool Campylobacter PCR Stool Cryptosporidium PCR Stl Sh Tox Pr E STEC PCR Stool E coli O157 PCR Stl Enterotoxigenic E PCR Stool EPEC (PCR) Stool EAEC (PCR) Stl E. histolytica PCR Stool Giardia Lamblia PCR Stl P. shigelloides PCR Stool Salmonella PCR Stool Sapovirus (PCR) Stl Shigella/EIEC PCR St Y.enterocolitica PCR Stool Vibrio (PCR) Stl Vibrio cholerae PCR Stl Norovirus GI/GII PCR C. difficile Tox B Gene 07/04/25 11:39 Anion Gap Estim Creat Clear Calc Estimated GFR POC Glucose 140 H Random Glucose Calcium Magnesium Total Bilirubin AST ALT Alkaline Phosphatase Total Protein Albumin Stl C. cayetanensis PCR Stool Rotavirus A PCR Stl Adenov F 40/41 PCR Stool Astrovirus (PCR) Stool Campylobacter PCR Stool Cryptosporidium PCR Stl Sh Tox Pr E STEC PCR Stool E coli O157 PCR Stl Enterotoxigenic E PCR Stool EPEC (PCR) Stool EAEC (PCR) Stl E. histolytica PCR Stool Giardia Lamblia PCR Stl P. shigelloides PCR Stool Salmonella PCR Stool Sapovirus (PCR) Stl Shigella/EIEC PCR St Y.enterocolitica PCR Stool Vibrio (PCR) Stl Vibrio cholerae PCR Stl Norovirus GI/GII PCR C. difficile Tox B Gene Assessment and Plan (1) Vomiting: Status: Acute (2) Diabetes mellitus with coincident hypertension: Status: Acute (3) Meniere disease: Status: Acute (4) Hypertension: Status: Acute (5) Hypothyroidism: Status: Acute (6) BPH w urinary obs/LUTS: Status: Acute Plan Assessment: 64 year old man admitted to hospital for intractable nausea and vomiting, suspected secondary to gastroenteritis, on imaging found to have diverticulosis in duodenum, jejunum and colon. Patient with prior history of Meniere disease. Intractable Nausea, vomiting, to rule out gastroparesis Abdominal CT scan with small hiatal hernia and no acute findings. All labs, no electrolyte abnormalities, negative infectious etiology. We will initiate Reglan for suspected gastroparesis, as well as oral antacid. If no improvement, to consider GI consult, plus/minus MRI given prior history of Meniere's disease Hypertension stable continue amlodipine hold HCTZ for now due to GI loses, will restart once improvement of electrolytes. DM 2 SS, clear diet for now hold metformin and glipizide due to GI symptoms Will order Reglan Hypothyroidism Continue levothyroxine Hyperlipidemia Hold statin and aspirin due to GI symptoms, once improved we will restart BPH Continue finasteride and doxazosin DVT prophylaxis with Lovenox Full code Quality Stroke Does the patient have a stroke diagnosis?: No VTE Prior VTE?: No VTE Risk Level:: Medical - moderate - high VTE Device Contraindication: Treatment Not Indicated VTE Drug Contraindication: N/A - Med Ordered
[2025-07-04 16:26] VITALS: BP 124/70; PULSE 80; RESP 18; TEMP 36.1; O2SAT 96
[2025-07-04 16:39] LABS: Glucose, Whole Blood 116 mg/dL (60-115)
[2025-07-04 17:44] VITALS: BP 147/87; PULSE 79; O2SAT 99
[2025-07-04 19:42] VITALS: BP 132/70; PULSE 83; RESP 18; TEMP 37.1; O2SAT 98
[2025-07-04 19:49] LABS: Glucose, Whole Blood 225 mg/dL (60-115)
[2025-07-05 03:40] VITALS: BP 129/61; PULSE 70; RESP 17; TEMP 36.1; O2SAT 97
[2025-07-05 07:31] LABS: Glucose, Whole Blood 134 mg/dL (60-115)
[2025-07-05 07:34] VITALS: BP 158/76; PULSE 68; RESP 12; TEMP 36.2; O2SAT 94
[2025-07-05 09:18] LABS: MANUAL DIFF FLAG NO
[2025-07-05 09:20] LABS: Hematocrit 39.3 % (42.0-52.0); Hemoglobin 13.5 g/dl (14.0-18.0); Imm Gran Abs Auto 0.02 X10*3/uL (0.00-0.03); Imm Gran Pct Auto 0.4 % (0.0-0.4); Lymphocytes Absolute Auto 1.0 X10*3/uL (1.2-4.9); Mean Corpuscular HGB Conc 34.4 g/dl (31.0-36.0); Mean Corpuscular Hemoglobin 30.3 pg (27.0-33.0); Mean Corpuscular Volume 88.3 fL (80.0-98.0); NRBC Abs Auto 0.000 X10*3/uL (0.0-0.012); NRBC Pct Auto 0.0 /100WBC (0.0-0.2); Platelet Count 164 X10*3/uL (160-400); Red Blood Count 4.45 X10*6/uL (4.60-5.80); White Blood Count 5.2 X10*3/uL (4.8-10.8)
[2025-07-05 09:36] LABS: Alanine Aminotransferase 65 U/L (0-40); Albumin Level 4.3 g/dL (3.5-5.0); Alkaline Phosphatase 89 U/L (39-117); Anion Gap 14 (12-20); Aspartate Amino Transferase 60 U/L (5-37); Blood Urea Nitrogen 12 mg/dL (9-16); Calcium 9.7 mg/dL (8.4-10.2); Carbon Dioxide 28 mmol/L (22-29); Chloride 105 mmol/L (96-108); Creatinine Clr Calc Pharmacy 69.4; Estimated Glomerular Filt Rate > 60; Magnesium 1.7 mg/dL (1.6-2.6); Potassium 3.6 mmol/L (3.3-5.1); Sodium 143 mmol/L (135-145); Total Protein 6.6 g/dL (6.5-8.0)
--- NOTE | 2025-07-05 09:56 | MHC.CM.PN ---
IMM 07/05/25 Patient discharged to home self care. He has arranged for transportation home.
[2025-07-05 11:18] LABS: Glucose, Whole Blood 146 mg/dL (60-115)
[2025-07-05] MEDS: 0.9 % Sodium Chloride Flush 3 ML SYRINGE IVFLUSH (11:29)
--- NOTE | 2025-07-05 12:38 | PM.DS ---
DS: Providers Provider Date of Service: 07/05/25 Date of admission: 07/02/25 08:49 Date of discharge: 07/05/25 Primary care physician: TESS Cid Attending physician on discharge: Jan Moss DS: Diagnosis Discharge Diagnosis (1) Vomiting: Status: Acute (2) Diabetes mellitus with coincident hypertension: Status: Acute (3) Meniere disease: Status: Acute (4) Hypertension: Status: Acute (5) Hypothyroidism: Status: Acute (6) BPH w urinary obs/LUTS: Status: Acute DS: Summary Hospital Course Hospital Course: 64-year-old male who was admitted to hospital for intractable nausea and vomiting, with CT scan showing diverticulosis and duodenum, jejunum and colon. Patient was treated with meclizine, p.r.n. Zofran, Reglan and resolution of Pepto-Bismol. Once patient was no longer presenting with nausea/vomiting, tolerating foods was able to be discharge. All new and continued medications were discussed in depth with the patient, and new prescriptions were given directly to patient and/or verification of the prescriptions were sent to patient's preferred pharmacy directly. All side effects were discussed. Follow-up instructions were given. Patient voiced understanding. Patient was given the opportunity ask questions and express concerns, all of which were answered to their satisfaction. Patient was instructed to follow-up with his PCP within 3 to 10 days of discharge, as well as follow up with GI and head to the nearest emergency room or call 911 if symptoms worsen or new symptoms develop. This is a summary of the patient's stay; for more complete details please see chart. More than 35 minutes was spent with patient regarding workup, diagnosis and follow-up. Intractable Nausea, vomiting, to rule out gastroparesis, resolved Abdominal CT scan with small hiatal hernia and no acute findings. labs reviewed, no electrolyte abnormalities, negative infectious etiology. follow up w/ GI and PCP, take peptobismol oral solution as needed. Hypertension stable continue amlodipine and HCTZ DM 2 Continue metformin and glipizide Hypothyroidism Continue levothyroxine Hyperlipidemia Continue statin and ASA BPH Continue finasteride and doxazosin Status at Discharge Functional status at discharge: independent ambulation Overall status at discharge: patient is back to baseline Time Attestation Discharge Coordination Time (in mins): greater than 35 minutes Quality: Safe Use of Opioids Does Pt have an Active Cancer Diagnosis on the Problem List?: No Quality: Stroke Does the patient have a stroke diagnosis?: No Physical Exam Exam: Exam: General: AxOx3, No acute distress Head: AT/NC ENT: Moist mucous membranes Neck: supple CVS; RRR, S1 S2 normal Lungs: Clear bilateral breath sounds, no wheezes or crackles Abd: Soft non tender, non distended Ext: No edema and no calf tenderness MSK: moving all 4 limbs Skin: No cyanosis or edema Psych: Cooperative with exam Neurology: no focal deficit Vital Signs: Vital Signs: Last Vital Signs Temp 97.1 F 07/05/25 07:34 Pulse 68 07/05/25 07:34 Resp 12 07/05/25 07:34 BP 158/76 H 07/05/25 07:34 Pulse Ox 94 07/05/25 07:34 O2 Del Method Room Air 07/05/25 07:34 BMI result Body Mass Index 26.4 DS: Data Data Completed and Pending Labs on day of discharge: Laboratory Results - last 24 hr 07/04/25 07/04/25 07/05/25 16:34 19:45 07:18 WBC RBC Hgb Hct MCV MCH MCHC RDW Plt Count MPV Immature Gran % (Auto) Neut % (Auto) Lymph % (Auto) [place] % (Auto) Eos % (Auto) Baso % (Auto) Lymph # (Auto) [place] # (Auto) Eos # (Auto) Baso # (Auto) Abs Immat Gran (auto) Absolute Neuts (auto) Absolute Nucleated RBC Nucleated RBC % (auto) Sodium Potassium Chloride Carbon Dioxide Anion Gap BUN Creatinine Estim Creat Clear Calc Estimated GFR POC Glucose 116 H 225 H 134 H Random Glucose Calcium Magnesium Total Bilirubin AST ALT Alkaline Phosphatase Total Protein Albumin 07/05/25 07/05/25 08:55 11:10 WBC 5.2 RBC 4.45 L Hgb 13.5 L Hct 39.3 L MCV 88.3 MCH 30.3 MCHC 34.4 RDW 12.6 Plt Count 164 MPV 10.6 Immature Gran % (Auto) 0.4 Neut % (Auto) 68.7 Lymph % (Auto) 19.3 L [place] % (Auto) 6.8 Eos % (Auto) 4.2 H Baso % (Auto) 0.6 Lymph # (Auto) 1.0 L [place] # (Auto) 0.4 Eos # (Auto) 0.2 Baso # (Auto) 0.0 Abs Immat Gran (auto) 0.02 Absolute Neuts (auto) 3.6 Absolute Nucleated RBC 0.000 Nucleated RBC % (auto) 0.0 Sodium 143 Potassium 3.6 Chloride 105 Carbon Dioxide 28 Anion Gap 14 BUN 12 Creatinine 1.06 Estim Creat Clear Calc 69.4 Estimated GFR > 60 POC Glucose 146 H Random Glucose 192 H Calcium 9.7 Magnesium 1.7 Total Bilirubin 0.5 AST 60 H ALT 65 H Alkaline Phosphatase 89 Total Protein 6.6 Albumin 4.3 Discharge Plan Discharge Anticipated Discharge Date/Time: 07/05/25 09:54 Patient Disposition: Home, Self-Care Discharge Diagnosis: Suspect gastroparesis T2DM gastroenteritis Referrals: Rajiv Oviedo FNP-C [Primary Care Provider, Internal Medicine] - 1 Week Discharge Medications: Continued amlodipine 5 mg tablet 5 mg PO DAILY Qty: 90 8RF (DME) FreeStyle Lite Strips Strip See Rx Instructions .ROUTE .MEDSUPPLY Qty: 200 8RF Rx Instructions: TO CHECK BLOOD SUGARS TWICE A DAY hydrochlorothiazide 12.5 mg tablet 12.5 mg PO DAILY Qty: 90 8RF (DME) lancets 28 gauge misc See Rx Instructions topical .MEDSUPPLY Qty: 200 8RF Rx Instructions: FREESTYLE 28G- TO CHECK BLOOD SUGARS TWICE A DAY terazosin 5 mg capsule 5 mg PO BEDTIME 90 Days Qty: 90 3RF pravastatin 80 mg tablet 80 mg PO DAILY Qty: 90 8RF metformin 500 mg tablet 500 mg PO BID 90 Days Qty: 180 3RF levothyroxine 50 mcg tablet 50 mcg PO DAILY@0600 omeprazole 20 mg capsule,delayed release(DR/EC) 20 mg PO DAILY@0630 finasteride 5 mg tablet 5 mg PO BEDTIME glipizide 5 mg tablet 5 mg PO BEDTIME meclizine 25 mg tablet,chewable 25 mg PO DAILY PRN (Reason: Vertigo) aspirin [Adult Low Dose Aspirin] 81 mg tablet,delayed release (DR/EC) 81 mg PO DAILY Discharge Orders: Discharge Order (Routine); Ordered 07/05/25 Ordered By: Jan Moss Diet: Advance to usual diet Activity on Discharge: As tolerated Stand Alone Forms: Patient Portal Discharge page Print Language: Greek Care Plan Goals: See below Health Concerns: Possible gastroparesis, Meniere's disease, T2 dm Plan of Treatment: Counseling given on taking oral/suspension Pepto-Bismol in the setting of possible gastroparesis. Patient to follow up with his primary care provider as well as GI in outpatient setting. Assessment: 64-year-old male who presents to hospital for intractable nausea and vomiting, suspected gastroenteritis. With CT scan showing tuberculosis and duodenum, jejunum and colon. Patient with prior history of Meniere's disease treated with meclizine. Patient was given Reglan and oral suspension Pepto-Bismol. Today patient states that he is feeling better, nausea has resolved, able to tolerate his breakfast, no vomiting. Labs showing no electrolyte abnormalities. All new and continued medications were discussed in depth with the patient, and new prescriptions were given directly to patient and/or verification of the prescriptions were sent to patient's preferred pharmacy directly. All side effects were discussed. Follow-up instructions were given. Patient voiced understanding. Patient was given the opportunity ask questions and express concerns, all of which were answered to their satisfaction. Patient was instructed to follow-up with PCP within 3 to 10 days of discharge and head to the nearest emergency room or call 911 if symptoms worsen or new symptoms develop. This is a summary of the patient's stay; for more complete details please see chart. More than 35 minutes was spent with patient regarding workup, diagnosis and follow-up. Patient Instructions: Diabetic Gastroparesis (DC), Dehydration (DC), Gastroenteritis (DC), Acute Nausea and Vomiting (DC)
[2025-07-05 12:40] VITALS: BP 146/78; PULSE 87; RESP 18; TEMP 36.3; O2SAT 97
== END 2025-07-05 11:50 | disposition home or self-care (01) | DRG 392 ==
LOC: HO.ED 14:28 → HO.EDOVER 14:45 → HO.S3 15:00
PROVIDERS: Hospitalist; Physician Assistant Medical; Admitting Provider Nurse Practitioner Acute Care; Emergency Provider Emergency Medicine; Visit Provider Student in an Organized Health Care Education/Training Program
DX: K52.9 Noninfective gastroenteritis and colitis, unspecified (principal); E83.42 Hypomagnesemia; I10 Essential (primary) hypertension; E11.43 Type 2 diabetes mellitus with diabetic autonomic (poly)neuropathy; K31.84 Gastroparesis; E78.5 Hyperlipidemia, unspecified; K44.9 Diaphragmatic hernia without obstruction or gangrene; N40.0 Benign prostatic hyperplasia without lower urinary tract symptoms; Z20.822 Contact with and (suspected) exposure to COVID-19; Z87.891 Personal history of nicotine dependence; Z79.82 Long term (current) use of aspirin; Z79.84 Long term (current) use of oral hypoglycemic drugs; Z79.890 Hormone replacement therapy; Z79.899 Other long term (current) drug therapy
CPT/HCPCS: 36415; 71046; 74177; 80048; 80051; 80053; 81003; 82947; 83605; 83735; 85025; 85027; 87493; 87502; 87507; 87635; 93005; 99221; 99285; J1308; J1650; J2405; J3475; J3480; J7120; Q9967

== ENCOUNTER → 2025-07-01 11:21 | Outpatient (BNV) | payer MEDICARE, OTHER, SELFPAY | PROVIDERS: Emergency Provider Emergency Medicine; Visit Provider Family Medicine | DX: R05.9 Cough, unspecified (principal) | CPT/HCPCS: 71046 ==

== ENCOUNTER → 2025-07-01 14:32 | Outpatient (BNV) | payer MEDICARE, OTHER, SELFPAY | PROVIDERS: Admitting Provider Nurse Practitioner Acute Care; Emergency Provider Emergency Medicine; Visit Provider Nurse Practitioner Acute Care | DX: K52.9 Noninfective gastroenteritis and colitis, unspecified (principal); E11.9 Type 2 diabetes mellitus without complications; I10 Essential (primary) hypertension | CPT/HCPCS: 99223 ==

== ENCOUNTER 2025-07-02 08:49 | Outpatient (BNV) | payer MEDICARE, OTHER, SELFPAY | END 2025-07-02 10:07 | PROVIDERS: Admitting Provider Nurse Practitioner Acute Care; Emergency Provider Emergency Medicine; Visit Provider Internal Medicine Cardiovascular Disease | DX: I45.10 Unspecified right bundle-branch block (principal); I49.9 Cardiac arrhythmia, unspecified | CPT/HCPCS: 93010 ==

== ENCOUNTER 2025-07-10 11:14 | Outpatient (AMB) | payer MEDICARE, OTHER, SELFPAY ==
--- NOTE | 2025-07-10 11:36 | A.OFFPC_ITS ---
Vital Signs 07/10/25 11:37 Height 5 ft 9 in Weight 185 lb BMI 27.3 BP 120/64 Blood Pressure Location Lt brachial Position Sitting Pulse 95 Pulse Source Pulse Oximeter Temp 97.3 F Temp Source Temporal Artery Scan Pulse Oximetry (%) 96 Oxygen Delivery Method Room Air Intake Visit Reasons: [facility] [place]7 nausea/vomiting Intake Note: Patient is here for hospital discharge follow up. Patient was discharged [place] [facility] [place]05[place]25. Concreter Required: No Eligibility Manager: Not Required per policy Accompanied by: Self / Same As Patient Allergies lisinopril (LISINOPRIL) Allergy (Severe, Verified 07/10/25 11:37) ANGIOEDEMA, hives Medication List - Last Reconciled 07/10/25 by Harvinder Acuña MD amlodipine 5 mg PO DAILY aspirin (Adult Low Dose Aspirin) 81 mg PO DAILY blood sugar diagnostic (FreeStyle Lite Strips) TO CHECK BLOOD SUGARS TWICE A DAY finasteride 5 mg PO BEDTIME glipizide 5 mg PO BEDTIME hydrochlorothiazide 12.5 mg PO DAILY lancets FREESTYLE 28G- TO CHECK BLOOD SUGARS TWICE A DAY levothyroxine 50 mcg PO DAILY@0600 meclizine 25 mg PO DAILY PRN metformin 500 mg PO BID 90 days omeprazole 20 mg PO DAILY@0630 pravastatin 80 mg PO DAILY terazosin 5 mg PO BEDTIME 90 days Tobacco use date assessed: 07/10/25 Fall risk assessment: No Falls in past year Last assessed Fall Risk: 07/10/25 Dental Screening Dental Screen Date: 05/29/25 HPI HPI Comments History of Present Illness Details 64 yo M presenting after being admitted to the hospital 07/01 to 07/05 for nausea and vomiting. His symptoms improved with supportive treatment. HE was diagnosed with diverticulosis and gastroenteritis. The patient was having diarrhea and cough prior to the hospitalization. However his COVID test was negative. Patient was switched recently to Sitagliptin from Glipizide. However patient declined the change and he is back on Glipizide. He brought a log of his blood sugar with one reading of 65 during which the patient was asymptomatic. [facility] Medical History Meniere disease Diabetes mellitus with coincident hypertension Hypertension Hypothyroidism Diabetes Surgical History History of umbilical hernia repair History of cholecystectomy Family History Father No problems noted. Mother No problems noted. Son Substance use disorder Other Mental health disorder Social History (Updated 07/10/25 @ 11:45 by LACEY Wells) Housing: House Alcohol intake: current Alcohol intake frequency: a few times a month Patient Tobacco Use Status: Former Tobacco user Tobacco use type: Cigarette e-Cigarette/Vaping Use: Never Used Second Hand Smoke Exposure: Yes Advance Directives Date on File: 07/01/25 service: No Current occupational status: retired Current occupation: rt hand Cognitive needs: No Hearing needs: No Vision needs: Yes Questionnaire Thrive Questionnaire Date Thrive assessed: 05/23/25 I am a: Patient What is your living situation today?: I have a steady place to live Within the past 12 months, did the food you bought not last and you didn't have the money to get more?: Never true Within the past 12 months, did you worry whether your food would run out before you got money to buy more?: Never true Do you have trouble paying for medicines?: No Do you have trouble getting transportation to medical appointments?: No Do you have trouble paying your heating and electricity bill?: No Do you have trouble taking care of your child, family member or friend?: No Do you have trouble with day-to-day activities such as bathing, preparing meals, shopping, managing finances, etc.?: No Are you currently unemployed and looking for a job?: No Are you interested in more education?: No Please select the resources that you would like help with: None Currently or been in a relationship where the following occur: No concerns reported THRIVE Score: 0 ARYA-7 AMB Questionnaire ARYA-7 Date ARYA - 7 assessed: 05/29/25 Source: Developed by Drs. Laureano Dean, Gale Chandler, Baltazar Delaney and colleagues, with an educational alva from [employer] Review of Systems Const Details: Positives besides what was mentioned in HPI are in BOLD Constitutional: No Weight Change, No Fever, No Chills, No Night Sweats, No Fatigue, No Malaise ENT/Mouth: No Hearing Changes, No Ear Pain, No Nasal Congestion, No Sinus Pain, No Hoarseness, No sore throat, No Rhinorrhea, No Swallowing Difficulty Eyes: No Eye Pain, No Swelling, No Redness, No Foreign Body, No Discharge, No Vision Changes Cardiovascular: No Chest Pain, No SOB, No PND, No Dyspnea on Exertion, No Orthopnea, No Claudication, No Edema, No Palpitations Respiratory: No Cough, No Sputum, No Wheezing, No Smoke Exposure, No Dyspnea Gastrointestinal: No Nausea, No Vomiting, No Diarrhea, No Constipation, No Pain, No Heartburn, No Anorexia, No Dysphagia, No Hematochezia, No Melena, No Flatulence, No Jaundice Genitourinary: No Dysmenorrhea, No DUB, No Dyspareunia, No Dysuria, No Urinary Frequency, No Hematuria, No Urinary Incontinence, No Urgency, No Flank Pain, No Urinary Flow Changes, No Hesitancy Musculoskeletal: No Arthralgias, No Myalgias, No Joint Swelling, No Joint Stiffness, No Back Pain, No Neck Pain, No Injury History Skin: No Skin Lesions, No Pruritis, No Hair Changes, No Breast/Skin Changes, No Nipple Discharge Neuro: No Weakness, No Numbness, No Paresthesias, No Loss of Consciousness, No Syncope, No Dizziness, No Headache, No Coordination Changes, No Recent Falls Psych: No Anxiety/Panic, No Depression, No Insomnia, No Personality Changes, No Delusions, No Rumination, No SI/HI/AH/VH, No Social Issues, No Memory Changes, No Violence/Abuse Hx., No Eating Concerns Heme/Lymph: No Bruising, No Bleeding, No Transfusions History, No Lymphadenopathy Endocrine: No Polyuria, No Polydipsia, No Temperature Intolerance Physical exam (Primary Care) Vital Signs: Last Vital Signs Temp 97.3 F 07/10/25 11:37 Pulse 95 07/10/25 11:37 BP 120/64 07/10/25 11:37 Pulse Ox 96 07/10/25 11:37 Oxygen Delivery Method Room Air 07/10/25 11:37 BMI result Body Mass Index 27.3 Tobacco/Smoking Status: Tobacco use Status Tobacco use date assessed 07/10/25 07/10/25 11:42 Patient Tobacco Use Status Former Tobacco user 07/10/25 11:46 Tobacco use type Cigarette 07/10/25 11:45 e-Cigarette/Vaping Use Never Used 07/10/25 11:45 Thrive Assessment: Date of Thrive Assessment Date Thrive assessed 05/23/25 07/10/25 11:42 Currently or been in a relationship where the following occur: No concerns reported Const Other: Pertinent findings are in BOLD GENERAL APPEARANCE NAD, activity normal for age, well developed/ well nourished, no cyanosis, pallor, or diaphoresis. EYES lids/conjunctiva normal. EARS/NOSE/THROAT Mucous membranes moist, nares normal, lips/teeth normal uvula midline without oral pharyngeal erythema, exudate or swelling TMs normal bilaterally. No lymphangitis/lymphedema. HEAD/NECK normocephalic atraumatic, no facial trauma, neck is supple. RESPIRATORY respiratory effort normal, speaks in full sentences, no tripod position, no accessory muscle use. Lungs clear to auscultation without rhonchi, wheezes, rales CARDIAC Regular rate and rhythm, no edema. ABDOMINAL Soft, ND/NT. No evidence of fluid wave. No pulsatile masses on exam, rebound tenderness, Ramires sign or pain over Mcburney's point. MUSCLES/EXTREMITIES No abnormal range of motion, no swelling. SKIN Warm, pink and dry. No rashes, dermatoses, petechiae or lesions. NEUROLOGICAL Speech is clear and appropriate. Normal level of consciousness. Gait and coordination are normal. 5/5 strength in all extremities. PSYCH Normal mood and affect. Judgement/competence is appropriate Coding Level of Care Code Est Pt Level 4 (78886) Diagnoses Gastroenteritis K52.9 Type 2 diabetes mellitus with other specified complication, without long-term current use of insulin E11.69 Diabetes mellitus type: type 2 Diabetes mellitus custodial insulin use: without custodial use Diabetes mellitus complication status: with other specified complication Time Spent (min) 30 Assessment & Plan Assessment & Plan (1) Gastroenteritis: Code(s): K52.9 - Noninfective gastroenteritis and colitis, unspecified Category: Medical Plan: Recent hospitalization for diarrhea, vomiting and abdominal pain. Patient's symptoms improved with supportive treatment. Currently asymptomatic. (2) Diabetes: Code(s): E11.9 - Type 2 diabetes mellitus without complications Category: Medical Qualifiers: Diabetes mellitus type: type 2 Diabetes mellitus equipment operator intermodal yard insulin use: without equipment operator intermodal yard use Diabetes mellitus complication status: with other sp ecified complication Qualified Code(s): E11.69 - Type 2 diabetes mellitus with other specified complication Plan: Patient declined switching to Sitagliptin. Patient is back on Glipizide that was previously stopped by Rajiv Oviedo. His sugar log showed blood sugars ranging from 65 to 135 pre meal. Patient was asymptomatic during the hypoglycemia episode of 65. Advised patient to follow-up with Rajiv about the DM management. Plan No changes in the patient plan since his diarrhea and vomiting improved. Orders: Referrals Ear/Nose/Throat Referral H61.21 - Impacted cerumen, right ear, H81.03 - Meniere's disease, bilateral
[2025-07-10 11:37] VITALS: BP 120/64; PULSE 95; TEMP 36.3; O2SAT 96; BMI 27.3
== END 2025-07-10 12:01 | disposition home or self-care (01) ==
LOC: HO.HMCH 11:15
PROVIDERS: Visit Provider Internal Medicine
DX: K52.9 Noninfective gastroenteritis and colitis, unspecified (principal); E11.69 Type 2 diabetes mellitus with other specified complication

== ENCOUNTER → 2025-07-10 11:14 | Outpatient (BNVA) | payer MEDICARE, OTHER, SELFPAY | PROVIDERS: Visit Provider Internal Medicine | DX: K57.90 Diverticulosis of intestine, part unspecified, without perforation or abscess without bleeding (principal); R11.2 Nausea with vomiting, unspecified; K52.9 Noninfective gastroenteritis and colitis, unspecified; E11.69 Type 2 diabetes mellitus with other specified complication; H61.21 Impacted cerumen, right ear; H81.03 Meniere's disease, bilateral; Z79.4 Long term (current) use of insulin; Z79.899 Other long term (current) drug therapy | CPT/HCPCS: 99212 ==

== ENCOUNTER 2025-09-06 10:52 | Outpatient (AMB) | payer MEDICARE, OTHER, SELFPAY ==
[2025-09-06 11:02] VITALS: BP 148/60; PULSE 84; O2SAT 96; BMI 28.6
--- NOTE | 2025-09-06 11:02 | MHC.OFFWIV ---
Intake Vital Signs 09/06/25 11:02 Height 5 ft 9 in Weight 194 lb BMI 28.6 BP 148/60 H Blood Pressure Location Lt brachial Position Sitting Pulse 84 Pulse Source Pulse Oximeter Pulse Oximetry (%) 96 Oxygen Delivery Method Room Air Intake Visit Reasons: EP Right blocked ear Intake Note: Patient presents c/o right ear blocked, irritated. Patient Tobacco Use Status: Former Tobacco user Allergies lisinopril (LISINOPRIL) Allergy (Severe, Verified 09/06/25 11:05) ANGIOEDEMA, hives HPI EP Right blocked ear HPI Details History of Present Illness The patient is a 65 year old male presenting with an occluded right ear. Impacted cerumen, right ear: - The patient reports that his right ear became plugged with wax, for which he used zosm-cyc-iltnloy drops for four days before flushing it with water. - Following the flush, the ear became instantly and completely clogged. - He is now experiencing developing pain and difficulty hearing on the right side. - He denies using Q-tips or inserting any other objects into his ear. Plan - The right ear will be flushed to remove the impacted cerumen. Review of Systems - General: No fever no chills - Neurological: No headaches no dizziness - Ear nose throat: No sore throat Physical Exam General: No acute distress HEENT: Right ear completely clogged with wax, slight erythema after cleaning but no pain with tragus pressure Neck: Supple Respiratory system: Able to talk in full sentences, no audible wheeze Extremities: No new findings SHOE LACER: Alert awake oriented x3 motor intact Skin: Normal turgor [facility] Medical History Meniere disease Diabetes mellitus with coincident hypertension Hypertension Hypothyroidism Diabetes Surgical History History of umbilical hernia repair History of cholecystectomy Family History Father No problems noted. Mother No problems noted. Son Substance use disorder Other Mental health disorder Social History Housing: House Alcohol intake: current Alcohol intake frequency: a few times a month Patient Tobacco Use Status: Former Tobacco user Tobacco use type: Cigarette e-Cigarette/Vaping Use: Never Used Second Hand Smoke Exposure: Yes Advance Directives Date on File: 07/01/25 service: No Current occupational status: retired Current occupation: rt hand Cognitive needs: No Hearing needs: No Vision needs: Yes Physical Exam Vital Signs: Last Vital Signs Pulse 84 09/06/25 11:02 BP 148/60 H 09/06/25 11:02 Pulse Ox 96 09/06/25 11:02 Oxygen Delivery Method Room Air 09/06/25 11:02 BMI result Body Mass Index 28.6 Office Procedures Cerumen Removal From which ear canal was the cerumen removed: right Removal: irrigation Notes: patient tolerated procedure well, no complications and ear canal clear [id number] Irrigation/Lavage Assessment & Plan Assessment & Plan (1) Impacted cerumen, right ear: Code(s): H61.21 - Impacted cerumen, right ear (2) Otalgia of right ear: Code(s): H92.01 - Otalgia, right ear Plan Impacted cerumen, right ear: - The patient reports that his right ear became plugged with wax, for which he used wosk-iqf-lxhpcis drops for four days before flushing it with water. - Following the flush, the ear became instantly and completely clogged. - He is now experiencing developing pain and difficulty hearing on the right side. - He denies using Q-tips or inserting any other objects into his ear. Plan - The right ear flushed to remove the impacted cerumen. patient feeling better, hearing improved Coding Level of Care Code Est Pt Level 3 (70600) Diagnoses Impacted cerumen, right ear H61.21 Otalgia of right ear H92.01 CPT Codes Office Procedure - CPT: 98024-Ryp Irrigation/Lavage ([id number])
== END 2025-09-06 11:33 | disposition home or self-care (01) ==
PROVIDERS: Visit Provider Internal Medicine
DX: H61.21 Impacted cerumen, right ear (principal); H92.01 Otalgia, right ear

== ENCOUNTER → 2025-09-06 10:52 | Outpatient (BNVA) | payer MEDICARE, OTHER, SELFPAY | PROVIDERS: Visit Provider Internal Medicine | DX: H61.21 Impacted cerumen, right ear (principal); H92.01 Otalgia, right ear | CPT/HCPCS: 69209; 99212 ==